=== PATIENT | male | born 1935 | race Caucasian/White ===

== ENCOUNTER → 2016-11-30 | Outpatient (CLI) | payer MEDICARE | LOC: NC 13:30 | PROVIDERS: ATTEND Family Medicine | DX: I48.91 Unspecified atrial fibrillation (principal) ==

== ENCOUNTER → 2016-12-06 | Outpatient (CLI) | payer MEDICARE | LOC: GMAJ 14:54 | PROVIDERS: ATTEND Family Medicine | DX: M06.9 Rheumatoid arthritis, unspecified (principal) ==

== ENCOUNTER 2016-12-07 11:58 | Observation (INO) | payer MEDICARE ==
[2016-12-07] MEDS ORDERED: LACTATED RINGERS 1,000 ML IVS ONE (12:27)
[2016-12-07] MEDS ORDERED: KETOROLAC TROMETHAMINE INJ 30 MG/ML VIAL IV ONE (12:27)
[2016-12-07] MEDS ORDERED: ONDANSETRON ODT 8 MG TAB SL SCH (12:30)
--- NOTE | 2016-12-07 13:46 | RAD ---
EXAM DESCRIPTION: XR ABDOMEN 2 VIEWS SUPINE ERECT CLINICAL HISTORY: back pain n/v COMPARISON: December 29, 2013 FINDINGS: AP supine and upright views of the abdomen show a nonspecific, nonobstructive bowel gas pattern with no evidence for free intraperitoneal air. Surgical clips from cholecystectomy are seen. Surgical clips in the mid epigastric region are also noted. No air-filled dilated loops of small bowel are seen. No significant air-fluid levels are identified. No obvious organomegaly is seen. No abnormal calcifications are seen in the expected location of the renal collecting systems. The radiopaque densities to the left of the lower lumbar spine is seen measuring up to 10 mm vertically. Severe vascular calcifications are identified. Pancreatic calcifications are noted suggesting chronic pancreatitis. Single view of the chest shows enlargement of the cardiac silhouette without pulmonary vascular congestion. Tortuosity of the thoracic aorta with calcifications of the aortic arch are seen. . Lungs are normally aerated and clear. IMPRESSION: Vertically oriented radiopaque oval density to the left of the spine at the L4-5 level could represent fill in the GI tract versus ureteral calculus. Correlate with any hematuria or flank pain. CT imaging could be useful for better evaluation. Otherwise nonspecific abdominal series stable from previous. Electronically signed by: Jon Way MD 12/07/2016 13:44
[2016-12-07] MEDS ORDERED: FLUCONAZOLE 100 MG TAB PO ONE (14:54)
--- NOTE | 2016-12-07 15:38 | CT ---
EXAM DESCRIPTION: CT ABDOMEN PELVIS WITHOUT IV CONTRAST CLINICAL HISTORY: hematuria, left flank pain COMPARISON: Abdominal series same day TECHNIQUE: Noncontrast transaxial CT images of the abdomen and pelvis are obtained with coronal and sagittal reconstructed images. Images are partly degraded by patient breathing motion artifact limiting detailed evaluation. CT scan done according to ALARA (As Low As Reasonably Achievable). FINDINGS: The visualized lung bases show mild peripheral interstitial thickening. Trace right pleural effusion is seen. Given the limitations of a noncontrast exam the liver, spleen, and adrenal glands are unremarkable. There is surgical absence of the gallbladder. There is a calcified 2 cm mass in the region of the head of the pancreas. Multiple irregular calcifications are seen throughout the body to tail of the pancreas. The pancreas is overall atrophic with mild diffuse dilatation of the main pancreatic duct. Surgical clips at the distal esophageal to gastroesophageal junction are seen consistent with prior surgery in this region. Correlate with patient history. Severe atherosclerotic disease is noted. A 7 mm nonobstructing calcification is seen in the an upper pole calyx of the right kidney. There is a 9 x 13 mm calcification in the proximal left ureter contributing to mild left hydronephrosis. The AP diameter of the left renal pelvis is 2 cm. Calcification is identified at the level of L3. Remainder of the ureter is unremarkable. Urinary bladder is unremarkable. Prostate is enlarged with mild central calcifications seen. Appendix is within normal limits. No small bowel obstruction is seen. Moderate amount of formed fecal material seen throughout the colon. There are mild to moderate scattered diverticuli of the colon without associated inflammatory changes or fluid collections. No pathologic lymphadenopathy. Orthopedic screw fixation of the left femoral head and neck is seen. There are moderate osteoarthritic changes of both hips. Some cortical lucency in the left femoral head is seen. Moderate degenerative changes of the spine are seen. There is spinal canal stenosis and foraminal encroachment in the lower lumbar spine region. IMPRESSION: Mild left hydronephrosis is seen secondary to in 9 x 13 mm calcification in the proximal left ureter. This corresponds to the findings seen on plain film x-ray s. Nonobstructing right nephrolithiasis. Significant pancreatic calcifications are seen suggesting history of chronic pancreatitis. Colon diverticulosis without CT evidence of diverticulitis. Other findings as described in body of the report. Electronically signed by: Jon Way MD 12/07/2016 15:36
[2016-12-07] MEDS ORDERED: cefTRIAXone SODIUM 1 GM in SODIUM CHL 0.9% 50ML MIN-BAG+ 50 ML IVPB ONE (15:54)
[2016-12-07] MEDS ORDERED: cefTRIAXone SODIUM 1 GM VIAL ONE (15:57)
[2016-12-07] MEDS ORDERED: SODIUM CHL 0.9% 50ML MIN-BAG+ 50 ML IVPB ONE (15:58)
--- NOTE | 2016-12-07 16:54 | ED.PDOC ---
History of Present Illness - General Chief Complaint: Problem Stated Complaint: difficulty urinating,left flank discomfort Time Seen by Provider: 12/07/16 12:26 Source: patient, family Exam Limitations: no limitations - History of Present Illness Initial Comments: the patient is an 81-year-old male presenting to the emergency room secondary tonausea and vomiting related to left flank pain as well as some dysuria and difficulty with urination. This started proximally 6 hours prior to arrival. No fevers. He has passed kidney stones in the past and these have been similar symptoms. He did see a urologist one and a half years ago when he passed another stone at that time. He apparently did not have to have lithotripsy at that time. He was told he had a larger stone in the kidney that may yet turn loose. The patient is anticoagulated on Coumadin. He is not having any other symptoms. He is not having abdominal pain. No fevers. No syncope or near syncope or chest pain. Timing/Duration: 4-6 hours Severity: moderate Improving Factors: nothing Worsening Factors: nothing Associated Symptoms: loss of appetite, malaise, nausea/vomiting Allergies/Adverse Reactions: Allergies NO KNOWN ALLERGY Allergy (Verified 07/24/16 08:27) Home Medications: Ambulatory Orders Folic Acid 1 mg PO AM 12/25/13 Losartan Potassium 50 mg PO DAILY 12/25/13 Methotrexate Sodium [Methotrexate] 12.5 mg PO .QFRIDAYS 12/25/13 Terazosin [Hytrin] 10 mg PO BEDTIME 12/25/13 Warfarin Sodium 2.5 mg PO DAILY 12/25/13 Albuterol Sulfate Nebs [Proventil Nebs] 2.5 mg NEB QID PRN 02/17/16 Citalopram Hydrobromide [Celexa] 10 mg PO DAILY 02/17/16 Tamsulosin [Flomax] 0.4 mg PO DAILY 02/17/16 Review of Systems - Review of Systems Constitutional: States: malaise EENTM: States: no symptoms reported Respiratory: States: no symptoms reported Cardiology: States: no symptoms reported Gastrointestinal/Abdominal: States: nausea, vomiting Genitourinary: States: dysuria, pain Musculoskeletal: States: back pain Skin: States: no symptoms reported Endocrine: States: no symptoms reported All other Systems: No Change from Baseline Past Medical History (General) - Patient Medical History Hx Seizures: No Hx Stroke: Yes - TIA's Hx Asthma: No Hx of COPD: Yes Hx Cardiac Disorders: Yes - Atrial fib Hx Congestive Heart Failure: No Hx Pacemaker: No Hx Hypertension: Yes Hx Diabetes: No Hx MRSA: No Surgical History: no surgical history - Vaccination History Hx Tetanus, Diphtheria Vaccination: Yes Hx Influenza Vaccination: Yes Hx Pneumococcal Vaccination: Yes - Social History Hx Tobacco Use: Yes - uses E-cigs now Hx Chewing Tobacco Use: No Hx Alcohol Use: No Hx Substance Use: No Hx Substance Use Treatment: No Hx Depression: Yes Hx Physical Abuse: No Hx Emotional Abuse: No Hx Suspected Abuse: No Family Medical History - Family History Father Living Status: Cause of : prostate cancer Brother Family History: No Known Living Status: Hx Family Congestive Heart Failure: Yes Hx Family Hypertension: Yes Hx Cardiac Disease: Yes - CABG Hx Family;Other: Another sibling with DM and cardiac hx Physical Exam - Physical Exam General Appearance: Alert, Obvious distress Eye Exam: bilateral normal Ears, Nose, Throat: normal ENT inspection, normal pharynx Neck: full range of motion, supple, normal inspection Respiratory: chest non-tender, lungs clear, normal breath sounds, no respiratory distress, no accessory muscle use Cardiovascular/Chest: normal peripheral pulses, no edema, other - regular rate Peripheral Pulses: radial,right: 2+, radial,left: 2+, dorsalis pedis,right: 2+, dorsalis pedis,left: 2+ Gastrointestinal/Abdominal: normal bowel sounds, non tender, soft Rectal Exam: deferred Back Exam: CVA tenderness (L) - mild Extremity: normal range of motion, non-tender, normal inspection, no pedal edema , normal capillary refill Neurologic: alert, normal mood/affect, oriented x 3 Skin Exam: normal color Comments: Vital Signs - 24 hr 12/07/16 12/07/16 12/07/16 12:10 14:34 14:38 Temperature 98.5 F Pulse Rate [ 60 56 L 58 L Left Brachial] Respiratory 20 16 18 Rate Blood Pressure 171/108 170/81 172/92 [Left Arm] O2 Sat by Pulse 96 96 96 Oximetry Progress - Progress Progress: 12/07/16 16:55 the patient is an 81-year-old male with left ureterolithiasis from a stone that is likely too large to pass on its own. The patient did have significant pain and nausea and vomiting upon arrival. He has received some pain medications and nausea medications and is doing better. He has also received some IV fluids. The patient will be admitted overnight for pain control and nausea control. He will go see his urologist tomorrow morning at 8: 30 AM at his office. The patient did receive a dose of Diflucan and Rocephin for the bacteria and yeast seen in his urine. He does not appear septic. Renal function appears good. Admit for above reasons and monitoring. He will need to be nothing by mouth tomorrow morning before going to the urologist office. - Results/Orders Results/Orders: 12/07/16 12:30 Ondansetron Odt [Zofran ODT] 4 mg SL ONCE 12/07/16 14:00 URINE CULTURE W/COLONY COUNT Stat Laboratory Results - last 24 hr 12/07/16 12/07/16 12:10 14:00 WBC 7.9 RBC 4.26 L Hgb 13.0 L Hct 40.5 L MCV 95.1 H MCH 30.5 MCHC 32.0 L RDW 17.2 H Plt Count 171 MPV 10.2 Absolute Neuts (auto) 6.50 Absolute Lymphs (auto) 0.90 L Absolute Monos (auto) 0.40 Absolute Eos (auto) 0.10 Absolute Basos (auto) 0.10 Neutrophils % 81.5 H Lymphocytes % 11.5 L Monocytes % 5.2 Eosinophils % 0.9 L Basophils % 0.9 PT 21.2 H* INR 1.920 PTT (SP) 38.9 H Sodium 141 Potassium 3.9 Chloride 107 Carbon Dioxide 27 Anion Gap 10.9 L BUN 27 H Creatinine 0.86 BUN/Creatinine Ratio 31.4 H Random Glucose 137 H Serum Osmolality 288.5 Calcium 8.9 Total Bilirubin 0.4 AST 28 ALT 20 Alkaline Phosphatase 91 Creatine Kinase 137 CK-MB (CK-2) 1.5 CK-MB (CK-2) % Not Reportable Troponin I 0.02 Serum Total Protein 7.0 Albumin 4.1 Globulin 2.9 Albumin/Globulin Ratio 1.4 Amylase 117 H Lipase 23 Urine Color Maureen Urine Appearance Cloudy Urine pH 6.0 Ur Specific [place] 1.025 Urine Protein 100 H Urine Glucose (UA) Negative Urine Ketones 15 H Urine Blood Large H Urine Nitrite Negative Urine Bilirubin Small H Urine Urobilinogen 0.2 Ur Leukocyte Esterase Trace H Urine RBC >50 H Urine WBC 3-5 H Ur Epithelial Cells 0-1 Amorphous Sediment 2+ Urine Bacteria 2+ H Urine Yeast 2+ budding x-ray shows moderate constipation and a possible stone in the left ureter. CT scan confirms a 9 x 13 mm stone in the proximal left ureter with mild hydronephrosis. Departure - Departure Clinical Impression: Calcium ureterolithiasis, Uncontrolled pain Vomiting Qualifiers: Vomiting type: unspecified Vomiting Intractability: non-intractable Nausea presence: with nausea Qualifier Code: (R11.2) Nausea with vomiting, unspecified Disposition: Admit Patient Home Medications: Ambulatory Orders Folic Acid 1 mg PO AM 12/25/13 Losartan Potassium 50 mg PO DAILY 12/25/13 Methotrexate Sodium [Methotrexate] 12.5 mg PO .QFRIDAYS 12/25/13 Terazosin [Hytrin] 10 mg PO BEDTIME 12/25/13 Warfarin Sodium 2.5 mg PO DAILY 12/25/13 Albuterol Sulfate Nebs [Proventil Nebs] 2.5 mg NEB QID PRN 02/17/16 Citalopram Hydrobromide [Celexa] 10 mg PO DAILY 02/17/16 Tamsulosin [Flomax] 0.4 mg PO DAILY 02/17/16 Decision To Admit - Decistion To Admit Decision to Admit Reason: Medical Nature Decision to Admit Date: 12/07/16 Decision to Admit Time: 16:58
--- NOTE | 2016-12-07 17:07 | HP ---
SUPERVISING PHYSICIAN: Magdy Jones MD CHIEF COMPLAINT: Kidney stones. HISTORY OF PRESENT ILLNESS: This is an 81-year-old male patient who presented to the Emergency Room due to nausea and vomiting that radiated to the left flank as well as some dysuria and difficulty with urination. His symptoms started about 6 hours prior to arrival to the Emergency Room. He has had a significant history of kidney stones and per the patient, he was in so much pain that it caused the nausea and vomiting and he has had similar symptoms in the past. Dr. Hammond in [place] is his urologist. A CT scan was done and showed mild left hydronephrosis secondary to a 9 by 13 mm calcification in the proximal left ureter. The abdominal x-ray also showed vertically oriented radiopaque oval density to the left of the spine at the L4-5 level that could represent fill in the GI tract versus ureteral calculus. The Emergency Room physician called Dr. Hammond, the patient's urologist, and he recommended that he be admitted to the hospital overnight for pain control as well as intravenous fluid hydration and that Dr. Hammond would see the patient at 8: 30 in the morning in [place]. The patient was given Rocephin for his urinary tract infection, as well as intravenous fluids, Zofran, and Toradol. His nausea and vomiting resolved after his pain was controlled. I was called for admission. PAST MEDICAL HISTORY: 1. Atrial fibrillation. 2. Benign prostatic hypertrophy. 3. Hyperlipidemia. 4. Hypertension. 5. Peptic ulcer disease. 6. Cardiovascular disease. 7. Diverticulosis. 8. Renal stones. 9. Osteoporosis. 10. Rheumatoid arthritis. 11. Transient ischemic attacks. 12. Fatty liver disease. PAST SURGICAL HISTORY: 1. Cholecystectomy. 2. Fracture repair of the left hip. 3. Vagotomy and pyloroplasty. ALLERGIES: NO KNOWN DRUG ALLERGIES. SOCIAL HISTORY: He is and has three children. He is retired. He has a past history of cigarette smoking and he quit in 2011. He drinks alcohol rarely and he denies any illicit drug use. CODE STATUS: Full code. REVIEW OF SYSTEMS: Ten-point review of systems is negative with the exception of what was mentioned in the history of present illness. PHYSICAL EXAMINATION: VITAL SIGNS: Afebrile. Heart rate 50. Blood pressure 177/75. Respiratory rate 20. O2 saturation 94% on room air. GENERAL: This is an 81-year-old male patient who is lying in his hospital bed. He is in no acute distress. HEENT: Normocephalic, atraumatic. Pupils are equal and reactive. Oropharynx is clear. Oral mucous membranes are moist. NECK: Supple without mass. No jugular venous distention. RESPIRATORY: Clear to auscultation bilaterally. CHEST: There is equal rise and fall of the chest with inspiration and expiration. CARDIAC: Bradycardic rate and normal rhythm. BACK: There is some left CVA tenderness. ABDOMEN: Soft, nondistended, nontender. Bowel sounds are positive. EXTREMITIES: No cyanosis, clubbing or edema. Pedal pulses are palpable, +2 bilaterally. SKIN: There are no lesions or rashes. NEUROLOGIC: Awake, alert and oriented times three. LABORATORY: WBC 7.9, hemoglobin 13, hematocrit 40.5, platelet count 171. Sodium 141, potassium 3.9, chloride 107, carbon dioxide 27, BUN 27, creatinine 0.86. Amylase 117. Urine shows urine protein 100, urine ketones 15, urine blood large, urine bilirubin small, urine leukocyte esterase trace, urine RBCs greater than 50, urine WBCs 3 to 5, urine bacteria 2+. All other labs and films have been reviewed via the EMR. ASSESSMENT: 1. Nausea and vomiting. 2. 9 by 13 mm obstructing kidney stone in the left ureter. 3. Severe left flank pain related to #2. 4. Urinary tract infection. 5. Benign prostatic hypertrophy. 6. Atrial fibrillation. 7. Hypertension. PLAN: We will admit the patient overnight. I will give him intravenous fluids. I have ordered another dose of Toradol if needed although his pain has been quite well controlled with the Toradol. He has had no further complaints of nausea or vomiting, but he does have Zofran. I have held his Coumadin tonight. I have repeated his lab as well as coags in the morning. We will try to discharge him at about 6:45 in the morning so he can make his 8:[address] Hammond. After he sees Dr. Hammond, he will need to followup with . We will send all pertinent films and labs with him in the morning. We will have him on the telemetry to watch his heart rate. We will continue the patient closely and followup as needed. is the collaborating physician and available for consultation. #[id number] [facility]
[2016-12-07] MEDS ORDERED: ONDANSETRON INJ 4 MG/2 ML VIAL IV PRN (18:03)
[2016-12-07] MEDS ORDERED: HYDROcodone 5MG/APAP 325MG 1 EA TAB PO PRN (18:03)
[2016-12-07] MEDS ORDERED: SODIUM CHLORIDE 0.9% (FLUSH) 10 ML SYG IV PRN (18:03)
[2016-12-07] MEDS ORDERED: KCL 20MEQ/D5 1/2NS 1,000 ML IVS PRN (18:09)
[2016-12-07] MEDS ORDERED: KCL 20MEQ/D5 1/2NS 1,000 ML IVS ONE (18:11)
[2016-12-07] MEDS ORDERED: KETOROLAC TROMETHAMINE INJ 30 MG/ML VIAL ONE ×2 (18:21→20:39)
[2016-12-07] MEDS: KETOROLAC TROMETHAMINE INJ 30 MG/ML VIAL IV SCH (18:24)
[2016-12-07] MEDS ORDERED: IV SET AND CAP CHANGE INJ INJ SCH (18:30)
[2016-12-07] MEDS ORDERED: TERAZOSIN 5 MG CAP PO ONE (20:39)
[2016-12-07] MEDS ORDERED: TERAZOSIN 5 MG CAP PO SCH (21:00)
[2016-12-07] MEDS ORDERED: HYDROcodone 5MG/APAP 325MG 1 EA TAB ONE (22:27)
[2016-12-08] MEDS: KETOROLAC TROMETHAMINE INJ 30 MG/ML VIAL IV SCH (00:27)
[2016-12-08] MEDS ORDERED: SODIUM CHL 0.9% 50ML MIN-BAG+ 50 ML IVPB ONE (03:39)
[2016-12-08] MEDS ORDERED: cefTRIAXone SODIUM 1 GM VIAL ONE (03:39)
[2016-12-08] MEDS ORDERED: cefTRIAXone SODIUM 1 GM in SODIUM CHL 0.9% 50ML MIN-BAG+ 50 ML IVPB SCH (04:00)
[2016-12-08 06:36] VITALS: BP 172/77; TEMP 98.4; O2SAT 97
[2016-12-08] MEDS ORDERED: CITALOPRAM HYDROBROMIDE 10 MG PO SCH (09:00)
[2016-12-08] MEDS ORDERED: TAMSULOSIN 0.4 MG CAP PO SCH (09:00)
[2016-12-08] MEDS ORDERED: NON-FORMULARY MEDICATION 1 EA MIS (Losartan Potassium [Losartan Potassium] 50 MG) PO SCH (09:00)
--- NOTE | 2016-12-08 10:22 | DS ---
SUPERVISING PHYSICIAN: Wesley Veras MD DISCHARGE DIAGNOSIS: 1. 9 by 13 mm obstructing kidney stone in the left ureter. 2. Nausea and vomiting, mostly resolved and secondary to #1. 3. Severe left flank pain, related to #1. 4. Urinary tract infection. 5. Hypertension. 6. Benign prostatic hypertrophy. 7. Atrial fibrillation. HISTORY OF PRESENT ILLNESS: This is an 81-year-old male patient who presented to the Emergency Room due to intractable nausea and vomiting that radiated to the left flank as well as some dysuria and difficulty with urination. His symptoms started about 6 hours prior to arrival to the Emergency Room. He has had a significant history of kidney stones and per the patient, he was in so much pain that it caused extremely bad nausea and vomiting and he has had similar symptoms in the past. Dr. Hammond in [place] is his urologist. A CT scan was performed in the Emergency Room and showed mild left hydronephrosis secondary to a 9 by 13 mm calcification in the proximal left ureter. The abdominal x-ray confirmed the same findings. Emergency Room physician, Dr. Ketan Veras called Dr. Hammond and he recommended that he be admitted to the hospital overnight for pain control as well as intravenous fluid hydration and that Dr. Hammond would see the patient at 8:30 today on the day of discharge in his office in [place]. The patient was given Rocephin for his urinary tract infection, as well as intravenous fluids, Zofran , and Toradol. His nausea and vomiting resolved and his pain was well controlled with the Toradol. He was admitted to the hospital for observation, pain control, and intravenous fluids. HOSPITAL COURSE: Overnight, the patient did very well. His Coumadin was held overnight. He did receive two doses of Toradol and it was very effective for his pain. This morning, he had no complaints of nausea, vomiting, and just mild left flank pain. His labs in the Emergency Room showed WBC 7.9, hemoglobin 13, hematocrit 40. This morning, WBCs were 6.8, hemoglobin 11.1, hematocrit 33.7. CMP was basically within normal limits with the exception of his amylase was 117 in the Emergency Room and his BUN was 27 in the Emergency Room and BUN on discharge was 29. Urine showed urine protein 100, urine ketones 15, urine blood large amount, urine nitrite negative, urine bilirubin was small, urine leukocyte esterase trace, urine RBCs greater than 50, urine WBCs 3 to 5, and urine bacteria 2+, urine yeast 2+ budding. INR on admission was 1.92 and on discharge was 2.28. Coumadin was held last night. PT-T on admission was 38.9 and on discharge 40.3. DISCHARGE PLAN: We will discharge the patient in stable condition. He is to resume his previous activity as well as his previous diet. He is to see Dr. Hammond, his urologist, this morning at 8:30 for evaluation of the kidney stone. He was discharged home with his outpatient medications. He has been told to followup with within the next one to two weeks after his appointment with DR. Hammond. If he has any further complications or problems , he is to contact Dr. Hammond's office, ' office, or return to the hospital. Dr. Veras is the collaborating physician and available for consultation. DISCHARGE MEDICATIONS: 1. Warfarin. 2. Hytrin. 3. Methotrexate. 4. Losartan. 5. Folic acid. 6. Citalopram. 7. Albuterol nebulizers. 8. Flomax. #[id number] [facility]
== END 2016-12-08 07:00 | disposition home health service (06) ==
LOC: ER 11:58 → MS 17:06
PROVIDERS: ADMIT Nurse Practitioner Acute Care; ATTEND Nurse Practitioner Acute Care
DX: N13.2 Hydronephrosis with renal and ureteral calculous obstruction (principal); N39.0 Urinary tract infection, site not specified; R11.2 Nausea with vomiting, unspecified; R10.32 Left lower quadrant pain; I10 Essential (primary) hypertension; N40.1 Benign prostatic hyperplasia with lower urinary tract symptoms; I48.91 Unspecified atrial fibrillation; E78.5 Hyperlipidemia, unspecified; M81.0 Age-related osteoporosis without current pathological fracture; M06.9 Rheumatoid arthritis, unspecified; K57.30 Diverticulosis of large intestine without perforation or abscess without bleeding; Z79.01 Long term (current) use of anticoagulants; Z79.899 Other long term (current) drug therapy; Z87.442 Personal history of urinary calculi; Z87.11 Personal history of peptic ulcer disease; Z86.73 Personal history of transient ischemic attack (TIA), and cerebral infarction without residual deficits; Z87.891 Personal history of nicotine dependence; Z90.49 Acquired absence of other specified parts of digestive tract
CPT/HCPCS: 36415 ×3; 74020; 74176; 80053 ×2; 81001; 82150; 82550; 82553; 83690; 84484; 85025 ×2; 85610 ×2; 85730 ×2; 87086; 94762; 96361; 96365; 96366; 96375; 96376 ×2; 99284; G0378; J0696 ×2; J1885 ×3; J7050 ×2; J7120

== ENCOUNTER → 2016-12-19 | Outpatient (CLI) | payer MEDICARE | LOC: NC 12:05 | PROVIDERS: ATTEND Family Medicine | DX: I48.91 Unspecified atrial fibrillation (principal) ==

== ENCOUNTER 2017-01-20 09:29 | Observation (INO) | payer MEDICARE ==
--- NOTE | 2017-01-20 11:14 | CT ---
EXAM DESCRIPTION: Head CLINICAL HISTORY: htn, addi, weakness, anticoag, fall COMPARISON: January 20, 2017 TECHNIQUE: Noncontrast transaxial CT images of the head are obtained from base to vertex. CT scan was done according to ALARA (As Low as Reasonably Achievable). FINDINGS: The midline structures are not displaced. Sulci are age-appropriate. There are areas of decreased attenuation in the periventricular white matter and the white matter of the centrum semiovale. There is no evidence of mass, mass-effect, hydrocephalus, or acute intracranial hemorrhage. No abnormal extra axial fluid collection is seen. Bone windows show no evidence of depressed skull fracture. Moderate vascular calcifications are seen. Mild mucosal thickening of the ethmoid air cells is seen. IMPRESSION: 1. Age-appropriate atrophy with evidence of old small vessel ischemic type changes seen. 2. No acute abnormality is seen on noncontrast CT of the head. Electronically signed by: Jon Way MD 01/20/2017 11:13 AM SERVICES DELIVERY DRIVER
--- NOTE | 2017-01-20 11:16 | RAD ---
EXAM DESCRIPTION: Chest,1 View CLINICAL HISTORY: htn, weakness COMPARISON: None. IMPRESSION: Single AP portable upright view of the chest shows cardiac silhouette and pulmonary vasculature to be within normal limits. Lungs are mildly hyperinflated without acute infiltrate or consolidation. No obvious pleural effusion or pneumothorax is seen. Electronically signed by: Jon Way MD 01/20/2017 11:15 AM [employer] [employer]
[2017-01-20] MEDS ORDERED: SPIRONOLACTONE 25 MG TAB PO ONE (11:25)
[2017-01-20] MEDS ORDERED: ALPRAZolam 0.25 MG TAB PO ONE (11:25)
[2017-01-20] MEDS ORDERED: amLODIPine BESYLATE 5 MG TAB PO ONE (11:25)
--- NOTE | 2017-01-20 12:36 | ED.PDOC ---
History of Present Illness - General Chief Complaint: General Time Seen by Provider: 01/20/17 10:10 Source: patient, family Exam Limitations: clinical condition - History of Present Illness Initial Comments: The patient is an 81-year-old male presenting to the emergency room with his family secondary to some dizziness weakness and fatigue as well as a mild headache since he had a fall 2 days ago at home. He was turning around in his kitchen when he tripped and fell backwards. He has the crown of the scalp on the left side posteriorly on the edge of the stove. There was no definite loss of consciousness. Since that time he has been dizzy and weak. He does take a significant blood thinner. He does have a history of some mild bradycardia. He has significant only hypertensive today here with systolic blood pressures ranging from 185-210. Heart rates on telemetry monitoring have been ranging from 42 up to 60. He takes terazosin and losartan. he sees Dr. Salguero. his balance does seem poor today and he does seem quite weak in general. Timing/Duration: 24 hours Severity: moderate Improving Factors: rest Worsening Factors: movement Associated Symptoms: headaches, malaise, weakness Allergies/Adverse Reactions: Allergies NO KNOWN ALLERGY Allergy (Verified 01/20/17 09:49) Home Medications: Ambulatory Orders Folic Acid 1 mg PO AM 12/25/13 Losartan Potassium 50 mg PO BID 12/25/13 Methotrexate Sodium [Methotrexate] 12.5 mg PO .QFRIDAYS 12/25/13 Terazosin [Hytrin] 10 mg PO BEDTIME 12/25/13 Warfarin Sodium 2.5 mg PO DAILY 12/25/13 Albuterol Sulfate Nebs [Proventil Nebs] 2.5 mg NEB QID PRN 02/17/16 Citalopram Hydrobromide [Celexa] 10 mg PO DAILY 02/17/16 Review of Systems - Review of Systems Constitutional: States: malaise, weakness EENTM: States: no symptoms reported Respiratory: States: no symptoms reported Cardiology: States: no symptoms reported Gastrointestinal/Abdominal: States: no symptoms reported Genitourinary: States: no symptoms reported Musculoskeletal: States: no symptoms reported - chronic changes only Skin: States: no symptoms reported - with the exception of the healing 1 inch laceration to the left posterior scalp. No evidence of infection. Neurological: States: headache, weakness Endocrine: States: no symptoms reported All other Systems: No Change from Baseline Past Medical History (General) - Patient Medical History Hx Seizures: No Hx Stroke: No - TIAs Hx Asthma: No Hx of COPD: Yes Hx Cardiac Disorders: Yes - Atrial fib Hx Congestive Heart Failure: No Hx Pacemaker: No Hx Hypertension: Yes Hx Diabetes: No Hx MRSA: No Surgical History: no surgical history - Vaccination History Hx Tetanus, Diphtheria Vaccination: Yes Hx Influenza Vaccination: Yes Hx Pneumococcal Vaccination: Yes - Social History Hx Tobacco Use: Yes - E-cigs Hx Chewing Tobacco Use: No Hx Alcohol Use: No Hx Substance Use: No Hx Substance Use Treatment: No Hx Depression: Yes Hx Physical Abuse: No Hx Emotional Abuse: No Hx Suspected Abuse: No Family Medical History - Family History Father Living Status: Cause of : prostate cancer Brother Family History: No Known Living Status: Hx Family Congestive Heart Failure: Yes Hx Family Hypertension: Yes Hx Cardiac Disease: Yes - CABG Hx Family;Other: Another sibling with DM and cardiac hx Physical Exam - Physical Exam General Appearance: Comfortable, Frail - the patient has a 1 inch laceration to his posterior left scalp that is hemostatic with minimal gape of the wound, No apparent distress, Other - mildly drowsy Eye Exam: bilateral normal Ears, Nose, Throat: normal ENT inspection, normal pharynx, other - ild chronic hearing loss bilaterally Neck: non-tender, full range of motion, supple, normal inspection Respiratory: chest non-tender, lungs clear, normal breath sounds, no respiratory distress, no accessory muscle use Cardiovascular/Chest: normal peripheral pulses, no edema, other - bradycardic Peripheral Pulses: radial,right: 2+, radial,left: 2+, dorsalis pedis,right: 2+, dorsalis pedis,left: 2+ Gastrointestinal/Abdominal: non tender, soft Rectal Exam: deferred Back Exam: no CVA tenderness Extremity: normal range of motion, non-tender, normal inspection, no pedal edema , normal capillary refill Neurologic: alert Skin Exam: normal color - see above Comments: Vital Signs - 24 hr 01/20/17 01/20/17 09:46 10:44 Temperature 97.8 F Pulse Rate [ 51 L 50 L Left Radial] Respiratory 18 18 Rate Blood Pressure 167/71 187/77 [Left Arm] O2 Sat by Pulse 98 98 Oximetry Progress - Progress Progress: 01/20/17 12:41 the patient is an 81-year-old male that appears to have significant postconcussive syndrome including generalized weakness, headache and dizziness. Additionally the patient has having significant sinus bradycardia down into the low 40s as well as uncontrolled hypertension with systolic blood pressures ranging from 185-210. The patient was given a dose of amlodipine here and will be watched as an inpatient overnight to make sure that the blood pressures do come down appropriately. Certainly the head injury, even though the head CT showed no acute pathology, may be pushing up the blood pressure some. The patient needs to be evaluated to see if he is going to be functional on his own in this current state or if he is going to require some rehabilitation. Contact with his wind energy technician would be beneficial for medication adjustments in regards to the bradycardia and hypertension. - Results/Orders Results/Orders: Laboratory Tests 01/20/17 10:25 WBC 6.0 RBC 4.29 L Hgb 13.1 L Hct 40.6 L MCV 94.8 H MCH 30.5 MCHC 32.2 L RDW 17.7 H Plt Count 148 MPV 9.8 Absolute Neuts (auto) 4.10 Absolute Lymphs (auto) 1.10 Absolute Monos (auto) 0.60 Absolute Eos (auto) 0.20 Absolute Basos (auto) 0.10 Neutrophils % 68.1 Lymphocytes % 18.4 L Monocytes % 9.9 H Eosinophils % 2.6 Basophils % 1.0 PT 18.9 H INR 1.680 PTT (SP) 37.1 H Sodium 141 Potassium 4.1 Chloride 106 Carbon Dioxide 27 Anion Gap 12.1 BUN 24 H Creatinine 0.95 BUN/Creatinine Ratio 25.3 H Random Glucose 98 Serum Osmolality 285.3 Calcium 8.9 Total Bilirubin 0.6 AST 21 ALT 22 Alkaline Phosphatase 100 Creatine Kinase 46 CK-MB (CK-2) 1.1 CK-MB (CK-2) % Not Reportable Troponin I 0.02 B-Natriuretic Peptide 160.0 H Serum Total Protein 6.9 Albumin 3.9 Globulin 3.0 Albumin/Globulin Ratio 1.[address] shows no evidence of acute injury. EKG shows sinus bradycardia at a rate of 47 bpm. There is a significant first- degree AV block. Possible Q-wave in lead 3 only. Slow R-wave transition in V2. Chest x-ray shows no acute pathology. - EKG/XRAY/CT CT Ordered: Yes Departure - Departure Clinical Impression: Uncontrolled hypertension, Sinus bradycardia, Postconcussive syndrome Disposition: Admit Patient Home Medications: Ambulatory Orders Folic Acid 1 mg PO AM 12/25/13 Losartan Potassium 50 mg PO BID 12/25/13 Methotrexate Sodium [Methotrexate] 12.5 mg PO .QFRIDAYS 12/25/13 Terazosin [Hytrin] 10 mg PO BEDTIME 12/25/13 Warfarin Sodium 2.5 mg PO DAILY 12/25/13 Albuterol Sulfate Nebs [Proventil Nebs] 2.5 mg NEB QID PRN 02/17/16 Citalopram Hydrobromide [Celexa] 10 mg PO DAILY 02/17/16 Decision To Admit - Decistion To Admit Decision to Admit Reason: Medical Nature Decision to Admit Date: 01/20/17 Decision to Admit Time: 12:45
--- NOTE | 2017-01-20 12:39 | HP ---
SUPERVISING PHYSICIAN: NADIA JONES MD CHIEF COMPLAINT: Weakness and "I hit my head." HISTORY OF PRESENT ILLNESS: This is an 81 year-old male patient who somehow slipped and hit his head on a stove this past Monday. He hit the left part of the back of his head. He denies any loss of consciousness but he could not get up. He did call 911 and they assisted him up. At that time, he did not come to the hospital but over the past several days since that fall he has had weakness and dizziness and he did state that his blood pressure had been very high but he does not remember how high it was. In the Emergency Room, he was found to have significant bradycardia that went down into the low 40s and his blood pressure was uncontrolled with his systolic blood pressure ranging from 85 to 210. He was given a dose of amlodipine. He also had a head CT that showed no acute pathology. I was called for admission. PAST MEDICAL HISTORY: 1. Atrial fibrillation. 2. Benign prostatic hypertrophy. 3. Hyperlipidemia. 4. Hypertension. 5. Peptic ulcer disease. 6. Cardiovascular disease. 7. Diverticulosis. 8. Renal stones. 9. Osteoporosis. 10. Rheumatoid arthritis. 11. Transient ischemic attacks. 12. Fatty liver disease. PAST SURGICAL HISTORY: 1. Cholecystectomy. 2. Fracture repair of the left hip. 3. Vagotomy and pyloroplasty. CURRENT MEDICATIONS: ALLERGIES: NO KNOWN DRUG ALLER. SOCIAL HISTORY: He is , he has 3 children. He is retired, he has a past history of cigarette smoking but he quit in 2011. He occasionally drinks an alcoholic beverage and he denies any illicit drug use. CODE STATUS: Full code. REVIEW OF SYSTEMS: GENERAL: Denies fever, chills or weight changes. . HEENT: Denies sinus symptoms, ear pain, vision changes or sore throat. RESPIRATORY: Denies coughing, wheezing, or shortness of breath. CARDIAC: Denies chest pain or palpitations. ABDOMEN: Complains of constipation but denies abdominal pain, nausea or vomiting. NEUROLOGICAL: Complains of weakness and dizziness but denies seizures. PHYSICAL EXAMINATION: VITAL SIGNS: He is afebrile. Pulse rate was in the 40s in the Emergency Room but has come up to the mid 50s after admission to the floor. Blood pressure when admitted to the floor was systolic in the 190s and is now 147/65. Respiratory rate 20, 02 saturation is 92% on room air. GENERAL: This is an 81 year-old obese male patient who is lying in his hospital bed. HEENT: Normocephalic. He has a 1 inch laceration on his posterior left scalp that has a slight gap of the wound. There is no bleeding noted. NECK: Supple without mass. CHEST: Clear to auscultation bilaterally. There is equal rise and fall of the chest with inspiration and expiration. CARDIOVASCULAR: Bradycardiac rate, regular rhythm. ABDOMEN: Soft, nondisplaced, non-tender. Bowel sounds are positive. EXTREMITIES: No cyanosis, clubbing, or edema. NEUROLOGICAL: He is awake, alert, and oriented x3. LABORATORY: WBC 6, hemoglobin 13.1, hematocrit 40.6. PT is 18.9, INR is 1.68 , PTT 37.1. Chemistries are basically within normal limits with the exception of BUN is 24, BNP is 160. Chest x-ray shows no obvious pleural effusion or pneumothorax and a stable chest x-ray without acute infiltrate or consolidation. His head CT is as per the operative procedure. All other labs and films have been reviewed via the EMR. ASSESSMENT: 1. Post concussion syndrome. 2. Generalized weakness. 3. Chronic bradycardia noted in the EMR since December of 2013. 4. Uncontrolled hypertension. PLAN: We will admit the patient for observation. We will watch his blood pressure. I have given him one dose of Clonidine and his Losartan may need to be adjusted. We are not quite sure if he really took his blood pressure medication after his fall and that may need to be taken into consideration. Hopefully, we can get his blood pressure under control, watch his neurological status and he can be discharged tomorrow. is the collaborating physician and available for consultation. #[id number] [facility]
[2017-01-20] MEDS ORDERED: ALBUTEROL SULFATE 2.5 MG/3 ML VIAL NEB PRN (15:49)
[2017-01-20] MEDS ORDERED: cloNIDine HCL 0.1 MG TAB PO ONE (15:52)
[2017-01-20] MEDS ORDERED: IV SET AND CAP CHANGE INJ INJ SCH (16:00)
[2017-01-20] MEDS ORDERED: WARFARIN SODIUM 3 MG TAB PO SCH (16:00)
[2017-01-20] MEDS ORDERED: WARFARIN SODIUM 2.5 MG TAB ONE (16:17)
[2017-01-20] MEDS: WARFARIN SODIUM 2.5 MG TAB PO SCH (16:30)
[2017-01-20] MEDS: PANTOPRAZOLE SODIUM IV 40 MG VIAL IV SCH (16:31)
[2017-01-20] MEDS: IPRATROPIUM/ALBUTEROL 3 ML VIAL INH SCH ×2 (17:35→20:59)
[2017-01-20] MEDS: TERAZOSIN 5 MG CAP PO SCH (20:42)
[2017-01-20] MEDS: LOSARTAN POTASSIUM 25 MG TAB PO SCH (20:42)
[2017-01-20] MEDS ORDERED: MAGNESIUM HYDROXIDE 30 ML UD PO ONE (22:58)
--- NOTE | 2017-01-20 22:59 | PCM.CORE ---
Physician DVT/VTE - Prophylaxis Currently: Patient already on anticoagulation therapy - 5 or more Very High Risk Treatments: Early Ambulation *, Sequential Compression Device
[2017-01-21] MEDS: ACETAMINOPHEN 325 MG TAB PO PRN ×2 (02:18→22:09)
[2017-01-21] MEDS ORDERED: CITALOPRAM HBR 20 MG TAB ONE (06:12)
[2017-01-21] MEDS: SODIUM CHLORIDE 0.9% (FLUSH) 10 ML SYG IV PRN (06:16)
[2017-01-21] MEDS: SODIUM CHLORIDE 0.9% 10 ML VIAL IV PRN (06:16)
[2017-01-21] MEDS: PANTOPRAZOLE SODIUM IV 40 MG VIAL IV SCH (06:16)
[2017-01-21] MEDS: CITALOPRAM HBR 20 MG TAB PO SCH (08:44)
[2017-01-21] MEDS: LOSARTAN POTASSIUM 25 MG TAB PO SCH ×2 (08:45→20:49)
[2017-01-21] MEDS: IPRATROPIUM/ALBUTEROL 3 ML VIAL INH SCH ×4 (12:15→19:51)
[2017-01-21] MEDS: WARFARIN SODIUM 2.5 MG TAB PO SCH (12:25)
[2017-01-21] MEDS ORDERED: MAGNESIUM HYDROXIDE 30 ML UD PO ONE (12:44)
[2017-01-21] MEDS ORDERED: WARFARIN SODIUM 1 MG TAB PO ONE (14:32)
--- NOTE | 2017-01-21 16:28 | PN ---
DATE: 01/21/17 SUPERVISING PHYSICIAN: Magdy Jones M.D. SUBJECTIVE: The patient is lying in bed. He still feels quite weak. He also has complained of constipation. He got Milk of Magnesia last night and he has had no results. He received another dose of Milk of Magnesia earlier today. His is about to give him some prune juice. He denies any shortness of breath, nausea, vomiting or chest pains. Denies any dizziness or headaches. OBJECTIVE: He is afebrile, heart rate has run between 50s and 60s, blood pressure 125/66, respiratory rate 20, O2 sat is 94% on 2 liters nasal cannula. RESPIRATORY: Essentially clear to auscultation bilaterally. CARDIAC: Regular rate and rhythm. It occasionally has a bradycardic rate. ABDOMEN: Soft, nondistended. It is very mildly tender diffusely. Bowel sounds are positive. NEUROLOGIC: Pupils are equal and reactive. He is alert and oriented times three. LABORATORY: Chemistries are basically within normal limits. Hemoglobin 11.8, hematocrit 36.9. INR is 1.7. All other labs and films have been reviewed via the EMR. ASSESSMENT: 1. Post concussion syndrome. 2. Generalized weakness. 3. Chronic bradycardia although he did have a reported heart rate in the 40s in the Emergency Room, his heart rate has now been in the 50s and 60s over the last 18 hours or so. 4. Uncontrolled hypertension that has since resolved since admission to the hospital. PLAN: We will continue present supportive care. The patient is an observation patient and his neurologic checks have remained fairly stable, although he is very weak. He has not ambulated much. We will get an ambulation study on him tomorrow as well as encourage good pulmonary toilet. He does see Dr. Salguero and Dr. Salguero was not available on Monday. At discharge, hopefully, we could get him an appointment to see Dr. Salguero maybe Monday. I have given him 1 additional mg of Coumadin tonight as I would very slowly like to bring his INR up because of the concussion. We will monitor his constipation symptoms, hopefully he will have a bowel movement today. I am not sure if his fall was due to the bradycardia because he has had chronic bradycardia for several years now. His just reports that it has never gotten into the 40s. He will most likely need a cardiac workup and he may need a Holter monitor for a few weeks. Will continue to monitor the patient's symptoms closely and treat as needed. I have repeated some lab, including an INR tomorrow. is the collaborating physician available for consultation. #[id number] [facility]
[2017-01-21] MEDS ORDERED: BISACODYL SUPPOSITORY 10 MG PR ONE (18:37)
[2017-01-21] MEDS: SODIUM CHLORIDE 0.9% (FLUSH) 10 ML SYG IV SCH (20:49)
[2017-01-21] MEDS: TERAZOSIN 5 MG CAP PO SCH (20:49)
[2017-01-22] MEDS: SODIUM CHLORIDE 0.9% (FLUSH) 10 ML SYG IV PRN (06:13)
[2017-01-22] MEDS: SODIUM CHLORIDE 0.9% 10 ML VIAL IV PRN (06:13)
[2017-01-22] MEDS: PANTOPRAZOLE SODIUM IV 40 MG VIAL IV SCH (06:13)
[2017-01-22] MEDS: IPRATROPIUM/ALBUTEROL 3 ML VIAL INH SCH (08:30)
[2017-01-22] MEDS: CITALOPRAM HBR 20 MG TAB PO SCH (09:13)
[2017-01-22] MEDS: LOSARTAN POTASSIUM 25 MG TAB PO SCH (09:13)
[2017-01-22] MEDS: SODIUM CHLORIDE 0.9% (FLUSH) 10 ML SYG IV SCH (09:15)
[2017-01-22 10:46] VITALS: BP 121/69; TEMP 98.5; O2SAT 96
--- NOTE | 2017-01-22 11:34 | DS ---
DISCHARGE DIAGNOSIS: 1. Post concussion syndrome after blunt head injury and a fall. 2. History of recurring falls with most recently striking his head on a cooking stove with no loss of consciousness. 3. Extreme weakness contributing to the falling tendency. 4. Documented sinus bradycardia with rates in the low 40s possibly contributing to the falling propensity and requiring further cardiac evaluation and stabilization. 5. Chronic constipation. HISTORY OF PRESENT ILLNESS: This 81 year-old white male was admitted to the hospital via the Emergency Room after he was turning in his kitchen, slipped and fell hitting his head on the stove a couple of days before. He was seen by his Home Health nurse who referred that he be assessed in the Emergency Room. In the Emergency Room, he was found to have a significant bradycardia in the low 40s with a high blood pressure difficult to control. He had a CT scan that showed no acute findings. His blood pressure was very elevated and required further stabilization. He was placed on Observation in the hospital because of the significant bradycardia and his significant symptoms and head injury for continued observation. LABORATORY: Hemoglobin 13.1 down to 11.7, white count normal, platelets normal. 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 Chemistry showed potassium 4.1, BUN 26 on discharge, creatinine of 0.82, glucose 94. Beta natriuretic peptide 160, troponin is 0.02. No urinalysis. X-RAY: CT scan of the head showed no acute findings. Chest x-ray was performed in the emergency room and showed no acute findings. HOSPITAL COURSE: The patient was feeling much improved on the morning of discharge. His pulse appeared to become faster and he was able to ambulate, and in fact was successful in performing an ambulation study with the use of a walker. Because of his very slow pulse, his telemetry was continued in the hospital and will also be observed after he goes home with a Holter monitor. PLAN: Continue with followup with this next week. Walk only with a walker or a quad cane. Special emphasis upon not falling. Keep his appointment this next with the dermatology clinic for cancer removal of the nose and possible skin grafting. Stop Coumadin starting today and begin again only when directed by the flight service specialist or . Wear the Holter EKG until a recording has been completed and return if not improving. Close followup with Dr. Salguero also encouraged. [facility][id number] [facility]
== END 2017-01-22 11:23 | disposition home or self-care (01) ==
LOC: ER 09:29 → MS 12:37
PROVIDERS: ADMIT Nurse Practitioner Acute Care; ATTEND Nurse Practitioner Acute Care
DX: F07.81 Postconcussional syndrome (principal); G44.309 Post-traumatic headache, unspecified, not intractable; R00.1 Bradycardia, unspecified; R53.1 Weakness; K59.09 Other constipation; I10 Essential (primary) hypertension; I48.91 Unspecified atrial fibrillation; N40.0 Benign prostatic hyperplasia without lower urinary tract symptoms; E78.5 Hyperlipidemia, unspecified; M81.0 Age-related osteoporosis without current pathological fracture; M06.9 Rheumatoid arthritis, unspecified; K76.0 Fatty (change of) liver, not elsewhere classified; I44.0 Atrioventricular block, first degree; W01.198A Fall on same level from slipping, tripping and stumbling with subsequent striking against other object, initial encounter; Z91.81 History of falling; Y92.000 Kitchen of unspecified non-institutional (private) residence as the place of occurrence of the external cause; Z79.01 Long term (current) use of anticoagulants; Z79.899 Other long term (current) drug therapy; Z86.73 Personal history of transient ischemic attack (TIA), and cerebral infarction without residual deficits; Z87.11 Personal history of peptic ulcer disease; Z87.442 Personal history of urinary calculi; Z87.891 Personal history of nicotine dependence; Z90.49 Acquired absence of other specified parts of digestive tract; Z80.42 Family history of malignant neoplasm of prostate; Z82.49 Family history of ischemic heart disease and other diseases of the circulatory system; Z83.3 Family history of diabetes mellitus
CPT/HCPCS: 36415 ×4; 70450; 71010; 80048 ×2; 80053; 82550; 82553; 83880; 84484; 85025 ×3; 85610 ×3; 85730; 93005; 93225; 94640 ×7; 94762 ×2; 96374; 96376 ×2; 99284; J7620 ×7

== ENCOUNTER → 2017-02-08 | Outpatient (CLI) | payer MEDICARE | END | disposition home or self-care (01) | LOC: NC 10:06 | PROVIDERS: ATTEND Family Medicine | DX: I48.91 Unspecified atrial fibrillation (principal) ==

== ENCOUNTER 2017-02-10 06:11 | Emergency (ER) | payer MEDICARE ==
[2017-02-10 06:31] VITALS: TEMP 98.9
--- NOTE | 2017-02-10 06:46 | ED.PDOC ---
History of Present Illness - General Source: patient Exam Limitations: no limitations - History of Present Illness Initial Comments: the patient is a 81-year-old male presenting to the emergency room secondary to falling at home this morning. He does have a history of multiple recurrent falls with the last giving him a significant concussion. He also has a history of significant bradycardia and hypertension. He reports this morning he was trying to get out of bed to his walker or he could get to the bathroom when his legs gave out on him. His legs have given out on him before. He does have significant ambulatory difficulties and generalized weakness. He is not reporting any particular new pain this morning. He is moving all his extremities well and gets gravity. He is alert and oriented and pleasant. On my initial exam at least he is not bradycardic. He did require help from the EMS to get up. He reports that this is not new either. He did not pass out. He did not become dizzy. There were no palpitations. No chest pain. No shortness of breath. He is simply too weak to get off the floor on his own. He was not on the floor for an extended period of time, probably less than 30 minutes according to him. Timing/Duration: 1/2 hour Severity: moderate Improving Factors: nothing Worsening Factors: nothing Associated Symptoms: malaise, weakness <Ketan Veras - Last Filed: 02/10/17 06:42> <Maria L Vargas - Last Filed: 02/10/17 08:06> - General Chief Complaint: General Stated Complaint: weakness Time Seen by Provider: 02/10/17 06:30 - History of Present Illness Allergies/Adverse Reactions: Allergies NO KNOWN ALLERGY Allergy (Verified 01/20/17 09:49) Home Medications: Ambulatory Orders Folic Acid 1 mg PO AM 12/25/13 Losartan Potassium 50 mg PO BID 12/25/13 Methotrexate Sodium [Methotrexate] 12.5 mg PO .QFRIDAYS 12/25/13 Terazosin [Hytrin] 10 mg PO BEDTIME 12/25/13 Warfarin Sodium 2.5 mg PO DAILY 12/25/13 Albuterol Sulfate Nebs [Proventil Nebs] 2.5 mg NEB QID PRN 02/17/16 Citalopram Hydrobromide [Celexa] 10 mg PO DAILY 02/17/16 Review of Systems - Review of Systems Constitutional: States: weakness EENTM: States: no symptoms reported Respiratory: States: no symptoms reported Cardiology: States: no symptoms reported Gastrointestinal/Abdominal: States: other - he had an episode of incontinence this morning due to his inability to get to the bathroom Genitourinary: States: no symptoms reported Musculoskeletal: States: other - he is having a little bit of pain between his shoulder blades but he thinks it was from sitting up all day yesterday at the doctor's office Skin: States: other - operative site to the nose appears to be healing appropriately but he was placed on a antibiotic yesterday for prophylactic measures Neurological: States: weakness - generalized Endocrine: States: intolerance to cold All other Systems: No Change from Baseline <Ketan Veras - Last Filed: 02/10/17 06:42> Past Medical History (General) - Patient Medical History Hx Seizures: No Hx Stroke: Yes - TIA Hx Asthma: No Hx of COPD: Yes Hx Cardiac Disorders: Yes - Atrial fib Hx Congestive Heart Failure: No Hx Pacemaker: No Hx Hypertension: Yes Hx Diabetes: No Hx MRSA: No - Vaccination History Hx Tetanus, Diphtheria Vaccination: Yes Hx Influenza Vaccination: Yes Hx Pneumococcal Vaccination: Yes - Social History Hx Tobacco Use: No Hx Chewing Tobacco Use: No Hx Alcohol Use: Yes - 3 yrs ago, social drinker Hx Substance Use: No Hx Substance Use Treatment: No Hx Depression: Yes Hx Physical Abuse: No Hx Emotional Abuse: No Hx Suspected Abuse: No <Ketan Veras - Last Filed: 02/10/17 06:42> Family Medical History - Family History Father Living Status: Cause of : prostate cancer Brother Family History: No Known Living Status: Hx Family Congestive Heart Failure: Yes Hx Family Hypertension: Yes Hx Cardiac Disease: Yes - CABG Hx Family;Other: Another sibling with DM and cardiac hx <Ketan Veras - Last Filed: 02/10/17 06:42> Physical Exam - Physical Exam General Appearance: Alert, Comfortable, No apparent distress Eye Exam: bilateral normal Ears, Nose, Throat: normal ENT inspection, normal pharynx Neck: full range of motion, supple Respiratory: chest non-tender, lungs clear, normal breath sounds, no respiratory distress, no accessory muscle use Cardiovascular/Chest: normal peripheral pulses, no edema, other - regular rate with my exam Peripheral Pulses: radial,right: 2+, radial,left: 2+, dorsalis pedis,right: 2+, dorsalis pedis,left: 2+ Gastrointestinal/Abdominal: non tender, soft Rectal Exam: deferred Extremity: normal range of motion, non-tender, normal inspection, no pedal edema , no calf tenderness, normal capillary refill Neurologic: alert, normal mood/affect, oriented x 3 DTR: 1+: Patellar, left, Patellar, right Skin Exam: normal color, other - operative site to the nose does not show significant evidence of infection at this time Comments: Vital Signs - 24 hr 02/10/17 06:27 Temperature 98.9 F Pulse Rate [ 94 H Left Radial] Respiratory 18 Rate Blood Pressure 106/63 [Left Arm] O2 Sat by Pulse 95 Oximetry <Ketan Veras - Last Filed: 02/10/17 06:42> Progress - Progress Progress: 02/10/17 07:26 Discussed lab results with patient and family. He has elevated cardiac enzymes and WBC count. Will get EKG and CXR. 02/10/17 07:48 Discussed patient with Hospitalist and Dr. Salguero (Career Consultant) who would like patient transferred to [facility] in [place]. Gave SLNTG for shoulder pain. Pain was 8/10 02/10/17 07:52 No change in his pain with 1 SLNTG - BP dropped to 72/50 so will hold further nitroglycerin. Will give 1gm of Tylenol. 02/10/17 08:04 Will give 1L NS bolus - Results/Orders Results/Orders: Laboratory Tests 02/10/17 02/10/17 06:20 06:45 WBC 18.2 H RBC 4.36 L Hgb 13.0 L Hct 40.8 L MCV 93.8 MCH 29.8 MCHC 31.9 L RDW 16.7 H Plt Count 162 MPV 10.4 Absolute Neuts (auto) 17.70 H Absolute Lymphs (auto) 0.10 L Absolute Monos (auto) 0.30 Absolute Eos (auto) 0.00 Absolute Basos (auto) 0.00 Neutrophils % 97.7 H Lymphocytes % 0.4 L Monocytes % 1.6 L Eosinophils % 0.2 L Basophils % 0.1 PT 27.6 H* INR 2.460 PTT (SP) 34.7 Sodium 140 Potassium 3.5 L Chloride 109 Carbon Dioxide 19 L Anion Gap 15.5 BUN 23 H Creatinine 1.20 BUN/Creatinine Ratio 19.2 Random Glucose 186 H Serum Osmolality 287.9 Calcium 8.7 Magnesium 1.6 L Total Bilirubin 0.4 Direct Bilirubin 0.1 Indirect Bilirubin 0.3 AST 38 ALT 19 Alkaline Phosphatase 92 Creatine Kinase 102 CK-MB (CK-2) 4.8 H* CK-MB (CK-2) % 4.71 H Troponin I 0.47 H* B-Natriuretic Peptide 221.0 H* Serum Total Protein 6.1 L Albumin 3.5 - EKG/XRAY/CT EKG: Atrial, Fibrillation, no ST T wave changes Comments: Rate 97 bpm XRAY: chest - Mild hyperinflation, o/w normal. No edema or infiltrate. <Maria L Vargas - Last Filed: 02/10/17 08:06> Departure <Ketan Veras - Last Filed: 02/10/17 06:42> - Departure Time of Disposition: 08:03 <Maria L Vargas - Last Filed: 02/10/17 08:06> - Departure Clinical Impression: Troponin level elevated, Near syncope Atrial fibrillation Qualifiers: Atrial fibrillation type: unspecified Qualifier Code: (I48.91) Unspecified atrial fibrillation Disposition: Transfer to Hospital Condition: Poor Departure Forms: ED Discharge - Pt. Copy, Patient Portal Self Enrollment Referrals: Magdy Jones MD [Primary Care Provider] - 1-2 Weeks Home Medications: Ambulatory Orders Folic Acid 1 mg PO AM 12/25/13 Losartan Potassium 50 mg PO BID 12/25/13 Methotrexate Sodium [Methotrexate] 12.5 mg PO .QFRIDAYS 12/25/13 Terazosin [Hytrin] 10 mg PO BEDTIME 12/25/13 Warfarin Sodium 2.5 mg PO DAILY 12/25/13 Albuterol Sulfate Nebs [Proventil Nebs] 2.5 mg NEB QID PRN 02/17/16 Citalopram Hydrobromide [Celexa] 10 mg PO DAILY 02/17/16 Transfer to Outside Facility - Transfer Information Accepting Provider:: Dr. Green Accepting Facility: [facility] - Spoke with Dr. Salguero(Career Consultant)- would like patient transfered to [place] <Maria L aVrgas - Last Filed: 02/10/17 08:06>
[2017-02-10 07:30] VITALS: O2SAT 96
[2017-02-10] MEDS ORDERED: NITROGLYCERIN 0.4 MG 25 EA TAB SL ONE ×2 (07:40)
--- NOTE | 2017-02-10 07:40 | RAD ---
EXAM DESCRIPTION: Chest,1 View CLINICAL HISTORY: malaise/elevated WBC's FINDINGS/ IMPRESSION: Comparison 01/20/2017 No edema, infiltrates or effusions. Mild hyperinflation Electronically signed by: Ashok Wilkerson MD 02/10/2017 7:39 AM CDT
[2017-02-10] MEDS ORDERED: ACETAMINOPHEN 500 MG TAB PO ONE ×2 (07:51)
[2017-02-10] MEDS ORDERED: SODIUM CHLORIDE 0.9% 1000ML 1,000 ML IVS ONE (07:56)
[2017-02-10 08:51] VITALS: BP 95/52
== END 2017-02-10 08:40 | disposition short-term general hospital (02) ==
LOC: ER 06:11
DX: I48.91 Unspecified atrial fibrillation (principal); R55 Syncope and collapse; R79.89 Other specified abnormal findings of blood chemistry; J44.9 Chronic obstructive pulmonary disease, unspecified; I10 Essential (primary) hypertension; Z86.73 Personal history of transient ischemic attack (TIA), and cerebral infarction without residual deficits; Z79.899 Other long term (current) drug therapy; Z80.42 Family history of malignant neoplasm of prostate; Z82.49 Family history of ischemic heart disease and other diseases of the circulatory system; Z79.01 Long term (current) use of anticoagulants; W19.XXXA Unspecified fall, initial encounter; Z91.81 History of falling; Y92.003 Bedroom of unspecified non-institutional (private) residence as the place of occurrence of the external cause
CPT/HCPCS: 36415; 71010; 80048; 80076; 82550; 82553; 83880; 84484; 85025; 85610; 85730; 93005; J7030

== ENCOUNTER → 2017-03-02 | Outpatient (CLI) | payer MEDICARE | LOC: NC 15:02 | PROVIDERS: ATTEND Family Medicine | DX: I48.91 Unspecified atrial fibrillation (principal); I10 Essential (primary) hypertension; J44.9 Chronic obstructive pulmonary disease, unspecified ==

== ENCOUNTER → 2017-03-06 | Outpatient (CLI) | payer MEDICARE | END | disposition home or self-care (01) | LOC: GMAJ 14:13 | PROVIDERS: ATTEND Family Medicine | DX: I48.91 Unspecified atrial fibrillation (principal) ==

== ENCOUNTER → 2017-03-10 | Outpatient (CLI) | payer MEDICARE | END | disposition home or self-care (01) | LOC: NC 10:32 | PROVIDERS: ATTEND Family Medicine | DX: I48.91 Unspecified atrial fibrillation (principal) ==

== ENCOUNTER 2017-03-17 14:25 | Emergency (ER) | payer MEDICARE ==
[2017-03-17] MEDS ORDERED: SODIUM CHLORIDE 0.9% 1000ML 1,000 ML IVS ONE (14:36)
--- NOTE | 2017-03-17 15:15 | RAD ---
EXAM DESCRIPTION: Chest,1 View CLINICAL HISTORY: orthostasis, recent mi/chf COMPARISON: February 10, 2017 IMPRESSION: Single AP portable upright view of the chest shows cardiac silhouette and pulmonary vasculature to be within normal limits. Calcifications of the thoracic aorta are seen. Lungs are mildly hyperinflated with chronic appearing increased interstitial markings. No acute infiltrate or consolidation is seen. Surgical clips in the epigastric and right upper quadrant abdomen region are seen. No obvious pleural effusion or pneumothorax is seen. Electronically signed by: Jon Way MD 03/17/2017 3:15 PM CDT
[2017-03-17] MEDS ORDERED: FLUCONAZOLE 100 MG TAB PO ONE (17:40)
[2017-03-17] MEDS ORDERED: cefTRIAXone SODIUM 1 GM in SODIUM CHL 0.9% 50ML MIN-BAG+ 50 ML IVPB ONE (18:17)
--- NOTE | 2017-03-17 18:20 | ED.PDOC ---
History of Present Illness - General Chief Complaint: General Time Seen by Provider: 03/17/17 14:29 Source: patient Exam Limitations: no limitations - History of Present Illness Initial Comments: the patient is an 81-year-old male presenting to the emergency room secondary to symptoms of orthostasis. He has been feeling weak and tired. He is recently out of rehabilitation from an episode of sepsis and congestive heart failure. He has been placed on a daily diuretic. He has been feeling like his mouth is dry and been getting dizzy when going to stand up. No palpitations. No syncope. No chest pain. No difficulty with urination. No abdominal pain. No cough or productive cough. Timing/Duration: 1 week Severity: moderate Improving Factors: nothing Worsening Factors: nothing Associated Symptoms: denies symptoms Allergies/Adverse Reactions: Allergies NO KNOWN ALLERGY Allergy (Verified 01/20/17 09:49) Home Medications: Ambulatory Orders Folic Acid 1 mg PO AM 12/25/13 Losartan Potassium 50 mg PO BID 12/25/13 Methotrexate Sodium [Methotrexate] 12.5 mg PO .QFRIDAYS 12/25/13 Terazosin [Hytrin] 10 mg PO BEDTIME 12/25/13 Warfarin Sodium 2.5 mg PO DAILY 12/25/13 Albuterol Sulfate Nebs [Proventil Nebs] 2.5 mg NEB QID PRN 02/17/16 Citalopram Hydrobromide [Celexa] 10 mg PO DAILY 02/17/16 Amoxicillin & Pot Clavulanate [Augmentin Tab] 875 mg PO BID #10 tab 03/17/17 Review of Systems - Review of Systems Constitutional: States: malaise, weakness EENTM: States: no symptoms reported Respiratory: States: no symptoms reported Cardiology: States: no symptoms reported Gastrointestinal/Abdominal: States: no symptoms reported Genitourinary: States: no symptoms reported Musculoskeletal: States: no symptoms reported Skin: States: no symptoms reported Neurological: States: other - dizziness Endocrine: States: no symptoms reported All other Systems: No Change from Baseline Past Medical History (General) - Patient Medical History Hx Seizures: No Hx Stroke: Yes - TIA Hx Asthma: No Hx of COPD: Yes Hx Cardiac Disorders: Yes - Atrial fib Hx Congestive Heart Failure: No Hx Pacemaker: No Hx Hypertension: Yes Hx Diabetes: No Hx MRSA: No - Vaccination History Hx Tetanus, Diphtheria Vaccination: Yes Hx Influenza Vaccination: Yes Hx Pneumococcal Vaccination: Yes - Social History Hx Tobacco Use: No Hx Chewing Tobacco Use: No Hx Alcohol Use: Yes - 3 yrs ago, social drinker Hx Substance Use: No Hx Substance Use Treatment: No Hx Depression: Yes Hx Physical Abuse: No Hx Emotional Abuse: No Hx Suspected Abuse: No Family Medical History - Family History Father Living Status: Cause of : prostate cancer Brother Family History: No Known Living Status: Hx Family Congestive Heart Failure: Yes Hx Family Hypertension: Yes Hx Cardiac Disease: Yes - CABG Hx Family;Other: Another sibling with DM and cardiac hx Physical Exam - Physical Exam General Appearance: Alert, Comfortable, No apparent distress Eye Exam: bilateral normal Ears, Nose, Throat: normal ENT inspection, normal pharynx - mucous membranes are mildly dry, other - chronic hearing decreased bilaterally. 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 Initially upon arrival his systolic blood pressure when lying flat is around 105. When standing it drops to 70. He does get dizzy with this. After his liter of IV fluids his systolic blood pressure lying flat is in the 140s and standing is around 100. He is significantly less dizzy. Progress - Progress Progress: 03/17/17 18:22 the patient is an 81-year-old male presenting to the emergency room secondary to symptoms of orthostasis. This is most likely due to the daily use of a diuretic. The patient has received a liter of IV fluids and symptoms have improved significantly. I recommended that he hold his diuretic over the weekend. He needs to see his primary care doctor early next week. He does have some yeast in his urine and has received 1 dose of oral Diflucan. Additionally he does have some mild leukocytosis that may be residual from his previous sepsis but is still above his baseline. Given his recent infection I' m going to place him on broad-spectrum antibiotic for the next 5 days. The patient is receiving a dose of IV Rocephin here. He will be placed on Augmentin twice daily for 5 days as an outpatient. He does need to follow-up with his primary care doctor early next week. He needs to return here for any acute worsening. He needs to ambulate carefully as dizziness can certainly still occur and he needs to prevent a fall. At this time I do not have a source for a significant infection. He does not appear to be septic. He is feeling significantly better after the fluids. - Results/Orders Results/Orders: 03/17/17 14:45 EKG STAT the patient has atrial fibrillation or possibly flutter with good rate control.no acute ST segment changes concerning for ischemia. 03/17/17 18:17 cefTRIAXone SODIUM [Rocephin] 1 gm Sodium Chl 0.9% 50Ml Min-Bag+ [NS 50ml MINI -BAG+] 50 ml IVPB ONCE Laboratory Results - last 24 hr 03/17/17 03/17/17 03/17/17 14:51 14:51 14:51 WBC 13.2 H RBC 4.36 L Hgb 13.0 L Hct 40.3 L MCV 92.3 MCH 29.8 MCHC 32.4 L RDW 17.6 H Plt Count 171 MPV 9.3 Absolute Neuts (auto) 10.20 H Absolute Lymphs (auto) 1.70 Absolute Monos (auto) 1.10 H Absolute Eos (auto) 0.20 Absolute Basos (auto) 0.10 Neutrophils % 77.6 Lymphocytes % 12.6 L Monocytes % 8.0 Eosinophils % 1.3 Basophils % 0.5 PT 11.7 INR 1.040 PTT (SP) 26.3 Sodium 137 Potassium 3.8 Chloride 106 Carbon Dioxide 25 Anion Gap 9.8 L BUN 41 H Creatinine 1.17 BUN/Creatinine Ratio 35.0 H Random Glucose 165 H Serum Osmolality 287.6 Calcium 8.8 Magnesium 2.1 Total Bilirubin 0.8 AST 25 ALT 27 Alkaline Phosphatase 103 Creatine Kinase 62 CK-MB (CK-2) 2.3 CK-MB (CK-2) % Not Reportable Troponin I 0.09 H* B-Natriuretic Peptide 206.0 H* Serum Total Protein 6.8 Albumin 3.7 Globulin 3.1 Albumin/Globulin Ratio 1.2 Urine Color Urine Appearance Urine pH Ur Specific [place] Urine Protein Urine Glucose (UA) Urine Ketones Urine Blood Urine Nitrite Urine Bilirubin Urine Urobilinogen Ur Leukocyte Esterase Urine RBC Urine WBC Ur Epithelial Cells Urine Bacteria Urine Yeast 03/17/17 17:06 WBC RBC Hgb Hct MCV MCH MCHC RDW Plt Count MPV Absolute Neuts (auto) Absolute Lymphs (auto) Absolute Monos (auto) Absolute Eos (auto) Absolute Basos (auto) Neutrophils % Lymphocytes % Monocytes % Eosinophils % Basophils % PT INR PTT (SP) Sodium Potassium Chloride Carbon Dioxide Anion Gap BUN Creatinine BUN/Creatinine Ratio Random Glucose Serum Osmolality Calcium Magnesium Total Bilirubin AST ALT Alkaline Phosphatase Creatine Kinase CK-MB (CK-2) CK-MB (CK-2) % Troponin I B-Natriuretic Peptide Serum Total Protein Albumin Globulin Albumin/Globulin Ratio Urine Color Yellow Urine Appearance Clear Urine pH 5.5 Ur Specific [place] 1.020 Urine Protein Negative Urine Glucose (UA) Negative Urine Ketones Negative Urine Blood Negative Urine Nitrite Negative Urine Bilirubin Negative Urine Urobilinogen 0.2 Ur Leukocyte Esterase Negative Urine RBC 0 Urine WBC 0-1 Ur Epithelial Cells 0 Urine Bacteria Rare Urine Yeast 2+ budding chest x-ray appears benign. Departure - Departure Clinical Impression: Orthostasis, Dehydration, moderate Disposition: Discharge to Home or Self Care Condition: Fair Departure Forms: ED Discharge - Pt. Copy, Patient Portal Self Enrollment Instructions: DI for Dehydration -- Adult Diet: regular diet Activity: increase activity as tolerated Referrals: Magdy Jones MD [Primary Care Provider] - 1-2 Weeks Prescriptions: Amoxicillin & Pot Clavulanate [Augmentin Tab] 875 mg PO BID #10 tab Home Medications: Ambulatory Orders Folic Acid 1 mg PO AM 12/25/13 Losartan Potassium 50 mg PO BID 12/25/13 Methotrexate Sodium [Methotrexate] 12.5 mg PO .QFRIDAYS 12/25/13 Terazosin [Hytrin] 10 mg PO BEDTIME 12/25/13 Warfarin Sodium 2.5 mg PO DAILY 12/25/13 Albuterol Sulfate Nebs [Proventil Nebs] 2.5 mg NEB QID PRN 02/17/16 Citalopram Hydrobromide [Celexa] 10 mg PO DAILY 02/17/16 Amoxicillin & Pot Clavulanate [Augmentin Tab] 875 mg PO BID #10 tab 03/17/17 Additional Instructions: the patient is an 81-year-old male presenting to the emergency room secondary to symptoms of orthostasis. This is most likely due to the daily use of a diuretic. The patient has received a liter of IV fluids and symptoms have improved significantly. I recommended that he hold his diuretic over the weekend. He needs to see his primary care doctor early next week. He does have some yeast in his urine and has received 1 dose of oral Diflucan. Additionally he does have some mild leukocytosis that may be residual from his previous sepsis but is still above his baseline. Given his recent infection I' m going to place him on broad-spectrum antibiotic for the next 5 days. The patient is receiving a dose of IV Rocephin here. He will be placed on Augmentin twice daily for 5 days as an outpatient. He does need to follow-up with his primary care doctor early next week. He needs to return here for any acute worsening. He needs to ambulate carefully as dizziness can certainly still occur and he needs to prevent a fall. At this time I do not have a source for a significant infection. He does not appear to be septic. He is feeling significantly better after the fluids. if orthostatic symptoms still persist after the patient is back well hydrated, then consideration of decreasing blood pressure medication should be taken. Daily weights should also be recorded by the patient.
[2017-03-17] MEDS ORDERED: cefTRIAXone SODIUM 1 GM VIAL ONE (18:31)
[2017-03-17] MEDS ORDERED: SODIUM CHL 0.9% 50ML MIN-BAG+ 50 ML IVPB ONE (18:32)
[2017-03-17 19:10] VITALS: TEMP 96.7
[2017-03-17 19:11] VITALS: BP 142/81; O2SAT 95
== END 2017-03-17 18:25 | disposition home or self-care (01) ==
LOC: ER 14:25
DX: E86.0 Dehydration (principal); R42 Dizziness and giddiness; I48.91 Unspecified atrial fibrillation; J44.9 Chronic obstructive pulmonary disease, unspecified; Z86.73 Personal history of transient ischemic attack (TIA), and cerebral infarction without residual deficits; I11.0 Hypertensive heart disease with heart failure; I50.9 Heart failure, unspecified; Z79.899 Other long term (current) drug therapy; Z79.01 Long term (current) use of anticoagulants; Z82.49 Family history of ischemic heart disease and other diseases of the circulatory system; Z80.42 Family history of malignant neoplasm of prostate
CPT/HCPCS: 36415; 71010; 80053; 81001; 82550; 82553; 83735; 83880; 84484; 85025; 85610; 85730; 93005; J0696; J7030; J7050

== ENCOUNTER → 2017-03-27 | Outpatient (CLI) | payer MEDICARE | END | disposition home or self-care (01) | LOC: NC 13:50 | PROVIDERS: ATTEND Family Medicine | DX: I48.91 Unspecified atrial fibrillation (principal) ==

== ENCOUNTER → 2017-04-03 | Outpatient (CLI) | payer MEDICARE | END | disposition home or self-care (01) | LOC: NC 12:22 | PROVIDERS: ATTEND Family Medicine | DX: I48.2 Chronic atrial fibrillation (principal) ==

== ENCOUNTER → 2017-04-10 | Outpatient (CLI) | payer MEDICARE | END | disposition home or self-care (01) | LOC: NC 13:47 | PROVIDERS: ATTEND Family Medicine | DX: I48.91 Unspecified atrial fibrillation (principal) ==

== ENCOUNTER → 2017-04-24 | Outpatient (CLI) | payer MEDICARE | END | disposition home or self-care (01) | LOC: NC 11:42 | PROVIDERS: ATTEND Family Medicine | DX: I48.91 Unspecified atrial fibrillation (principal) ==

== ENCOUNTER → 2017-05-29 | Outpatient (CLI) | payer MEDICARE | END | disposition home or self-care (01) | LOC: NC 12:21 | PROVIDERS: ATTEND Family Medicine | DX: I48.91 Unspecified atrial fibrillation (principal) ==

== ENCOUNTER → 2017-06-27 | Outpatient (CLI) | payer MEDICARE | END | disposition home or self-care (01) | LOC: NC 11:24 | PROVIDERS: ATTEND Family Medicine | DX: I48.2 Chronic atrial fibrillation (principal) ==

== ENCOUNTER → 2017-07-06 | Outpatient (CLI) | payer MEDICARE | END | disposition home or self-care (01) | LOC: GMAJ 10:42 | PROVIDERS: ATTEND Family Medicine | DX: I48.2 Chronic atrial fibrillation (principal); Z87.440 Personal history of urinary (tract) infections; R30.0 Dysuria ==

== ENCOUNTER → 2017-08-09 | Outpatient (CLI) | payer MEDICARE | END | disposition home or self-care (01) | LOC: NC 09:42 | PROVIDERS: ATTEND Family Medicine | DX: I48.2 Chronic atrial fibrillation (principal); I10 Essential (primary) hypertension ==

== ENCOUNTER → 2017-09-07 | Outpatient (CLI) | payer MEDICARE | END | disposition home or self-care (01) | LOC: ICH 15:00 | PROVIDERS: ATTEND Family Medicine | DX: I48.2 Chronic atrial fibrillation (principal) ==

== ENCOUNTER → 2017-09-08 | Outpatient (CLI) | payer MEDICARE | END | disposition home or self-care (01) | LOC: NC 09:57 | PROVIDERS: ATTEND Family Medicine | DX: I48.91 Unspecified atrial fibrillation (principal) ==

== ENCOUNTER → 2017-09-11 | Outpatient (CLI) | payer MEDICARE | END | disposition home or self-care (01) | LOC: NC 11:10 | PROVIDERS: ATTEND Family Medicine | DX: I48.91 Unspecified atrial fibrillation (principal) ==

== ENCOUNTER → 2017-09-18 | Outpatient (CLI) | payer MEDICARE | END | disposition home or self-care (01) | LOC: NC 11:34 | PROVIDERS: ATTEND Family Medicine | DX: I48.91 Unspecified atrial fibrillation (principal) ==

== ENCOUNTER → 2017-10-09 | Outpatient (CLI) | payer MEDICARE | END | disposition home or self-care (01) | LOC: NC 11:05 | PROVIDERS: ATTEND Family Medicine | DX: I48.91 Unspecified atrial fibrillation (principal) ==

== ENCOUNTER → 2017-11-06 | Outpatient (CLI) | payer MEDICARE | END | disposition home or self-care (01) | LOC: NC 13:00 | PROVIDERS: ATTEND Family Medicine | DX: I48.2 Chronic atrial fibrillation (principal) ==

== ENCOUNTER → 2017-11-16 | Outpatient (CLI) | payer MEDICARE | END | disposition home or self-care (01) | LOC: NC 12:38 | PROVIDERS: ATTEND Family Medicine | DX: I48.91 Unspecified atrial fibrillation (principal) ==

== ENCOUNTER → 2017-11-29 | Outpatient (CLI) | payer MEDICARE | END | disposition home or self-care (01) | LOC: NC 08:57 | PROVIDERS: ATTEND Family Medicine | DX: I48.2 Chronic atrial fibrillation (principal); I10 Essential (primary) hypertension; Z12.5 Encounter for screening for malignant neoplasm of prostate | CPT/HCPCS: 80053; 80061; 82550; 85025; G0103 ==

== ENCOUNTER → 2017-11-30 | Outpatient (CLI) | payer MEDICARE | END | disposition home or self-care (01) | LOC: GMAJ 14:43 | PROVIDERS: ATTEND Family Medicine | DX: N40.1 Benign prostatic hyperplasia with lower urinary tract symptoms (principal) ==

== ENCOUNTER → 2017-12-06 | Outpatient (CLI) | payer MEDICARE | END | disposition home or self-care (01) | LOC: NC 12:55 | PROVIDERS: ATTEND Family Medicine | DX: I48.91 Unspecified atrial fibrillation (principal) ==

== ENCOUNTER → 2017-12-18 | Outpatient (CLI) | payer MEDICARE | LOC: LAB.O 11:29 | PROVIDERS: ATTEND Family Medicine | DX: I48.91 Unspecified atrial fibrillation (principal) ==

== ENCOUNTER → 2018-01-16 | Outpatient (CLI) | payer MEDICARE | LOC: NC 11:39 | PROVIDERS: ATTEND Family Medicine | DX: I48.2 Chronic atrial fibrillation (principal) ==

== ENCOUNTER → 2018-02-13 | Outpatient (CLI) | payer MEDICARE | LOC: NC 14:30 | PROVIDERS: ATTEND Family Medicine | DX: I48.91 Unspecified atrial fibrillation (principal) ==

== ENCOUNTER → 2018-02-26 | Outpatient (CLI) | payer MEDICARE ==
--- NOTE | 2018-02-26 15:23 | MRI ---
Study: MRI of the brain. Indication: FOOT DROP,LEFT FOOT Technique: Multiplanar, multi sequence MRI of the brain obtained without intravenous contrast. Comparison: CT head January 20, 2017. Findings: No MRI evidence of acute ischemia, acute hemorrhage, mass, mass effect, midline shift, or extra-axial fluid collection. Ventricles are normal in configuration without hydrocephalus. Patchy elevated T2/FLAIR signal abnormality is seen within the periventricular and subcortical white matter. Although nonspecific, this finding is most consistent with chronic microvascular ischemic change. Global parenchymal volume loss noted as well. Scattered foci of millimetric susceptibility artifact noted throughout the supratentorial and infratentorial brain parenchyma on the gradient sequence indicating sites of remote microhemorrhage. Midline structures are intact. Paranasal sinuses are adequately aerated. Mastoid air cells are adequately aerated. Osseous structures and soft tissues demonstrate normal signal characteristics. Impression: No MRI evidence of acute intracranial abnormality. Senescent changes. Electronically signed by: Bari Wilhelm MD 02/26/2018 3:22 PM CDT
== END | disposition home or self-care (01) ==
LOC: MRI 13:54
PROVIDERS: ATTEND Family Medicine
DX: M21.372 Foot drop, left foot (principal)

== ENCOUNTER → 2018-03-12 | Outpatient (CLI) | payer MEDICARE | LOC: NC 11:59 | PROVIDERS: ATTEND Family Medicine | DX: I48.91 Unspecified atrial fibrillation (principal) ==

== ENCOUNTER → 2018-04-09 | Outpatient (CLI) | payer MEDICARE | LOC: NC 11:24 | PROVIDERS: ATTEND Family Medicine | DX: I48.91 Unspecified atrial fibrillation (principal) ==

== ENCOUNTER → 2018-05-01 | Outpatient (CLI) | payer MEDICARE | LOC: NC 12:38 | PROVIDERS: ATTEND Family Medicine | DX: I48.91 Unspecified atrial fibrillation (principal) ==

== ENCOUNTER 2018-05-09 12:11 | Inpatient (IN) | payer MEDICARE ==
--- NOTE | 2018-05-09 12:24 | ED.PDOC ---
History of Present Illness - General Chief Complaint: Problem Stated Complaint: right flank pain Time Seen by Provider: 05/09/18 12:24 Source: patient, family - History of Present Illness Initial Comments: Rajesh Cruz 82 y/o male admitted with right ureterolithiasis 05 May 2018 at [facility] by Dr. Cuenca and was sent home the following day but on arrival at home he had been throwing up could not keep anything down up to this time went to see primary Md advised to come here.No fever ,no chills Timing/Duration: constant Severity: moderate Worsening Factors: eating Associated Symptoms: nausea/vomiting Allergies/Adverse Reactions: Allergies NO KNOWN ALLERGY Allergy (Verified 03/17/17 19:04) Home Medications: Ambulatory Orders Folic Acid 1 mg PO AM 12/25/13 Losartan Potassium 50 mg PO BID 12/25/13 Methotrexate Sodium [Methotrexate] 12.5 mg PO .QFRIDAYS 12/25/13 Terazosin [Hytrin] 10 mg PO BEDTIME 12/25/13 Warfarin Sodium 2.5 mg PO DAILY 12/25/13 Albuterol Sulfate Nebs [Proventil Nebs] 2.5 mg NEB QID PRN 02/17/16 Citalopram Hydrobromide [Celexa] 10 mg PO DAILY 02/17/16 Amoxicillin & Pot Clavulanate [Augmentin Tab] 875 mg PO BID #10 tab 03/17/17 Review of Systems - Review of Systems Constitutional: States: no symptoms reported EENTM: States: no symptoms reported Respiratory: States: no symptoms reported Gastrointestinal/Abdominal: States: see HPI Genitourinary: States: see HPI Musculoskeletal: States: no symptoms reported Skin: States: no symptoms reported Neurological: States: no symptoms reported Past Medical History (General) - Patient Medical History Hx Seizures: No Hx Stroke: Yes - TIA Hx Asthma: No Hx of COPD: Yes Hx Cardiac Disorders: Yes - Atrial fib Hx Congestive Heart Failure: No Hx Pacemaker: No Hx Hypertension: Yes Hx Diabetes: No Hx MRSA: No Surgical History: cholecystectomy, gastric bypass, other - vasectomy - Vaccination History Hx Tetanus, Diphtheria Vaccination: Yes Hx Influenza Vaccination: Yes Hx Pneumococcal Vaccination: Yes - Social History Hx Tobacco Use: No Hx Chewing Tobacco Use: No Hx Alcohol Use: Yes - 3 yrs ago, social drinker Hx Substance Use: No Hx Substance Use Treatment: No Hx Depression: Yes Hx Physical Abuse: No Hx Emotional Abuse: No Hx Suspected Abuse: No - Activities of Daily Living Grooming Ability: Independent Eating (Feeding) Ability: Independent Toileting Ability: Independent Family Medical History - Family History Father Living Status: Cause of : prostate cancer Hx Family;Other: kidney stone multiple family members Brother Family History: No Known Living Status: Hx Family Congestive Heart Failure: Yes Hx Family Hypertension: Yes Hx Cardiac Disease: Yes - CABG Hx Family;Other: Another sibling with DM and cardiac hx Physical Exam - Physical Exam General Appearance: Alert, Comfortable, No apparent distress Eye Exam: bilateral normal Ears, Nose, Throat: hearing grossly normal, normal ENT inspection Neck: full range of motion, supple Respiratory: lungs clear, normal breath sounds Cardiovascular/Chest: normal peripheral pulses, no gallop, no murmur, irregularly irregular Peripheral Pulses: radial,right: 2+, radial,left: 2+ Gastrointestinal/Abdominal: non tender, soft, no organomegaly Back Exam: no CVA tenderness, no vertebral tenderness Extremity: no pedal edema, no calf tenderness Neurologic: alert, oriented x 3 Skin Exam: normal color, warm/dry Lymphatic: no adenopathy Progress - Progress Progress: 05/09/18 12:59 Vital Signs - 8 hr 05/09/18 12:26 Temperature 97.4 F L Pulse Rate [ 75 right brachial] Respiratory 16 Rate Blood Pressure 191/99 [right brachial ] O2 Sat by Pulse 96 Oximetry 05/09/18 14:21 D/W Dr. Cuenca-Urologist stated may be admitted here for ivf hydration,pain control,anti emetics has foolow up Monday - Results/Orders Results/Orders: 05/09/18 12:24 IV Care:Saline Lock per Protoc QSHIFT 05/09/18 12:26 Sodium Chloride 0.9% 1000ML [Ns 1000 ml] 1,000 ml IVS .QD 05/09/18 12:30 EKG STAT Laboratory Results - last 24 hr 05/09/18 05/09/18 05/09/18 12:30 12:30 13:40 WBC 14.7 H RBC 4.76 Hgb 13.5 L Hct 41.8 L MCV 88.0 MCH 28.3 MCHC 32.3 L RDW 20.4 H Plt Count 194 MPV 9.6 Absolute Neuts (auto) 12.70 H Absolute Lymphs (auto) 0.80 L Absolute Monos (auto) 1.10 H Absolute Eos (auto) 0.00 Absolute Basos (auto) 0.00 Neutrophils % 86.6 H Lymphocytes % 5.6 L Monocytes % 7.5 Eosinophils % 0.0 L Basophils % 0.3 PT 11.8 H INR 1.19 H PTT (SP) 26.6 Sodium 138 Potassium 4.0 Chloride 103 Carbon Dioxide 27 Anion Gap 12.0 BUN 21 H Creatinine 1.17 BUN/Creatinine Ratio 17.9 Random Glucose 127 H Serum Osmolality 280.2 Lactic Acid 1.8 Calcium 9.0 Magnesium 1.9 Total Bilirubin 0.9 Direct Bilirubin 0.2 Indirect Bilirubin 0.7 AST 29 ALT 16 Alkaline Phosphatase 120 Creatine Kinase 256 H* CK-MB (CK-2) 1.5 CK-MB (CK-2) % Not Reportable Troponin I 0.03 Serum Total Protein 8.0 Albumin 4.4 Lipase 15 L Urine Color Yellow Urine Appearance Sl cloudy Urine pH 5.5 Ur Specific [place] 1.020 Urine Protein Trace Urine Glucose (UA) Negative Urine Ketones 15 H Urine Blood Moderate H Urine Nitrite Negative Urine Bilirubin Negative Urine Urobilinogen 0.2 Ur Leukocyte Esterase Negative Urine RBC >50 H Urine WBC 3-5 H Ur Epithelial Cells 0-1 Amorphous Sediment 1+ Urine Bacteria Rare Urine Yeast 4+ budding - EKG/XRAY/CT EKG: Atrial, Fibrillation Comments: HR -67 CT Ordered: Yes - abd/p-5 mm proximal ureteral stone right Departure - Departure Clinical Impression: Ureteral calculus, right, History of atrial fibrillation, Long-term (current) use of anticoagulants Nausea & vomiting Qualifiers: Vomiting type: unspecified Vomiting Intractability: non-intractable Qualified Code(s): R11.2 - Nausea with vomiting, unspecified Time of Disposition: 14:20 Disposition: Admit Patient Condition: Fair Departure Forms: Patient Portal Self Enrollment Referrals: Magdy Jones MD [Primary Care Provider] - 1-2 Weeks Home Medications: Ambulatory Orders Folic Acid 1 mg PO AM 12/25/13 Losartan Potassium 50 mg PO BID 12/25/13 Methotrexate Sodium [Methotrexate] 12.5 mg PO .QFRIDAYS 12/25/13 Terazosin [Hytrin] 10 mg PO BEDTIME 12/25/13 Warfarin Sodium 2.5 mg PO DAILY 12/25/13 Albuterol Sulfate Nebs [Proventil Nebs] 2.5 mg NEB QID PRN 02/17/16 Citalopram Hydrobromide [Celexa] 10 mg PO DAILY 02/17/16 Amoxicillin & Pot Clavulanate [Augmentin Tab] 875 mg PO BID #10 tab 03/17/17 Decision To Admit - Decistion To Admit Decision to Admit Reason: Admit from ER Decision to Admit Date: 05/09/18 - D/W susan Muller-ANP/Hospitalist Decision to Admit Time: 14:19
[2018-05-09] MEDS ORDERED: SODIUM CHLORIDE 0.9% 1000ML 1,000 ML IVS PRN (12:26)
--- NOTE | 2018-05-09 12:58 | RAD ---
EXAM DESCRIPTION: Chest,1 View CLINICAL HISTORY: nausea/vomiting COMPARISON: March 17, 2017 IMPRESSION: Single AP portable upright view of the chest shows mild enlargement of the cardiomediastinal silhouette probably secondary to tortuosity of the thoracic aorta. Lungs are normally aerated and clear. No obvious pleural effusion or pneumothorax is seen. Electronically signed by: Jon Way MD 05/09/2018 12:57 PM CDT
--- NOTE | 2018-05-09 13:00 | CT ---
EXAM DESCRIPTION: Abdoment/Pelvis w/o Contrast CLINICAL HISTORY: right flank pain COMPARISON: December 07, 2016 TECHNIQUE: CT of the abdomen and Pelvis was performed without IV contrast. This exam was performed according to our departmental dose-optimization program, which includes automated exposure control, adjustment of the mA and/or kV according to patient size and/or use of iterative reconstruction technique. FINDINGS: There is a 5 mm calculus in the proximal third of the right ureter resulting in mild right-sided hydroureteronephrosis. There are additional tiny nonobstructing right renal calculi. Renal vascular calcifications are noted bilaterally. No left ureteral calculus or left-sided hydronephrosis. No bladder calcification or bladder wall thickening. Perinephric inflammation is noted bilaterally, probably chronic on the left side. This appears worse from the prior exam in the right side. The gallbladder is surgically absent. Pancreatic calcifications are noted suggestive of chronic or remote pancreatitis. Mural calcifications are present in the abdominal aorta and its major branches. No dilated small bowel loops. The liver, spleen and adrenals are unremarkable for noncontrast technique. Moderate amount of stool and gas content of the colon without colonic wall thickening or pericolonic inflammation. Tiny amount of free low-density fluid in the pelvis. No adenopathy or additional ascites. Postoperative changes in the left hip. No acute bone lesion. Degenerative changes in the lumbar spine. IMPRESSION: 5 mm calculus proximal third right ureter resulting in mild right-sided hydroureteronephrosis. Urologic consultation is recommended. Correlation with urinalysis is recommended to exclude the possibility of urinary tract infection. Atherosclerotic vascular disease and other nonacute findings as detailed above. Electronically signed by: Nabil Miller MD 05/09/2018 12:59 PM CDT
[2018-05-09] MEDS ORDERED: hydrALAZINE HCl 20 MG/ML VIAL IV ONE (13:21)
[2018-05-09] MEDS: TAMSULOSIN 0.4 MG CAP PO ONE ×2 (13:40→13:48)
--- NOTE | 2018-05-09 15:30 | HP ---
SUPERVISING PHYSICIAN: Magdy Jones M.D. CHIEF COMPLAINT: Right flank pain. HISTORY OF PRESENT ILLNESS: This is an 82 year-old male patient with a known right kidney stone which was diagnosed back on the 05 of May at [facility]. At that point the stone was quite proximal and he was treated with Flomax and IV fluids, but then sent home the next day. However, upon arrival at home he started to throw up and has really not been able to keep a whole lot of food down. He went to see his primary care physician who then referred him to the Emergency Room. Dr. Lee in the Emergency Room evaluated the patient and repeated his CAT scan. The CT showed a 5 mm proximal ureteral stone on the right with a mild hydronephrosis. There was no sign of overt infectious process. Dr. Lee in the Emergency Room called Dr. Shipley who recommended IV hydration and started Flomax. He was given Flomax in the Emergency Room as well as given some IV fluids. He was referred for admission for those reasons. At time of examination, the patient was without distress. He does not complain of any pain currently. His family states that he has not eaten much and the patient is very frail. PAST MEDICAL HISTORY: 1. Atrial fibrillation. 2. Benign prostatic hypertrophy. 3. Hyperlipidemia. 4. Hypertension. 5. Peptic ulcer disease. 6. Cardiovascular disease. 7. Diverticulosis. 8. Kidney stones in the past. 9. Osteoporosis. 10. Rheumatoid arthritis. 11. Transient ischemic attack. 12. Vertigo. 13. Chronic obstructive pulmonary disease. 14. Depression. 15. Osteoarthritis. PAST SURGICAL HISTORY: 1. Cholecystectomy. 2. Left hip fracture repair. 3. Vagotomy and pyloroplasty. 4. Colonoscopy. CURRENT MEDICATIONS: 1. He has recently been placed on Flomax 0.4 mg daily. 2. Albuterol 2.5 nebulized q.i.d. p.r.n. 3. Atorvastatin 40 mg p.o. at bedtime. 4. Citalopram 10 mg p.o. daily. 5. Folic acid 1 mg p.o. every AM. 6. Losartan 50 mg p.o. b.i.d. 7. Methotrexate 12.5 mg every Monday. 8. Terazosin 10 mg p.o. at bedtime. 9. Warfarin 2.5 mg daily. ALLERGIES: NO KNOWN DRUG ALLERGIES. FAMILY HISTORY: Father of prostate cancer. Mother of congestive heart failure. SOCIAL HISTORY: The patient has a distant history of smoking but quit 6 years ago. He socially drinks alcohol. No illicit drugs. He is and has 3 children. REVIEW OF SYSTEMS: CONSTITUTIONAL: No fever or chills. No recent weight loss or weight gain. HEENT: No headaches, vision changes, ear pain, nasal congestion or throat pain. RESPIRATORY: No cough, hemoptysis or pleuritic chest pain. CARDIOVASCULAR: No chest pain, palpitations or peripheral edema. GASTROINTESTINAL: Positive for nausea and vomiting. No diarrhea. No constipation. GENITOURINARY: Positive for the kidney stone. No dysuria. Positive for flank pain. HEMATOLOGIC: Positive for easy bruising. No transfusion reaction. ENDOCRINE: No polydipsia, polyuria or polyphagia. No heat or cold intolerance. MUSCULOSKELETAL: Positive for joint pain. No joint swelling or muscle cramps. NEUROLOGIC: No paresthesias, syncope or seizures. PHYSICAL EXAMINATION: VITAL SIGNS: Blood pressure 155/77, heart rate 76, respiratory rate 18, temperature 97.7, oxygen saturation 96%. GENERAL: Mr. Cruz is an 82 year-old male patient quite frail in appearance, but in no active distress at this time. HEENT: Normocephalic and atraumatic. EYES: Pupils are equal and reactive. NOSE: No drainage. THROAT: With slightly dry mucosa. NECK: Supple. Midline trachea. No jugular venous distention. CHEST: Symmetrical with equal rise and fall of the chest with inspiration and expiration. Lung sound are clear to auscultation bilaterally. CARDIOVASCULAR: Regular rate and rhythm. Normal S1 and S2. ABDOMEN: Soft. Positive bowel sounds. Does have some right flank pain to palpation. GENITOURINARY: Exam is deferred. EXTREMITIES: Lower extremities have no edema. Pulses are 2+. Capillary refill is less than 2 seconds. NEUROLOGIC: The patient is alert and oriented. Moves all extremities. Extraocular movements are intact. LABORATORY: White count 14.7, hemoglobin 13.5, hematocrit 41.8, platelet count 194. INR is 1.19. Chemistries are pretty much unremarkable but does show a normal white count at 1.8. UA with 15 ketones but he has not been eating either. RBCs greater than 50, urine WBCs 3 to 5. ASSESSMENT: 1. Right proximal ureteral stone with leukocytosis. Cannot completely rule out pyelonephritis. 2. Dehydration. 3. Hypertension. 4. Rheumatoid arthritis on immunosuppressant therapy. 5. Paroxysmal atrial fibrillation on Warfarin with subtherapeutic INR. 6. History of peptic ulcer disease. PLAN: 1. At this point, I will provide hydration and restart the Flomax. Will strain the urine and hopefully will mobilize the stone and completely pass it. Will provide pain control and nausea medications while he is here. Will start him off on a clear liquid diet and advance as tolerated. 2. I have started him on IV fluids due to the dehydration. Will continue to monitor it as well. 3. I am going to go ahead and restart his home medications. His blood pressure is a little bit on the high side, but not so high that he needs any additional medications at this time. Consider that he is on Methotrexate. He is immunocompromised and so I started him on some antibiotics with Rocephin b.i.d. I have chosen this as opposed to Cipro due to the fact he is on Warfarin and there could be quite a bit of interaction. I have restarted his Warfarin as well. He has a subtherapeutic INR and I am hoping that this will improve throughout his stay here. I will go ahead and start him on GI ulcer prophylaxis as well given the fact he is acutely ill and does have a history of peptic ulcer disease. #[id number] [facility]
[2018-05-09] MEDS ORDERED: ONDANSETRON INJ 4 MG/2 ML VIAL IV PRN (17:13)
[2018-05-09] MEDS ORDERED: SODIUM CHLORIDE 0.9% (FLUSH) 10 ML SYG IV PRN (17:13)
[2018-05-09] MEDS ORDERED: SODIUM CHL 0.9% 50ML MIN-BAG+ 50 ML IVPB ONE ×2 (17:26→19:45)
[2018-05-09] MEDS ORDERED: cefTRIAXone SODIUM 1 GM VIAL ONE ×2 (17:27→19:46)
[2018-05-09] MEDS ORDERED: ENOXAPARIN SODIUM 40 MG/0.4 ML SYG SUBCU SCH (17:30)
[2018-05-09] MEDS: SODIUM CHLORIDE 0.9% 1000ML 1,000 ML IVS PRN (17:31)
[2018-05-09] MEDS: cefTRIAXone SODIUM 1 GM in SODIUM CHL 0.9% 50ML MIN-BAG+ 50 ML IVPB SCH (17:33)
[2018-05-09] MEDS: IV SET AND CAP CHANGE INJ INJ SCH (17:36)
[2018-05-09] MEDS ORDERED: ALBUTEROL SULFATE 2.5 MG/3 ML VIAL NEB PRN (18:26)
[2018-05-09] MEDS ORDERED: ATORVASTATIN 20 MG TAB PO ONE (19:45)
[2018-05-09] MEDS ORDERED: LOSARTAN POTASSIUM 25 MG TAB ONE (20:15)
[2018-05-09] MEDS: TERAZOSIN 5 MG CAP PO SCH (20:32)
[2018-05-09] MEDS ORDERED: NON-FORMULARY MEDICATION 1 EA MIS (Losartan Potassium [Losartan Potassium] 50 MG) PO SCH (21:00)
[2018-05-09] MEDS ORDERED: NON-FORMULARY MEDICATION 1 EA MIS (Atorvastatin Calcium [Lipitor] 40 MG) PO SCH (21:00)
[2018-05-09] MEDS: MORPHINE SULFATE INJ 10 MG/ML VIAL IV PRN (21:04)
[2018-05-10] MEDS: SODIUM CHLORIDE 0.9% 1000ML 1,000 ML IVS PRN ×2 (04:01→13:44)
[2018-05-10] MEDS: cefTRIAXone SODIUM 1 GM in SODIUM CHL 0.9% 50ML MIN-BAG+ 50 ML IVPB SCH ×2 (05:09→17:21)
[2018-05-10] MEDS: OMEPRAZOLE CAP 20 MG CAP PO SCH (06:01)
[2018-05-10] MEDS ORDERED: WARFARIN SODIUM 2.5 MG TAB ONE (07:29)
[2018-05-10] MEDS ORDERED: LOSARTAN POTASSIUM 25 MG TAB ONE (07:29)
[2018-05-10] MEDS: LOSARTAN POTASSIUM 25 MG TAB PO SCH ×2 (08:46→21:02)
[2018-05-10] MEDS: FOLIC ACID 1 MG TAB PO SCH (08:47)
[2018-05-10] MEDS: TAMSULOSIN 0.4 MG CAP PO SCH (08:47)
[2018-05-10] MEDS: CITALOPRAM HBR 20 MG TAB PO SCH (08:56)
[2018-05-10] MEDS ORDERED: WARFARIN SODIUM 3 MG TAB PO SCH (09:00)
--- NOTE | 2018-05-10 11:27 | PN ---
SUPERVISING PHYSICIAN: Magdy Jones MD DATE: 05/10/18 SUBJECTIVE: The patient states he feels better than he did yesterday. He has been urinating quite a bit, but does not note he has passed any stones and the nurse states they have been straining his urine and have not noticed any stones. He did have some pain last night and required some morphine, but has not had any pain since. OBJECTIVE: VITAL SIGNS: Blood pressure 154/65. Heart rate 58. Respiratory rate 16. Temperature 98.1. Oxygen saturation 94%. GENERAL: Mr. Cruz is an 82-year-old male patient in no distress. NEUROLOGIC: Alert and oriented. LUNGS: Clear to auscultation bilaterally. CARDIOVASCULAR: Regular rate and rhythm. ABDOMEN: Soft. Positive bowel sounds. GENITOURINARY: Deferred. EXTREMITIES: Lower extremities with no edema. Pulses 2+. Capillary refill is less than 2 seconds. LABORATORY: He did show improvement in white count to 7.5, hemoglobin 11.0, hematocrit 34.0, platelet count 164. There is no longer any left shift. INR 1.25. Chemistry shows resolution of elevated BUN. It is now 18 from 21. Otherwise, unremarkable chemistry. ASSESSMENT: 1. Right proximal ureteral stone with leukocytosis and likely pyelonephritis. 2. Dehydration. 3. Hypertension. 4. Rheumatoid arthritis on immunosuppressant therapy. 5. Paroxysmal atrial fibrillation on warfarin therapy with subtherapeutic INR. 6. History of peptic ulcer disease. PLAN: We will continue the hydration with the Flomax. We will continue to strain the urine and hopefully we will have some success with passing the stone. He states he does have improvement in his appetite, so I will start him back on a regular diet at this point. Continue to monitor cultures and adjust antibiotics accordingly. With the improvement in the white count, we will continue the current antibiotic therapy with Rocephin. #[id number] [facility]
[2018-05-10] MEDS ORDERED: WARFARIN SODIUM 2.5 MG TAB PO SCH (12:00)
[2018-05-10] MEDS: traMADol HCL 50 MG TAB PO PRN ×2 (13:22→20:35)
[2018-05-10] MEDS ORDERED: cefTRIAXone SODIUM 1 GM VIAL ONE (17:01)
[2018-05-10] MEDS ORDERED: SODIUM CHL 0.9% 50ML MIN-BAG+ 50 ML IVPB ONE (17:01)
[2018-05-10] MEDS: TERAZOSIN 5 MG CAP PO SCH (21:00)
[2018-05-10] MEDS: ATORVASTATIN 20 MG TAB PO SCH (21:02)
[2018-05-10] MEDS: ENOXAPARIN SODIUM 40 MG/0.4 ML SYG SUBCU SCH (21:03)
[2018-05-11] MEDS: SODIUM CHLORIDE 0.9% 1000ML 1,000 ML IVS PRN ×3 (00:26→20:58)
[2018-05-11] MEDS ORDERED: cefTRIAXone SODIUM 1 GM VIAL ONE ×3 (04:43→20:08)
[2018-05-11] MEDS ORDERED: SODIUM CHL 0.9% 50ML MIN-BAG+ 50 ML IVPB ONE ×3 (04:43→20:07)
[2018-05-11] MEDS: cefTRIAXone SODIUM 1 GM in SODIUM CHL 0.9% 50ML MIN-BAG+ 50 ML IVPB SCH ×2 (05:12→17:23)
[2018-05-11] MEDS: OMEPRAZOLE CAP 20 MG CAP PO SCH (06:06)
[2018-05-11] MEDS: traMADol HCL 50 MG TAB PO PRN ×2 (06:17→09:53)
[2018-05-11] MEDS: FOLIC ACID 1 MG TAB PO SCH (08:48)
[2018-05-11] MEDS: TAMSULOSIN 0.4 MG CAP PO SCH (08:48)
[2018-05-11] MEDS: LOSARTAN POTASSIUM 25 MG TAB PO SCH ×2 (08:49→20:59)
[2018-05-11] MEDS: CITALOPRAM HBR 20 MG TAB PO SCH (08:49)
[2018-05-11] MEDS ORDERED: METHOTREXATE SODIUM 12.5 MG PO SCH (09:00)
[2018-05-11] MEDS: MAGNESIUM HYDROXIDE 30 ML UD PO SCH (10:45)
[2018-05-11] MEDS: MORPHINE SULFATE INJ 10 MG/ML VIAL IV PRN (10:58)
--- NOTE | 2018-05-11 11:15 | PN ---
SUPERVISING PHYSICIAN: Magdy Jones MD DATE: 05/11/18 SUBJECTIVE: The patient did have a little bit of pain last night after he ate. It is still right flank pain which wraps around into the groin area which has not really changed much since he has been here. He has really not required a whole lot of pain medicine, so he has not had any since last night. Appetite is still a little bit decreased. There is concern for him not taking p.o. when he gets home. OBJECTIVE: VITAL SIGNS: Blood pressure 170/82. Heart rate 68. Respiratory rate 18. Temperature 98.2. Oxygen saturation 92%. GENERAL: Mr. Cruz is an 82-year-old male patient in no distress currently. NEUROLOGIC: Alert and oriented. LUNGS: A little diminished at the bases, but otherwise clear to auscultation bilaterally. CARDIOVASCULAR: Regular rate and rhythm. Normal S1, S2. ABDOMEN: Soft. Positive bowel sounds. He does have a little bit of right flank discomfort with percussion. GENITOURINARY: Deferred. EXTREMITIES: Extremities with no edema. Pulses 2+. Capillary refill is less than 2 seconds. LABORATORY: Repeat labs were done which show a normal white count of 8.4, hemoglobin 11.4, hematocrit 35.5, platelet count 182. INR 1.28. This is still subtherapeutic. Chemistry is pretty much unremarkable at this time. ASSESSMENT: 1. Right proximal ureteral stone with improved leukocytosis with concern for pyelonephritis. 2. Dehydration, improving. 3. Hypertension. 4. Rheumatoid arthritis on immunosuppressant therapy. 5. Paroxysmal atrial fibrillation with subtherapeutic INR. 6. History of peptic ulcer disease. PLAN: We will continue the hydration with the Flomax. He has not passed a stone with any of the urine which is being strained. He is tolerating his p.o. diet fairly well, but really still not eating a whole lot. Continue to monitor cultures. I am going to increase his warfarin as his INR is still subtherapeutic. I discussed with his via telephone as well. My main concern is that if he goes home now, he will not take p.o. fluids as he should to continue to try to flush this stone out. He seems to decompensate fairly quickly once his fluids have been stopped and he does not take p.o. very well. Therefore, I am going to keep him here on the IV antibiotics, fluids and pain control as well as antiemetics p.r.n. so that we can further try to facilitate passing of the stone. He does have an appointment with Dr. Hammond Monday so I feel like he can probably go home tomorrow or Monday so that he can make that appointment. #[id number] [facility]
[2018-05-11] MEDS ORDERED: WARFARIN SODIUM 2 MG TAB PO SCH (12:00)
[2018-05-11] MEDS ORDERED: MORPHINE SULFATE INJ 10 MG/ML VIAL IV ONE (13:48)
[2018-05-11] MEDS: ENOXAPARIN SODIUM 40 MG/0.4 ML SYG SUBCU SCH (20:59)
[2018-05-11] MEDS: MELATONIN 3 MG TAB PO SCH (20:59)
[2018-05-11] MEDS: ATORVASTATIN 20 MG TAB PO SCH (20:59)
[2018-05-12] MEDS: cefTRIAXone SODIUM 1 GM in SODIUM CHL 0.9% 50ML MIN-BAG+ 50 ML IVPB SCH ×2 (05:38→17:36)
[2018-05-12] MEDS: SODIUM CHLORIDE 0.9% 1000ML 1,000 ML IVS PRN ×2 (05:42→17:41)
[2018-05-12] MEDS: OMEPRAZOLE CAP 20 MG CAP PO SCH (06:10)
[2018-05-12] MEDS: CITALOPRAM HBR 20 MG TAB PO SCH (08:20)
[2018-05-12] MEDS: FOLIC ACID 1 MG TAB PO SCH (08:20)
[2018-05-12] MEDS: TAMSULOSIN 0.4 MG CAP PO SCH (08:20)
[2018-05-12] MEDS: MAGNESIUM HYDROXIDE 30 ML UD PO SCH (08:20)
[2018-05-12] MEDS: LOSARTAN POTASSIUM 25 MG TAB PO SCH ×2 (08:21→20:40)
[2018-05-12] MEDS ORDERED: WARFARIN SODIUM 5 MG TAB PO SCH (12:00)
[2018-05-12] MEDS ORDERED: FLUCONAZOLE 100 MG TAB PO ONE (13:06)
[2018-05-12] MEDS ORDERED: FLUCONAZOLE 150 MG TAB ONE (15:56)
[2018-05-12] MEDS ORDERED: FLUCONAZOLE 100 MG TAB ONE (15:58)
--- NOTE | 2018-05-12 16:42 | PN ---
DATE: 05/12/18 SUPERVISING PHYSICIAN: Chalo Healy M.D. SUBJECTIVE: The patient said he has not had any pain since last night. He did go take a shower today and has ambulated. He remains afebrile. OBJECTIVE: VITAL SIGNS: Temperature 98.9, pulse 57, blood pressure 176/89, respirations 18, satting 92% on room air. CHEST: Lungs were clear to auscultation. HEART: Slightly irregular rate and rhythm. ABDOMEN: Soft, non- tender. Positive bowel sounds. EXTREMITIES: No clubbing, cyanosis or edema. NEUROLOGIC: He is alert and oriented times three. LABORATORY: White count today is slightly elevated compared to previous days at 11,100, hemoglobin and hematocrit show to be stable at 12.2 and 37.7 with platelet count 198,000. Differential today does show a left shift. Coagulation : PT still remains subtherapeutic at 1.44 with PTT of 16.6. Chemistries: All electrolytes are within normal limits. Calcium 7.8. MICROBIOLOGY: Urine culture showed a yeast species greater than 100,000 colony- forming units per mL. RADIOLOGY: No additional radiographic studies were submitted today. ASSESSMENT: 1. Right proximal ureteral stone with improving symptoms with final culture results showing a yeast species of greater than 100,000 colony-forming units per mL with the patient having started on Diflucan. 2. Dehydration, improving with fluids. 3. Hypertension. 4. Rheumatoid arthritis on immunosuppressant therapy putting the patient at risk for super infections with again concerns for a possible pyelonephritis given the colony count of yeast on final culture results. 5. Paroxysmal atrial fibrillation with a continued subtherapeutic INR with continuation of Lovenox awaiting therapeutic levels with Coumadin dosing being managed daily. 6. History of peptic ulcer disease. PLAN: Will continue with IV fluids and Flomax as well as Diflucan given the final culture results. He notes that he has not had any pain in his right quadrant but has not yet noted that he had passed a stone and will continue to strain his urine. Will continue current oral intake and nutritional status. I will go ahead and increase his Warfarin again today and check his PT in the morning. His was present today and will discuss, as he continues to show good improvement, going home tomorrow to have follow appointment on Monday with Dr. Mushtaghi. He continues on IV antibiotics to include Rocephin. Will continue to monitor and treat until clinically stable and able to discharge home. #[id number] [facility]
[2018-05-12] MEDS ORDERED: SODIUM CHL 0.9% 50ML MIN-BAG+ 50 ML IVPB ONE ×2 (17:05→19:17)
[2018-05-12] MEDS ORDERED: cefTRIAXone SODIUM 1 GM VIAL ONE ×2 (17:06→19:18)
[2018-05-12] MEDS: IV SET AND CAP CHANGE INJ INJ SCH (17:49)
[2018-05-12] MEDS: MELATONIN 3 MG TAB PO SCH (20:40)
[2018-05-12] MEDS: ATORVASTATIN 20 MG TAB PO SCH (20:40)
[2018-05-12] MEDS: ENOXAPARIN SODIUM 40 MG/0.4 ML SYG SUBCU SCH (20:40)
[2018-05-13] MEDS: SODIUM CHLORIDE 0.9% 1000ML 1,000 ML IVS PRN (04:05)
[2018-05-13] MEDS: cefTRIAXone SODIUM 1 GM in SODIUM CHL 0.9% 50ML MIN-BAG+ 50 ML IVPB SCH (05:28)
[2018-05-13] MEDS: OMEPRAZOLE CAP 20 MG CAP PO SCH (06:09)
--- NOTE | 2018-05-13 08:22 | RAD ---
PROCEDURE: KUB Clinical History: proximal ureteral stone right side Indication: Same as above Comparison: CT of the abdomen and pelvis done on 05/09/2018 Technique: Single supine view of the abdomen and pelvis. Findings: There is no gross evidence of free air in the abdomen or the pelvis on this single supine view of the abdomen and pelvis. The 5 mm calculus seen in the right upper pelvis on the prior CT examination done on 05/09/2018 is still noted, unchanged in location. Vascular calcifications are again noted in the pelvis. A nonspecific and nonobstructed bowel gas pattern is noted. Impression: The 5 mm calculus seen in the right upper pelvis on the prior CT examination done on 05/09/2018 is still noted, unchanged in location. Location of Interpretation: [id number] Electronically signed by: Foster Flanagan MD 05/13/2018 8:20 AM CDT Workstation: [employer]
[2018-05-13] MEDS ORDERED: SODIUM CHLORIDE 0.9% (FLUSH) 10 ML SYG IV SCH (09:00)
[2018-05-13] MEDS: MAGNESIUM HYDROXIDE 30 ML UD PO SCH (09:00)
[2018-05-13] MEDS: CITALOPRAM HBR 20 MG TAB PO SCH (09:00)
[2018-05-13] MEDS: FOLIC ACID 1 MG TAB PO SCH (09:01)
[2018-05-13] MEDS: TAMSULOSIN 0.4 MG CAP PO SCH (09:01)
[2018-05-13] MEDS: traMADol HCL 50 MG TAB PO PRN (09:01)
[2018-05-13] MEDS: LOSARTAN POTASSIUM 25 MG TAB PO SCH (09:02)
[2018-05-13] MEDS ORDERED: FLUCONAZOLE 100 MG TAB PO SCH (09:30)
[2018-05-13] MEDS: MORPHINE SULFATE INJ 10 MG/ML VIAL IV PRN ×2 (09:51→13:35)
[2018-05-13] MEDS ORDERED: MAGNESIUM HYDROXIDE 30 ML UD PO PRN (10:13)
[2018-05-13] MEDS ORDERED: BISACODYL SUPPOSITORY 10 MG PR ONE (11:40)
[2018-05-13] MEDS ORDERED: traMADol 37.5MG/APAP 325MG 1 EA TAB PO PRN (12:10)
[2018-05-13] MEDS ORDERED: WARFARIN SODIUM 2.5 MG TAB PO SCH (12:30)
[2018-05-13] MEDS ORDERED: IBUPROFEN 400 MG TAB PO ONE (13:06)
[2018-05-13] MEDS ORDERED: PHENAZOPYRIDINE HCL 200 MG TAB PO SCH (15:00)
[2018-05-13 17:58] VITALS: BP 176/86; TEMP 99; O2SAT 96
--- NOTE | 2018-05-14 08:39 | DS ---
SUPERVISING PHYSICIAN: Chalo Healy MD ADMISSION DIAGNOSIS: 1. Right proximal ureteral stone with leukocytosis with concerns for pyelonephritis. 2. Dehydration. 3. Hypertension. 4. Rheumatoid arthritis on immunosuppressant therapy. 5. Paroxysmal atrial fibrillation on warfarin with subtherapeutic INR. 6. History of peptic ulcer disease. DISCHARGE DIAGNOSIS: 1. Right proximal ureteral stone with final culture results showing a yeast species with no evidence of pyelonephritis. 2. Dehydration, resolved with fluids. 3. Hypertension, stable. 4. Rheumatoid arthritis on immunosuppressant therapy. 5. Paroxysmal atrial fibrillation with a controlled ventricular rate and now a therapeutic INR. 6. History of peptic ulcer disease with no complications. REASON FOR HOSPITALIZATION: Mr. Cruz is an 82 year-old male patient with a known right kidney stone which was diagnosed on 05/05/18 at [facility]. At that point the stone was quite proximal and he was treated with Flomax and IV fluids, but then sent home the next day. However, upon arrival at home he started to throw up and was really not been able to keep oral intake down. He went to see his primary care physician who then referred him to the Emergency Room. Dr. Lee in the Emergency Room evaluated the patient and repeated his CAT scan. The CT showed a 5 mm proximal ureteral stone on the right with a mild hydronephrosis. There was no sign of overt infectious process. Dr. Lee in the Emergency Room consulted with Dr. Hammond who recommended IV hydration and started Flomax. He was given Flomax in the Emergency Room as well as given some IV fluids. He was referred for admission and admitted in stable condition. LABORATORY STUDIES: CBC on admission showed leukocytosis of 14,700. By discharge, this had normalized to 9,500. Hemoglobin and hematocrit were stable and at discharge were 10.8 and 33.2 respectively with platelet count 200,000. Differential did show a persistent left shift, but improving. Coagulation studies showed a subtherapeutic INR of 1.19 and at discharge after management of his Coumadin levels, INR was up to 2.59 with PT 29.1. PTT on admission was 26.6. Chemistries on admission showed just a slightly elevated BUN with normal electrolytes. Creatinine 1.17, BUN 21. Electrolytes at discharge were normal with potassium 4.0, BUN 1.16. He had a slightly elevated CK on admission, but troponin was 0.03. Lipase was 15, albumin 4.4. Liver functions all within normal limits. Urinalysis on admission, clean cath specimen, showed 15 ketones , moderate amount of blood with negative leukocyte esterase, but greater than 50 RBCs, 3 to 5 WBCs, 0 to 1 epithelials, 1+ amorphus material with rare bacteria and 4+ budding yeast. Repeat urinalysis on date of discharge with a straight cath showed 15 ketones, a large amount of blood, a small amount of leukocyte esterase with 3 to 5 RBCs, 5 to 10 WBCs, no epithelials, 1+ bacteria and 1+ budding yeast. Please note that the patient is uncircumcised. MICROBIOLOGY: Initial urine culture showed yeast species. Repeat culture prior to discharge is pending. RADIOLOGY: CT of the abdomen and pelvis in the Emergency Room prior to admission per radiologic interpretation showed a 5 mm calculus proximal to the right ureter resulting in mild right sided hydronephrosis. Correlation with urinalysis recommended as well as urologic consultation, which were both completed to help exclude possibility of urinary tract infection. He then had a KUB on the morning of discharge and per radiologic interpretation showed 5 mm calculus in the right upper pelvis as noted on the prior CT examination from and unchanged in location. He did have a chest x-ray in the Emergency Department prior to admission and per radiologic interpretation showed portable chest with lungs normal aerating, clear, no obvious pleural effusion or pneumothorax seen. HOSPITAL COURSE: Mr. Cruz was admitted on 05/09/18 as noted above for control of pain and volume replacement secondary to ureteral stone as noted on CT scan. Given findings on his urinalysis initially suspicious for possible cystitis and urinary tract infection, he was started on Rocephin. He had a mild leukocytosis on admission and after treatment, this resolved. He was noted to have a significant amount of yeast on his urinalysis and culture final results, but the patient is uncircumcised and it is felt to be contamination. He was, however, started prophylactically on a single dose of fluconazole. Consultation with Dr. Hartley on date of discharge with repeat urinalysis that was a straight cath was agreed and it was felt that the specimen was more likely a contamination. The patient's pain was controlled. He was having no pain on date of discharge and had an appointment to see Dr. Hammond in the morning at 8:30. It was felt he had progressed significantly clinically and was afebrile and had good pain control with Flomax and fluids. Therefore, he was to be discharged to continue with followup in the outpatient setting. He was subtherapeutic on admission in regards to his INR and over the course of admission was given higher doses of warfarin which did result in him becoming therapeutic prior to discharge at which time he was discharged on his normal Coumadin levels at 2.5 mg. Again, Dr. Hartley was consulted in regards to plans for discharge and followup in regard to outpatient treatment plan prior to discharge. PLAN: Mr. Cruz was discharged on 05/13/[address] Hammond in the morning at 8:30. He was to resume his home medications as previous to hospitalization and take new medications as directed. Diet at discharge is regular diet as tolerated. Activity is to increase as tolerated. MEDICATIONS AT DISCHARGE: 1. Flomax 0.4 mg. 2. Ciprofloxacin 500 mg b.i.d. for 5 days. 3. AZO Standard t.i.d. 4. Tramadol 50 mg q.4h. as needed for pain. Condition at discharge was stable and improved. #[id number] [facility]
== END 2018-05-13 18:41 | disposition home or self-care (01) | DRG 694 ==
LOC: ER 12:11 → MS 15:28
PROVIDERS: ADMIT Nurse Practitioner; ATTEND Nurse Practitioner Family
DX: N13.2 Hydronephrosis with renal and ureteral calculous obstruction (principal); E86.0 Dehydration; I10 Essential (primary) hypertension; M06.9 Rheumatoid arthritis, unspecified; I48.0 Paroxysmal atrial fibrillation; R79.1 Abnormal coagulation profile; N40.0 Benign prostatic hyperplasia without lower urinary tract symptoms; E78.5 Hyperlipidemia, unspecified; M81.0 Age-related osteoporosis without current pathological fracture; J44.9 Chronic obstructive pulmonary disease, unspecified; F32.9 Major depressive disorder, single episode, unspecified; M19.90 Unspecified osteoarthritis, unspecified site; Z86.73 Personal history of transient ischemic attack (TIA), and cerebral infarction without residual deficits; Z79.01 Long term (current) use of anticoagulants; Z87.11 Personal history of peptic ulcer disease; Z87.891 Personal history of nicotine dependence; Z90.49 Acquired absence of other specified parts of digestive tract; Z98.84 Bariatric surgery status; Z79.899 Other long term (current) drug therapy

== ENCOUNTER → 2018-05-16 | Outpatient (CLI) | payer MEDICARE | LOC: NC 14:31 | PROVIDERS: ATTEND Family Medicine | DX: I48.91 Unspecified atrial fibrillation (principal) ==

== ENCOUNTER 2018-05-21 20:34 | Emergency (ER) | payer MEDICARE ==
--- NOTE | 2018-05-21 21:05 | ED.PDOC ---
History of Present Illness - General Chief Complaint: Abdominal Pain Stated Complaint: stomach/back pain after stent removal today Time Seen by Provider: 05/21/18 20:56 Information Source: patient - History of Present Illness Initial Comments: MR. VANEGAS PRESENTS TO THE ED WITH COMPLAINT OF RIGHT FLANK PAIN S/P HAVING A URETERAL STENT REMOVED EARLIER TODAY. HE STATES THAT THE PAIN IS UNRELIEVED WITH TRAMADOL. THE PATIENT STATES HE CAME INTO THE ED FOR EVALUATION DUE TO CONCERN THAT HE COULD HAVE ANOTHER "KIDNEY STONE" Abdominal Pain Onset Location: other - right flank Pain Radiation: back Quality: moderate, aching Timing/Duration: 4-6 hours Improving Factors: nothing Worsening Factors: movement Associated Symptoms: back pain Review of Systems - Review of Systems Constitutional: States: no symptoms reported EENTM: States: no symptoms reported Respiratory: States: no symptoms reported Cardiology: States: no symptoms reported Gastrointestinal/Abdominal: States: abdominal pain, nausea Genitourinary: States: no symptoms reported Musculoskeletal: States: no symptoms reported Skin: States: no symptoms reported Neurological: States: no symptoms reported Past Medical History (General) - Patient Medical History Hx Seizures: No Hx Stroke: Yes - TIA Hx Asthma: No Hx of COPD: Yes Hx Cardiac Disorders: Yes - Atrial fib Hx Congestive Heart Failure: No Hx Pacemaker: No Hx Hypertension: Yes Hx Diabetes: No Hx MRSA: No - Vaccination History Hx Tetanus, Diphtheria Vaccination: Yes Hx Influenza Vaccination: Yes Hx Pneumococcal Vaccination: Yes - Social History Hx Tobacco Use: No Hx Chewing Tobacco Use: No Hx Alcohol Use: Yes - 3 yrs ago, social drinker Hx Substance Use: No Hx Substance Use Treatment: No Hx Depression: Yes Hx Physical Abuse: No Hx Emotional Abuse: No Hx Suspected Abuse: No Family Medical History - Family History Father Living Status: Cause of : prostate cancer Hx Family;Other: kidney stone multiple family members Brother Family History: No Known Living Status: Hx Family Congestive Heart Failure: Yes Hx Family Hypertension: Yes Hx Cardiac Disease: Yes - CABG Hx Family;Other: Another sibling with DM and cardiac hx Physical Exam - Physical Exam General Appearance: Alert, Well Developed, Well Groomed Eyes, Ears, Nose, Throat Exam: PERRL/EOMI Neck: non-tender Respiratory: chest non-tender, lungs clear Cardiovascular/Chest: normal peripheral pulses, regular rate, rhythm Gastrointestinal/Abdominal: normal bowel sounds, other - THERE IS RIGHT CVA TENDERNESS NOTED. Back Exam: CVA tenderness (R) Extremity: normal range of motion, non-tender Lymphatic: no adenopathy Progress - Progress Progress: 05/21/18 21:07 PATIENT PRESENTATION CONCERNING FOR RIGHT F LANK PAIN AT THIS TIME BASED ON P.E. FINDINGS. WILL ORDER BASIC LABS(CBC,BMP) TO EVALUATE FOR INFECTION WELL ELECTROLYTE DYSFXN. PATIENT WILL ALSO RECEIVE UA TO EVALUATE FOR HEMATURIA IN LIGHT OF KIDNEY STONE ON DDX. PT WILL RECEIVE CT ABD/PEL TO EVALUATE FOR INTRAABDOMINAL PATHOLOGY. PT DISPO WILL BE DEPENDENT UPON FINDING DURING WORK UP. 05/21/18 22:10 THE PATIENT IS CLINICALLY SOBER, FREE FROM DISTRACTING INJURY, APPEARS TO HAVE INTACT INSIGHT AND JUDGMENT AND REASON AND IN MY OPINION HAS THE CAPACITY TO MAKE DECISIONS. I HAVE EXPLAINED TO PATIENT THAT I AM CONCERNED THAT THIS MAY REPRESENT A POTENTIAL LIFE THREATENING CONDITION, THEY HAVE VERBALIZED AN UNDERSTANDING OF MY CONCERNS. I HAVE TOLD THE PATIENT THAT HE COULD HAVE SERIOUS INTRAABDOMINAL PATHOLOGY WHICH NEEDS EVALUATION WITH LABS WELL IMAGING. I HAVE DISCUSSED THE NEED FOR FURTHER EVALUATION TO GET MORE INFORMATION ABOUT POTENTIAL CAUSES OF THE PATIENTS SYMPTOMS. INFORMED OF REASONABLY FORESEEABLE COMPLICATIONS INCLUDING AND DISABILITY, LOSS OF VISION, FERTILITY. I HAVE OFFERED TO GIVE THE PATIENT MORE MEDICATION, AND STAY FOR FURTHER EVALUATION. I HAVE DISCUSSED THESE CONCERNS WITH PT'S RN IN THE ROOM. THE PATIENT IS NOT WILLING TO STAY FOR FURTHER EVALUATION, HE IS UNWILLING TO STAY OVERNIGHT FOR MONITORING. HE IS REFUSING ANY FURTHER CARE AND IS LEAVING AGAINST MY MEDICAL RECOMMENDATIONS. I HAVE ASKED HIM TO RETURN SOON POSSIBLE TO COMPLETE HIS EVALUATION. I HAVE ANSWERED ALL OF HIS QUESTIONS. Departure - Departure Clinical Impression: Abdominal pain, Flank pain Disposition: Left Against Medical Advice Departure Forms: ED Discharge - Pt. Copy, Patient Portal Self Enrollment Instructions: DI for Abdominal Pain-Adult Referrals: Magdy Jones MD [Primary Care Provider] - 1-2 Days (PLEASE RETURN TO THE ED TO COMPLETE YOUR WORK UP AT YOUR EARLIEST CONVIENCE. IF YOU HAVE ANY ACUTE WORSENING GO TO THE NEAREST ED.) Home Medications: Ambulatory Orders Folic Acid 1 mg PO AM 12/25/13 Losartan Potassium 50 mg PO BID 12/25/13 Methotrexate Sodium [Methotrexate] 12.5 mg PO .QFRIDAYS 12/25/13 Warfarin Sodium 2.5 mg PO DAILY 12/25/13 Albuterol Sulfate Nebs [Proventil Nebs] 2.5 mg NEB QID PRN 02/17/16 Citalopram Hydrobromide [Celexa] 10 mg PO DAILY 02/17/16 Atorvastatin Calcium [Lipitor] 40 mg PO BEDTIME 05/09/18 Tamsulosin [Flomax] 0.4 mg PO BEDTIME 05/11/18 Ciprofloxacin [Cipro] 500 mg PO BID #10 tab 05/13/18 Phenazopyridine HCl [Azo Standard Maximum Stre] 97.5 mg PO TID #15 tab 05/13/18 Tamsulosin [Flomax] 0.4 mg PO DAILY #10 cap 05/13/18 Tramadol HCl 50 mg PO Q4HR #30 tab 05/13/18
[2018-05-21 21:06] VITALS: BP 192/79; TEMP 97.7; O2SAT 97
[2018-05-21] MEDS: MORPHINE SULFATE INJ 10 MG/ML VIAL IV ONE (21:15)
== END 2018-05-21 22:20 | disposition left against medical advice (07) ==
LOC: ER 20:34
DX: R10.9 Unspecified abdominal pain (principal); J44.9 Chronic obstructive pulmonary disease, unspecified; I48.91 Unspecified atrial fibrillation; I10 Essential (primary) hypertension; Z86.73 Personal history of transient ischemic attack (TIA), and cerebral infarction without residual deficits; Z79.01 Long term (current) use of anticoagulants; Z87.442 Personal history of urinary calculi

== ENCOUNTER → 2018-05-21 | Outpatient (CLI) | payer MEDICARE | LOC: NC 11:50 | PROVIDERS: ATTEND Family Medicine | DX: I48.91 Unspecified atrial fibrillation (principal) ==

== ENCOUNTER → 2018-06-04 | Outpatient (CLI) | payer MEDICARE | LOC: NC 17:05 | PROVIDERS: ATTEND Family Medicine | DX: I48.91 Unspecified atrial fibrillation (principal) ==

== ENCOUNTER → 2018-08-02 | Outpatient (CLI) | payer MEDICARE | LOC: NC 13:34 | PROVIDERS: ATTEND Family Medicine | DX: I48.91 Unspecified atrial fibrillation (principal) ==

== ENCOUNTER → 2018-08-13 | Outpatient (CLI) | payer MEDICARE | LOC: NC 10:11 | PROVIDERS: ATTEND Family Medicine | DX: I48.2 Chronic atrial fibrillation (principal); I10 Essential (primary) hypertension; J44.9 Chronic obstructive pulmonary disease, unspecified; M06.9 Rheumatoid arthritis, unspecified; Z86.73 Personal history of transient ischemic attack (TIA), and cerebral infarction without residual deficits ==

== ENCOUNTER → 2018-08-29 | Outpatient (CLI) | payer MEDICARE | LOC: GMAJ 11:30 | PROVIDERS: ATTEND Family Medicine | DX: I48.2 Chronic atrial fibrillation (principal); J44.9 Chronic obstructive pulmonary disease, unspecified; Z79.01 Long term (current) use of anticoagulants ==

== ENCOUNTER → 2018-09-24 | Outpatient (CLI) | payer MEDICARE | LOC: NC 11:15 | PROVIDERS: ATTEND Family Medicine | DX: I48.2 Chronic atrial fibrillation (principal); Z86.73 Personal history of transient ischemic attack (TIA), and cerebral infarction without residual deficits; Z79.01 Long term (current) use of anticoagulants ==

== ENCOUNTER 2018-11-23 11:39 | Inpatient (IN) | payer MEDICARE ==
[2018-11-23] MEDS ORDERED: ONDANSETRON INJ 4 MG/2 ML VIAL IV ONE (12:03)
[2018-11-23] MEDS ORDERED: SODIUM CHLORIDE 0.9% 1000ML 1,000 ML IVS PRN (12:03)
[2018-11-23] MEDS: SODIUM CHLORIDE 0.9% (FLUSH) 10 ML SYG IV PRN (12:38)
--- NOTE | 2018-11-23 13:24 | ED.PDOC ---
History of Present Illness - General Chief Complaint: Problem Stated Complaint: burning with urination, blood in urine Time Seen by Provider: 11/23/18 12:03 Source: patient, family Exam Limitations: no limitations - History of Present Illness Initial Comments: PT INSTRUCTED TO COME IN TO THE ED BY PCP SECONDARY TO CONTINUED HEMATURIA, GENERALIZED WEAKNESS, AND VOMITING AFTER BEING PRESCRIBED CIPRO FOR UTI 2 DAYS AGO. PT DENIES FEVER, CHILLS, DYSURIA, AT THIS TIME. Severity: moderate Improving Factors: nothing Worsening Factors: nothing Associated Symptoms: malaise, nausea/vomiting, weakness Allergies/Adverse Reactions: Allergies NO KNOWN ALLERGY Allergy (Verified 11/23/18 12:06) Home Medications: Ambulatory Orders Folic Acid 1 mg PO AM 12/25/13 Losartan Potassium 50 mg PO BID 12/25/13 Methotrexate Sodium [Methotrexate] 12.5 mg PO .QFRIDAYS 12/25/13 Albuterol Sulfate Nebs [Proventil Nebs] 2.5 mg NEB QID PRN 02/17/16 Citalopram Hydrobromide [Celexa] 10 mg PO DAILY 02/17/16 Atorvastatin Calcium [Lipitor] 40 mg PO BEDTIME 05/09/18 Tamsulosin [Flomax] 0.4 mg PO DAILY #10 cap 05/13/18 Finasteride [Proscar] 5 mg PO DAILY 11/23/18 Nitroglycerin 0.4 mg SL ONCE PRN 11/23/18 Potassium Chloride [Micro-K] 10 meq PO BID 11/23/18 Review of Systems - Review of Systems Constitutional: States: malaise, weakness. Denies: chills, fever EENTM: Denies: nose congestion, throat pain Respiratory: Denies: cough, short of breath Cardiology: Denies: chest pain, palpitations Gastrointestinal/Abdominal: States: nausea, vomiting Genitourinary: States: hematuria. Denies: dysuria Musculoskeletal: States: back pain. Denies: joint swelling Skin: Denies: dryness, lesions Neurological: Denies: headache, numbness Past Medical History (General) - Patient Medical History Hx Seizures: No Hx Stroke: Yes - TIA Hx Dementia: No Hx Asthma: No Hx of COPD: Yes Hx Cardiac Disorders: Yes - Atrial fib Hx Congestive Heart Failure: No Hx Pacemaker: No Hx Hypertension: Yes Hx Thyroid Disease: No Hx Diabetes: No Hx Gastroesophageal Reflux: Yes Hx Renal Disease: Yes - kidney stones requiring stents Hx of HIV: No Hx MRSA: No Surgical History: cholecystectomy - Vaccination History Hx Tetanus, Diphtheria Vaccination: Yes Hx Influenza Vaccination: Yes Hx Pneumococcal Vaccination: Yes - Social History Hx Tobacco Use: No Hx Chewing Tobacco Use: No Hx Alcohol Use: Yes - 3 yrs ago, social drinker Hx Substance Use: No Hx Substance Use Treatment: No Hx Depression: Yes Hx Physical Abuse: No Hx Emotional Abuse: No Hx Suspected Abuse: No Family Medical History - Family History Father Living Status: Cause of : prostate cancer Hx Family;Other: kidney stone multiple family members Brother Family History: No Known Living Status: Hx Family Congestive Heart Failure: Yes Hx Family Hypertension: Yes Hx Cardiac Disease: Yes - CABG Hx Family;Other: Another sibling with DM and cardiac hx Physical Exam - Physical Exam General Appearance: Alert, Comfortable, No apparent distress, Well Developed, Well Groomed, Well Hydrated Ears, Nose, Throat: hearing grossly normal Neck: full range of motion, supple Respiratory: lungs clear, normal breath sounds, no respiratory distress Cardiovascular/Chest: regular rate, rhythm, no edema, no murmur Gastrointestinal/Abdominal: non tender, soft Back Exam: CVA tenderness (L) Extremity: non-tender, normal inspection Neurologic: alert, normal mood/affect, oriented x 3 Skin Exam: warm/dry, pallor Progress - Results/Orders Results/Orders: Laboratory Tests 11/23/18 11/23/18 12:20 12:20 WBC 10.0 RBC 4.26 L Hgb 12.2 L Hct 38.2 L MCV 89.8 MCH 28.6 MCHC 31.9 L RDW 21.0 H Plt Count 173 MPV 9.2 Absolute Neuts (auto) 8.70 H Absolute Lymphs (auto) 0.30 L Absolute Monos (auto) 0.90 H Absolute Eos (auto) 0.00 Absolute Basos (auto) 0.00 Neutrophils % 87.3 H Lymphocytes % 3.0 L Monocytes % 8.9 Eosinophils % 0.3 L Basophils % 0.5 RBC Morphology 1+schistocytes Sodium 137 Potassium 4.1 Chloride 104 Carbon Dioxide 25 Anion Gap 12.1 BUN 18 Creatinine 1.23 BUN/Creatinine Ratio 14.6 Random Glucose 162 H Serum Osmolality 279.2 Calcium 8.7 Departure - Departure Clinical Impression: Urinary tract infection, Nausea & vomiting, Generalized muscle weakness, Failure of outpatient treatment Time of Disposition: 14:02 Disposition: Admit Patient Condition: Fair Departure Forms: ED Discharge - Pt. Copy, Patient Portal Self Enrollment Referrals: Magdy Jones MD [Primary Care Provider] - 1-2 Weeks Home Medications: Ambulatory Orders Folic Acid 1 mg PO AM 12/25/13 Losartan Potassium 50 mg PO BID 12/25/13 Methotrexate Sodium [Methotrexate] 12.5 mg PO .QFRIDAYS 12/25/13 Albuterol Sulfate Nebs [Proventil Nebs] 2.5 mg NEB QID PRN 02/17/16 Citalopram Hydrobromide [Celexa] 10 mg PO DAILY 02/17/16 Atorvastatin Calcium [Lipitor] 40 mg PO BEDTIME 05/09/18 Tamsulosin [Flomax] 0.4 mg PO DAILY #10 cap 05/13/18 Finasteride [Proscar] 5 mg PO DAILY 11/23/18 Nitroglycerin 0.4 mg SL ONCE PRN 11/23/18 Potassium Chloride [Micro-K] 10 meq PO BID 11/23/18 Decision To Admit - Decistion To Admit Decision to Admit Reason: Admit from ER Decision to Admit Date: 11/23/18 Decision to Admit Time: 14:03 - CASE DISCUSSED WITH GINO MOORE WHO AGREES TO ADMIT
[2018-11-23] MEDS ORDERED: cefTRIAXone SODIUM 1 GM in SODIUM CHL 0.9% 50ML MIN-BAG+ 50 ML IVPB ONE (14:00)
[2018-11-23] MEDS ORDERED: cefTRIAXone SODIUM 1 GM VIAL ONE (14:08)
[2018-11-23] MEDS ORDERED: SODIUM CHL 0.9% 50ML MIN-BAG+ 50 ML IVPB ONE (14:08)
--- NOTE | 2018-11-23 14:56 | HP ---
SUPERVISING PHYSICIAN: Chalo Healy M.D. CHIEF COMPLAINT: Burning with urination and hematuria. HISTORY OF PRESENT ILLNESS: Mr. Cruz is an 83 year-old male patient that presented to the Emergency Department today after he was instructed to do so by . He was in the office with his who was in for a checkup when he noted that he had been having some significant symptoms, including continued hematuria, weakness and vomiting. He had had a prostate resection on 10/31/[address] Hammond in [place] or what he described as prostate shaving. On he was seen in the clinic for urinary tract infection-like symptoms and started on Cipro 3 days after he started having some nausea and vomiting and could not hold any of his antibiotics in as well as he started developing some left sided CVA tenderness yesterday as well as reports he had a fever up to 101. With concerns for a possible pyelonephritis, he presented to the E. R. for evaluation. He noted that he was having some increased frequency which was resulting in some urination about every 10 minutes but only several cc's at a time. His laboratory studies in the E. R. showed he had a normal white count but he did have a left shift, the white count being at 10,000. Chemistries showed normal electrolytes with BUN at 18, creatinine 1.23. Urinalysis initially showed 100 protein, large amount of blood, trace leukocyte esterase and microscopic showing 20 to 30 RBCs, 40 to 50 WBCs with 3 to 5 epithelials, 1+ budding yeast and rare bacteria. Urine culture was submitted. He was started on antibiotic initially in the E. R. to include Rocephin. Vital signs showed that initially on admission he was afebrile with temperature 97.8. Dr. Green, E. R. physician, is requesting that the patient be admitted now for concerns for a possible left sided pyelonephritis given the patient's history and failure to respond to outpatient treatment measures for a urinary tract infection. PAST MEDICAL HISTORY: 1. Atrial fibrillation previously on chronic Eliquis therapy. 2. Benign prostatic hypertrophy. 3. Hyperlipidemia. 4. Hypertension. 5. Peptic ulcer disease. 6. Cardiovascular disease. 7. Diverticulosis. 8. Multiple kidney stones. 9. Osteoporosis. 10. Rheumatoid arthritis. 11. Transient ischemic attack. 12. Vertigo. 13. Chronic obstructive pulmonary disease. 14. Depression. 15. Osteoarthritis. PAST SURGICAL HISTORY: 1. Transurethral incision of the prostate on 10/31/18. 2. Cholecystectomy. 3. Left hip fracture repair. 4. Vagotomy and pyloroplasty. 5. Colonoscopy. CURRENT MEDICATIONS: 1. Flomax 0.4 mg daily. 2. Folic acid 1 mg daily. 3. Potassium chloride 10 mEq b.i.d. 4. Losartan potassium 50 mg b.i.d. 5. Lipitor 40 mg at bedtime. 6. Nitroglycerin sublingual 0.4 as needed. 7. Proscar 5 mg daily. 8. Methotrexate 12.5 mg every Monday. 9. Celexa 10 mg daily. ALLERGIES: NO KNOWN DRUG ALLERGIES. FAMILY HISTORY: Father secondary to prostate cancer. Mother secondary to congestive heart failure. SOCIAL HISTORY: The patient does have a history of smoking but quit 6 previous. He drinks just on rare social occasion. Does not use illicit drugs. He is and has 3 children and lives in [place], [place]. REVIEW OF SYSTEMS: CONSTITUTIONAL: Positive for subjective fever, chills, general malaise and weakness. HEENT: Negative for any nasal congestion, sore throat, ear aches, vision changes. RESPIRATORY: Negative for any shortness of breath, cough, wheezing. CARDIOVASCULAR: Negative for any chest pains, palpitations, syncopal episodes or peripheral edema. GASTROINTESTINAL: Positive for nausea and vomiting in the last 3 days. Negative for any abdominal pain, constipation. GENITOURINARY: Positive for hematuria, dysuria, polyuria and a recent TUIP procedure on 10/31/18. MUSCULOSKELETAL: Positive for CVA tenderness on the left. Denies any joint pain. SKIN: Negative for lesions, rashes. NEUROLOGIC: Negative for any headaches, seizure activity, ataxia. PHYSICAL EXAMINATION: VITAL SIGNS: Temperature 97.8, pulse 83, blood pressure 166/85, respirations 20, satting 95% on room air. Admission weight is 61.6 kg. GENERAL: The patient is an elderly male frail in appearance. Does look a little dehydrated but is in no acute distress. HEENT: Tympanic membranes are clear bilaterally. Oropharynx was pink with dry mucosal membranes. No lesions or rashes. NECK: Supple, full range of motion. No jugular venous distention. CHEST: Lungs were clear to auscultation without any rhonchi, wheezing or rales. CARDIOVASCULAR: Regular rate and rhythm without appreciable murmurs, gallops, or rubs. ABDOMEN: Soft, non-tender. Positive bowel sounds. BACK: Positive for left CVA tenderness. EXTREMITIES: No clubbing, cyanosis or edema. NEUROLOGIC: He is alert and oriented times three. LABORATORY: CBC showed a white count of 10,000, hemoglobin 12.2, hematocrit 38.2, platelet count 173,000. Differential shows a left shift. Chemistries show normal electrolytes with potassium 4.1, CPK was 48, BUN 18, creatinine 1.23. Initial urinalysis showed 100 glucose, large amount of blood, leukocyte esterase is trace and microscopic showed 20 to 30 RBCs, 40 to 50 WBCs, 3 to 5 epithelials, rare bacteria, 1+ budding yeast. MICROBIOLOGY: Urine culture is pending. RADIOLOGY: Abdominal/pelvis CT with contrast is pending. ASSESSMENT: 1. Urinary tract infection with probable Rosetta species with significant pyuria status post transurethral incision of the prostate on 10/31/18 and recent initiation of antibiotics in the last 3 days failing to respond to treatment measures with concerns for possible developing pyelonephritis secondary to findings consistent with left sided CVA tenderness and questionable urinary retention. 2. Hematuria with acute urinary retention requiring placement of Chin catheter. 3. Generalized deconditioning secondary to chronic illness and recent hospitalizations. 4. Dehydration, moderate. 5. History of hypertension showing to be stable. 6. Rheumatoid arthritis on immunosuppressant therapy with Methotrexate. 7. History of paroxysmal atrial fibrillation on previous Eliquis therapy showing controlled ventricular rate. 8. History of chronic peptic ulcer disease. 9. History of chronic nephrolithiasis. PLAN: The patient is going to be admitted to the Medical/Surgical floor with concerns for developing left sided pyelonephritis and possible complications from a urinary tract infection that has failed to respond to outpatient treatment measures. He had been on ciprofloxacin given his underlying immunocompromised state and concern for pyelonephritis and having been on Cipro. Will go ahead and start him on more aggressive coverage empirically with Meropenem 1 gram every 12 hours and vancomycin 1,000 mg every 12 hours with Pharmacy protocol starting tomorrow. Will go ahead and start him on some maintenance fluids as he looks a little dehydrated and is reportedly not having good oral intake. He has been having some nausea. Will plan to followup on his CT in the morning and address any of those findings. Will go ahead and start him on Fluconazole given the degree of yeast in his initial urine sample. Will anticipate length of stay to be at least 2 to 3 days. Will probably need to touch base with urology in [place] once we get a reading back off the CT of the abdomen and pelvis with contrast. Until the patient can transition to outpatient management once again will continue to monitor and treat as needed. #[id number] [facility]
[2018-11-23] MEDS ORDERED: FLUCONAZOLE 100 MG TAB PO SCH (15:30)
[2018-11-23] MEDS ORDERED: FLUCONAZOLE 100 MG TAB PO ONE (15:59)
[2018-11-23] MEDS ORDERED: SODIUM CHLORIDE 0.9% (FLUSH) 10 ML SYG IV PRN (16:01)
[2018-11-23] MEDS ORDERED: ACETAMINOPHEN 325 MG TAB PO PRN (16:01)
[2018-11-23] MEDS ORDERED: ONDANSETRON INJ 4 MG/2 ML VIAL IV PRN (16:01)
[2018-11-23] MEDS ORDERED: IV SET AND CAP CHANGE INJ INJ SCH (16:30)
[2018-11-23] MEDS: KCL 20MEQ/0.45% NS 1,000 ML IVS PRN (18:13)
--- NOTE | 2018-11-23 20:08 | CT ---
EXAM DESCRIPTION: Abdomen/Pelvis w/Contrast CLINICAL HISTORY: 83 years Male Acute retention,L CVA pain, s/p TUIP 10/31/18 COMPARISON: CT abdomen pelvis dated 05/09/2020 8T and entire shaft TECHNIQUE: Contiguous axial images were obtained through the abdomen and pelvis following the administration of intravenous contrast and/or oral contrast. Coronal and sagittal reconstructions are also obtained and reviewed. This exam was performed according to our departmental dose-optimization program, which includes automated exposure control, adjustment of the mA and/or kV according to patient size and/or use of iterative reconstruction technique. FINDINGS: LUNG BASES: HEART: There is right and left circumflex coronary atherosclerosis. Heart size is within normal limits LUNGS: The lungs are clear with the exception of minimal bibasilar discoid and/or dependent atelectasis/scarring. PLEURAL SPACES: There is no evidence of pleural fluid or pneumothorax . ABDOMEN: LIVER: Normal in size and configuration. There are no significant focal defects. There is mild periportal edema. GALLBLADDER AND BILE DUCTS: The gallbladder is absent status post cholecystectomy with surgical clips in the gallbladder fossa. There is extrahepatic biliary ductal dilatation with the common hepatic duct measuring 1.1 cm. PANCREAS: Noted again are severe coarse calcifications in the proximal neck of the pancreas with severe obstruction of the pancreatic duct which appears similar and measures up to 0.9 cm. There are no peripancreatic inflammatory changes. SPLEEN: Unremarkable. No splenomegaly or focal defects. ADRENALS: Unremarkable. No mass or calcification. KIDNEYS AND URETERS: There is mild left pelvocaliectasis and ureterectasis associated with left perinephric, peripelvic and periureteric reticulation with pararenal fascial thickening and mild enhancement of the wall of the left renal pelvis and ureter secondary to a large obstructive calculus in the distal ureter measuring 7 mm x 6 mm There is no evidence of solid renal mass. There are no nonobstructive intrarenal calculi. Intrarenal atherosclerotic vascular calcifications are present. Mild enhancement of the wall of the left renal pelvis and ureter may indicate infection. There is some focal scarring in the right kidney. DISTAL ESOPHAGUS, STOMACH AND BOWEL: The distal esophagus is unremarkable. Postoperative changes of partial gastric resection noted with gastrojejunostomy. The small bowel is unremarkable. The colon is unremarkable. The rectum is unremarkable. No evidence of intestinal obstruction. PELVIS: APPENDIX: Present and appears normal with no findings to suggest acute appendicitis. BLADDER: The urinary bladder is decompressed by a Chin catheter with intraluminal air probably related to the instrumentation. While this thickened up to 8 mm concerning for cystitis.. There is no evidence of cystolithiasis or bladder mass. REPRODUCTIVE: The prostate and seminal vesicles are unremarkable. ABDOMEN and PELVIS: INTRAPERITONEAL SPACE: There is a small amount of free fluid in the pelvis which is abnormal in a postmenopausal female and likely secondary to left pyelonephritis. There is no evidence of free air BONES AND JOINTS: There are no discernible acute fractures or areas of osseous destruction or blastic change. There are diffuse enthesopathic changes including a rolling pattern of ossification in the thoracic spine consistent with diffuse idiopathic skeletal hyperostosis (DISH). There is grade 1 anterolisthesis of L5 relative to S1 appears to be on the basis of facet arthropathy in the absence of discernible spondylolyses. SOFT TISSUES: Unremarkable. VASCULATURE: There is severe diffuse atherosclerosis of the aorta and visceral branches with severe narrowing at the origins of the SMA and renal arteries and NAIN. LYMPH NODES: Unremarkable. There is no evidence of mesenteric, retroperitoneal, pelvic or inguinal adenopathy. IMPRESSION: Large obstructing calculus in the distal left ureter measuring 7 mm x 6 mm. The appearance of some enhancement of the wall of the left renal pelvis and ureter may indicate infection. Extrahepatic biliary ductal dilatation may reflect expected sequela of cholecystectomy with a biliary reservoir effect. Given its stability, this is most likely A distal common bile duct obstruction, as may occur with choledocholithiasis or benign or malignant stricture, is a less likely consideration but warrants correlation with liver function tests and mrcp or ercp if indicated. Severe diffuse atherosclerosis of the aorta and visceral branches with severe narrowing at the origins of the SMA and renal arteries and NAIN. Nonspecific periportal edema results from increased lymph production or lymphatic obstruction, although most commonly a result of rapid and aggressive rehydration. Other differential considerations include candidal and viral hepatitis, congestive heart failure, sclerosing cholangitis, acalculus cholecystitis, abdominal trauma, hypoproteinemia and pyelonephritis (most likely in this case). Obstructive adenopathy in the tari hepatis is also in the differential in the appropriate clinical setting. Cystitis. Remainder of findings as described above. Electronically signed by: Licha Dacosta MD 11/23/2018 8:07 PM HEALTHCARE INTERPRETER
[2018-11-23] MEDS: POTASSIUM CHLORIDE 10 MEQ TAB PO SCH (20:40)
[2018-11-23] MEDS: ATORVASTATIN 20 MG TAB PO SCH (20:40)
[2018-11-23] MEDS: LOSARTAN POTASSIUM 100 MG TAB PO SCH (20:40)
[2018-11-23] MEDS ORDERED: VANCOMYCIN PER PHARMACY IVPB SCH (21:00)
[2018-11-23] MEDS ORDERED: SODIUM CHLORIDE 0.9% 250ML 250 ML ONE (21:03)
[2018-11-23] MEDS ORDERED: VANCOMYCIN HCL INJ 1,000 MG VIAL IVPB ONE (21:03)
[2018-11-23] MEDS: ENOXAPARIN SODIUM 30 MG/0.3 ML SYG SUBCU SCH (21:09)
[2018-11-23] MEDS: VANCOMYCIN HCL INJ 1,000 MG in SODIUM CHLORIDE 0.9% 250ML 250 ML IVPB SCH (21:09)
[2018-11-24] MEDS: KCL 20MEQ/0.45% NS 1,000 ML IVS PRN (08:04)
[2018-11-24] MEDS ORDERED: SODIUM CHLORIDE 0.9% 250ML 250 ML ONE ×2 (08:28→19:38)
[2018-11-24] MEDS ORDERED: VANCOMYCIN HCL INJ 1,000 MG VIAL IVPB ONE ×2 (08:29→19:39)
[2018-11-24] MEDS: FLUCONAZOLE 100 MG TAB PO SCH (09:12)
[2018-11-24] MEDS: POTASSIUM CHLORIDE 10 MEQ TAB PO SCH ×2 (09:12→20:51)
[2018-11-24] MEDS: FINASTERIDE 5 MG TAB PO SCH (09:12)
[2018-11-24] MEDS: CITALOPRAM HBR 20 MG TAB PO SCH (09:12)
[2018-11-24] MEDS: FOLIC ACID 1 MG TAB PO SCH (09:13)
[2018-11-24] MEDS: TAMSULOSIN 0.4 MG CAP PO SCH (09:13)
[2018-11-24] MEDS: VANCOMYCIN HCL INJ 1,000 MG in SODIUM CHLORIDE 0.9% 250ML 250 ML IVPB SCH (09:13)
[2018-11-24] MEDS: LOSARTAN POTASSIUM 100 MG TAB PO SCH ×2 (09:13→20:51)
[2018-11-24] MEDS ORDERED: VANCOMYCIN HCL INJ 750 MG in SODIUM CHLORIDE 0.9% 250ML 250 ML IVPB SCH (11:00)
[2018-11-24] MEDS: ATORVASTATIN 20 MG TAB PO SCH (20:51)
[2018-11-24] MEDS: VANCOMYCIN HCL INJ 750 MG in SODIUM CHLORIDE 0.9% 250ML 250 ML IVPB SCH (20:52)
[2018-11-24] MEDS: ENOXAPARIN SODIUM 30 MG/0.3 ML SYG SUBCU SCH (20:52)
--- NOTE | 2018-11-24 21:46 | PN ---
DATE: 11/24/18 SUPERVISING PHYSICIAN: Chalo Healy M.D. SUBJECTIVE: The patient notes that he feels a little bit better today. He has had no recurrence of the pain or nausea or vomiting. Since the Chin has been placed he has had good output. OBJECTIVE: VITAL SIGNS: Temperature 98.2, pulse 85, blood pressure 155/82, respirations 93% on room air. I's and O's show a positive balance of 80 with 1430 in, 1350 out. Weight is 60.7 kg. CHEST: Lungs are clear to auscultation. HEART: Regular rate and rhythm. ABDOMEN: Soft, non-tender. Positive bowel sounds. EXTREMITIES: Without any clubbing, cyanosis or edema. NEUROLOGIC: He is alert and oriented times three. LABORATORY: white count 7,500, hemoglobin 11.6, hematocrit 6.6, platelet count 160,000. Differential today shows resolving left shift. Chemistries continue to show normal electrolytes with BUN 16, creatinine 1.07, anion gap 10. Urinalysis after Chin was placed yesterday for acute urinary retention showed a large amount of blood with moderate amount of leukocyte esterase. WBCs show 40 to 50, 10 to 20 RBCs, 0 epithelials, rare bacteria. No blood or mucous noted. MICROBIOLOGY: Urine culture is pending. RADIOLOGY: He had an abdominal/pelvic CT done yesterday after admission and per radiology interpretation showed a large obstructing calculous in the distal left ureter measuring 7 x 6 mm, appearance of some enhancement in the wall of the left renal pelvis and ureter may indicate some infection. There was note that the prostate appeared to be unremarkable. There was note of acute cystitis. Please see that additional report for full details. ASSESSMENT: 1. Urinary tract infection secondary to acute urinary retention probably due to previous transurethral incision of the prostate with concerns for possible pyelonephritis as noted in the CTA of the abdomen with noted left possible obstructing calculous, but the patient continuing to show improvement without any obvious pain or discomfort currently on antibiotic coverage with Meropenem and vancomycin with budding yeast with concerns for Candidal yeast infection more likely contamination prior to Chin placement in a patient that is not circumcised. 2. Hematuria secondary to urinary retention showing improvement after Chin placement. 3. Generalized deconditioning secondary to chronic illness and recent hospitalizations. 4. Dehydration, moderate, improved with IV fluids. 5. History of hypertension showing to be stable. 6. Rheumatoid arthritis on immunosuppressant therapy with Methotrexate. 7. History of paroxysmal atrial fibrillation on previous Eliquis therapy showing controlled ventricular rate at time of admission. 8. History of chronic peptic ulcer disease. 9. History of chronic nephrolithiasis as noted. See the CT report for further details. PLAN: The patient clinically shows to improve despite the findings that were noted on CT. I would like to have the CT over read and should it show again that there is no obstructing stone, and in that sense will plan to get a repeat ultrasound on Monday as well. Given that the patient continues to show clinical improvement, at this point I think the patient does well with his current antibiotic therapy with Meropenem and vancomycin awaiting culture results and after Chin placement. Once we have the results on Monday certainly will touch base with his urologist, Dr. Hammond, and should he show any clinical decline certainly will need to touch base with urology services prior to repeat of the exam on Monday. Will continue with Fluconazole given that he did have a great deal of yeast, I think this is more contamination externally from a patient who is not circumcised. Will continue with IV fluids and pain management as needed. Again anticipate hopefully being able to discharge by Monday. Until then continue to monitor and treat as needed. #[id number] [facility]
[2018-11-25] MEDS: KCL 20MEQ/0.45% NS 1,000 ML IVS PRN (00:28)
[2018-11-25] MEDS ORDERED: VANCOMYCIN HCL INJ 1,000 MG VIAL IVPB ONE ×2 (07:30→19:16)
[2018-11-25] MEDS ORDERED: SODIUM CHLORIDE 0.9% 250ML 250 ML ONE ×2 (07:30→19:15)
[2018-11-25] MEDS: VANCOMYCIN HCL INJ 750 MG in SODIUM CHLORIDE 0.9% 250ML 250 ML IVPB SCH ×2 (08:56→21:11)
[2018-11-25] MEDS: CITALOPRAM HBR 20 MG TAB PO SCH (09:02)
[2018-11-25] MEDS: TAMSULOSIN 0.4 MG CAP PO SCH (09:02)
[2018-11-25] MEDS: FINASTERIDE 5 MG TAB PO SCH (09:02)
[2018-11-25] MEDS: LOSARTAN POTASSIUM 100 MG TAB PO SCH ×2 (09:02→21:10)
[2018-11-25] MEDS: FOLIC ACID 1 MG TAB PO SCH (09:02)
[2018-11-25] MEDS: POTASSIUM CHLORIDE 10 MEQ TAB PO SCH ×2 (09:02→21:09)
[2018-11-25] MEDS: FLUCONAZOLE 100 MG TAB PO SCH (09:03)
[2018-11-25] MEDS: SODIUM CHLORIDE 0.9% (FLUSH) 10 ML SYG IV SCH ×2 (11:30→21:10)
[2018-11-25] MEDS ORDERED: FUROSEMIDE 40 MG TAB PO ONE (12:00)
[2018-11-25] MEDS: SODIUM CHLORIDE 0.9% (FLUSH) 10 ML SYG IV PRN (12:06)
--- NOTE | 2018-11-25 18:07 | PN ---
DATE: 11/25/18 SUPERVISING PHYSICIAN: Chalo Healy M.D. SUBJECTIVE: The patient continues to do well. He has had no return of his pain or nausea or vomiting. He, however, does still remain very weak. He has been afebrile and Chin catheter remains in place. OBJECTIVE: VITAL SIGNS: Showing some hypertension with blood pressure 168/99, heart rate 60, temperature 98.8, respirations 18, showing 94% on room air. I's and O's do show a positive balance on his fluids at 1340 with 2540 in, 1200 out. Weight is 60.7 kg. GENERAL: The patient appears to be comfortable in no acute distress. CHEST: Lungs were clear to auscultation. HEART: Regular rate and rhythm. ABDOMEN: Soft, non-tender. Positive bowel sounds. EXTREMITIES: Do not show any cyanosis, clubbing, or edema. NEUROLOGIC: He is alert and oriented times three. LABORATORY: Chemistries and CBC have been fairly stable. MICROBIOLOGY: Urine culture showed less than 10,000 urogenital james present. No common pathogens. RADIOLOGY: No additional radiographic studies today. The CT of the abdomen and pelvis was done on 11/23/18. We need to see if Dr. Kwon will take a look at it and over read the current reading prior to discharge. ASSESSMENT: 1. Urinary tract infection with the patient having acute urinary retention and a recent transurethral incision of the prostate on 10/31/18 with questionable left obstructing calculous noted on CT of the abdomen at time of admission with the patient requiring Chin placement and continued on fairly aggressive management with antibiotics including Metoprolol and vancomycin showing to be stable. 2. Yeast infection as noted on initial urinary tract infection probably due to skin contamination as the patient is uncircumcised and currently on Fluconazole given the patient's past history, co-morbidities and immunocompromised condition. 3. Hematuria secondary to acute urinary retention and requiring Chin placement. 4. Generalized deconditioning secondary to chronic illness and recent hospitalizations. 5. Dehydration, improved with IV fluids showing to be improved with fluids. 6. History of hypertension showing some persistent hypertension probably related to aggressive fluid management. 7. Rheumatoid arthritis on immunosuppressants including Methotrexate. 8. History of paroxysmal atrial fibrillation on previous Eliquis therapy showing controlled ventricular rate at time of admission and on Lovenox awaiting further medication verification. 9. History of chronic nephrolithiasis. Please see the CT report on admission and have Dr. Kwon, radiologist, over read that reading prior to discharge. PLAN: Will continue with aggressive management at this point awaiting anticipation of discharge tomorrow. Will need to have Dr. Kown read the CT that was done on Monday to further assess for what was initially reported out as obstructing calculi on the left. The patient has been asymptomatic in regards to pain, nausea, vomiting and fevers which does not really clinically correlate to those findings, but will go ahead and also do an ultrasound of the kidneys to further assess for any urinary retention given his past medical history. I have him saline locked and I will probably give him a little bit of Lasix today to see if that will help his blood pressure and take him back to a more euvolemic state. Hopefully be able to discharge him tomorrow once all of the results are in from the ultrasound and the re-read of the CT of the abdomen and pelvis with Dr. Kwon. Certainly will need to touch base with his urologist, Dr. Hammond and discuss followup plan and further treatment in regards to the findings of both the CT and the ultrasound, and past 3 day treatment for concern for acute urinary retention, although his urine culture showed normal urogenital james. Will continue cover with Fluconazole as well until we hear from Dr. Hammond. It would not be a bad idea probably to recheck a urinalysis in the morning to see if he is actually clearing up in regards to those previous urine specimens. Until he can transition to outpatient management, will continue to monitor and treat as needed. #[id number] [facility]
[2018-11-25] MEDS: ATORVASTATIN 20 MG TAB PO SCH (21:09)
[2018-11-25] MEDS: ENOXAPARIN SODIUM 30 MG/0.3 ML SYG SUBCU SCH (21:10)
[2018-11-26] MEDS ORDERED: SODIUM CHLORIDE 0.9% 250ML 250 ML ONE (07:03)
[2018-11-26] MEDS ORDERED: VANCOMYCIN HCL INJ 1,000 MG VIAL IVPB ONE (07:04)
[2018-11-26] MEDS: SODIUM CHLORIDE 0.9% (FLUSH) 10 ML SYG IV SCH (08:55)
[2018-11-26] MEDS: TAMSULOSIN 0.4 MG CAP PO SCH (08:55)
[2018-11-26] MEDS: LOSARTAN POTASSIUM 100 MG TAB PO SCH (08:56)
[2018-11-26] MEDS: POTASSIUM CHLORIDE 10 MEQ TAB PO SCH (08:57)
[2018-11-26] MEDS: FOLIC ACID 1 MG TAB PO SCH (08:57)
[2018-11-26] MEDS: CITALOPRAM HBR 20 MG TAB PO SCH (08:57)
[2018-11-26] MEDS: FLUCONAZOLE 100 MG TAB PO SCH (08:57)
[2018-11-26] MEDS: FINASTERIDE 5 MG TAB PO SCH (08:58)
[2018-11-26] MEDS ORDERED: APIXABAN 2.5 MG TAB PO SCH (09:00)
[2018-11-26] MEDS: VANCOMYCIN HCL INJ 750 MG in SODIUM CHLORIDE 0.9% 250ML 250 ML IVPB SCH (09:01)
[2018-11-26 10:10] VITALS: TEMP 98.5; O2SAT 96
--- NOTE | 2018-11-26 11:26 | US ---
EXAM DESCRIPTION: Renal CLINICAL HISTORY: 83 years Male, left cva tenderness COMPARISON: CT November 23, 2018 FINDINGS: The right kidney measures 11.6 cm in length. There are several tiny nonobstructing calculi in the right renal hilum. No right-sided hydronephrosis, right renal cortical thinning or perinephric fluid. The left kidney measures 11.0 cm in length. There is mild to moderate left-sided hydronephrosis with a few tiny calculi in the left renal hilum better seen on recent CT. No left renal cortical thinning or perinephric fluid. A Chin catheter is present in the bladder which is collapsed and not well evaluated. IMPRESSION: Mild to moderate left-sided hydronephrosis, stable or slightly worse from November,. No left-sided perinephric fluid or additional abnormality to explain patient's symptoms. Bilateral renovascular calcifications better seen on recent CT Electronically signed by: Nabil Miller MD 11/26/2018 11:24 AM DINING MANAGER
[2018-11-26 13:58] VITALS: BP 143/82
--- NOTE | 2018-11-26 15:48 | DS ---
SUPERVISING PHYSICIAN: Magdy Jones MD ADMISSION DIAGNOSIS: 1. Urinary tract infection with probable Rosetta species with significant pyuria status post transurethral resection of the prostate on 10/31/18. 2. Hematuria with acute urinary retention requiring placement of Chin catheter. 3. Generalized deconditioning secondary to chronic illness and recent hospitalizations. 4. Dehydration. 5. History of hypertension. 6. Rheumatoid arthritis on immunosuppressant medications. . 7. History of atrial fibrillation on Eliquis therapy.. 8. History of peptic ulcer disease. 9. History of nephrolithiasis. DISCHARGE DIAGNOSIS: 1. 7 mm left ureteral stone with hydronephrosis. 2. Urinary tract infection with Rosetta species with no mounting white count and no fever. 2. 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 3. Dehydration, improved. 4. Hypertension, stable. 5. Rheumatoid arthritis on immunosuppressant medications. . 6. History of atrial fibrillation on Eliquis therapy.. HOSPITAL COURSE: This is an 83 year-old malleable patient who came to the hospital with basically urinary retention. He has had transurethral resection of the prostate on the . On he was started on some antibiotics for urinary tract infection, however, later developed some left CVA tenderness and a fever up to 101. He had a catheter placed here at the hospital and started on antibiotics. He step-meyer improved and his renal function was normal. He was not having any further fever once he was admitted, however, he did have a CT scan which showed a 7 mm obstructing stone in the distal ureter. Due to these findings, I discussed with Dr. Hammond today regarding the obstructing stone as well as the urinary retention. He asked me if the patient has noted fever for which I told him over the last 48 hours he has not had any fever and is hemodynamically stable. White count is normal and his urinalysis does not show any significant bacteria, however, did show the yeast on the initial urinalysis. His instructions were to discharge the patient to home and to be at his office at 9 o'clock in the morning for a planned stone extraction and he would simultaneously also address the urinary retention with his catheter. I have relayed these instructions to the patient and his has been notified as well. Therefore, the patient was discharged in stable condition today with those instructions. I have instructed him to resume the Cipro that he was taking prior to admission. He does have home health with physical therapy and this will be resumed after his procedures as well. #[id number] [facility]
== END 2018-11-26 15:17 | disposition home health service (06) | DRG 728 ==
LOC: ER 11:39 → MS 14:55
PROVIDERS: ADMIT Family Medicine; ATTEND Nurse Practitioner Family
DX: B37.49 Other urogenital candidiasis (principal); N13.2 Hydronephrosis with renal and ureteral calculous obstruction; I48.91 Unspecified atrial fibrillation; N40.1 Benign prostatic hyperplasia with lower urinary tract symptoms; I10 Essential (primary) hypertension; E78.5 Hyperlipidemia, unspecified; M81.0 Age-related osteoporosis without current pathological fracture; M06.9 Rheumatoid arthritis, unspecified; J44.9 Chronic obstructive pulmonary disease, unspecified; F32.9 Major depressive disorder, single episode, unspecified; E86.0 Dehydration; R33.8 Other retention of urine; M62.81 Muscle weakness (generalized); M19.90 Unspecified osteoarthritis, unspecified site; Z86.73 Personal history of transient ischemic attack (TIA), and cerebral infarction without residual deficits; Z87.891 Personal history of nicotine dependence

== ENCOUNTER 2018-12-11 19:08 | Emergency (ER) | payer MEDICARE ==
[2018-12-11] MEDS ORDERED: MORPHINE SULFATE INJ 10 MG/ML VIAL IV ONE (19:13)
--- NOTE | 2018-12-11 20:11 | CT ---
PROCEDURE: Head CLINICAL HISTORY: 83 years Male severe acute head and back pain COMPARISON: None. TECHNIQUE: Contiguous axial CT images obtained through the brain without IV contrast. This exam was performed according to our department optimization program which includes automated exposure control, adjustment of the mA and/or kv according to patient size and/or use of iterative reconstruction technique. FINDINGS: The ventricles and sulci are prominent consistent with atrophic changes. Extensive microvascular ischemic changes. 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 Low-attenuation in the central romero also suggesting previous area of infarct. No midline shift or mass effect. No mass lesions. No acute hemorrhage. Atherosclerotic calcifications. Mucosal thickening in scattered paranasal sinuses. No depressed calvarial fractures. IMPRESSION: No acute intracranial abnormality is identified. Generalized atrophy with microvascular ischemic changes. Electronically signed by: Libby Martinez MD 12/11/2018 8:[address] [facility]
--- NOTE | 2018-12-11 20:25 | CT ---
PROCEDURE: CTA Chest (accession [id number]), Abdomen/Pelvis w/Contrast (accession [id number]) CLINICAL HISTORY: 83 years Male severe acute head and back pain COMPARISON: None. TECHNIQUE: Contiguous axial images were obtained through the chest during the infusion of IV contrast. Reformatted images obtained. MIP reformatted images obtained. Postcontrast axial imaging was acquired through the abdomen and pelvis with sagittal and coronal multiplanar reconstructions. This exam was performed according to our department optimization program which includes automated exposure control, adjustment of the mA and/or kv according to patient size and/or use of iterative reconstruction technique. FINDINGS: Chest: There is calcification in the aorta and its branches. No evidence aortic dissection. Coronary calcification is noted. Trace pericardial fluid. No evidence of acute consolidation. No pneumothorax. No significant thoracic adenopathy. Abdomen pelvis: The liver and spleen are unremarkable. There are extensive calcifications in the pancreas consistent with chronic calcific pancreatitis. Large focus of calcification is present along the pancreatic head and may be within the pancreatic duct. Common bile duct also appears dilated as do the intrahepatic bile ducts similar to the previous examination. As previously noted, MRCP or ERCP could be acquired if indicated. There is calcification in the renal filipe bilaterally likely vascular. Small stone suspected on the left. No hydronephrosis. TUR defect in the bladder. Asymmetry in the seminal vesicles. Extensive calcification in the common and external iliac arteries. Previous percutaneous pinning in the left hip. IMPRESSION:No evidence of pulmonary embolus Extensive vascular calcification Chronic calcific pancreatitis with large calcific density in the pancreatic head which may result in some ductal dilatation distally. This is unchanged from the prior exam Intrahepatic and extrahepatic biliary ductal dilatation which may be as a result of cholecystectomy changes. If there is clinical concern ERCP or MRCP could be acquired Nonobstructing left renal stone Previous TUR defect Electronically signed by: Libby Martinez MD 12/11/2018 8:23 PM SUPER[employer]OR [employer]
[2018-12-11] MEDS ORDERED: diazePAM 2 MG TAB PO ONE (20:48)
[2018-12-11] MEDS ORDERED: SODIUM CHLORIDE 0.9% 1000ML 1,000 ML IVS ONE (21:14)
[2018-12-11] MEDS ORDERED: HYDROcodone 5MG/APAP 325MG 1 EA TAB PO ONE (23:22)
--- NOTE | 2018-12-12 00:48 | ED.PDOC ---
History of Present Illness - General Chief Complaint: Cardiovascular Problem Stated Complaint: neck pain, head, Time Seen by Provider: 12/11/18 19:11 Source: patient Exam Limitations: no limitations - History of Present Illness Initial Comments: The patient is an 83-year-old male presenting to emergency room secondary to severe pain. Pain is rated a 10 out of 10. He reports that the pain started as a pain at the base of the skull primarily on the right. Within a few minutes he developed severe pain between his shoulder blades. He subsequently developed some chest pain and then left lower abdominal pain all within a period of about 10 minutes. The pain is about the worst pain he has ever had. When EMS arrived they registered systolic blood pressures in the 210s. Heart rates were in the 130s. The patient was diaphoretic and in obvious distress. He received several doses of nitroglycerin and some Lopressor. By the time he arrived here his systolic blood pressures were down into the 180s and within 10 minutes his blood pressures were down to the 130s and 140s and his pain had resolved. He still has some residual left lower abdominal pain. No fu rther pain between the shoulder blades but he did still have a mild residual headache. No altered mental status. No shortness of breath. No hypoxia. EKGs showed atrial fibrillation with rapid ventricular rate hich is an old finding. No evidence of any new ST segment changes or T-wave changes when compared with previous EKGs. There is significant static due to tremor. No significant axis change or new bundle-branch blocks. Due to the severity of presentation the patient was taken urgently to CT scan as the probability of having a dissection was felt to be significant. He did receive 2 mg of morphine here upon arrival as well. The patient is on Eliquis. additional information is that the patient was admitted here 2 weeks ago for pyelonephritis and a obstructing left distal ureteral stone. He actually went and saw his urologist this morning and they have plans on doing a lithotripsy on Monday morning. Significantly since about 4 PM the patient has been unable to urinate. the patient does have a history of rheumatoid arthritis, diverticulitis, COPD, hip fracture with repair, TURP, cholecystectomy, chronic pancreatitis, cholecystectomy and kidney stones in the past. Timing/Duration: unsure Severity: severe Improving Factors: medication Worsening Factors: nothing Associated Symptoms: chest pain, loss of appetite, malaise Allergies/Adverse Reactions: Allergies NO KNOWN ALLERGY Allergy (Verified 11/23/18 15:18) Home Medications: Ambulatory Orders Folic Acid 1 mg PO AM 12/25/13 Losartan Potassium 50 mg PO DAILY 12/25/13 Methotrexate Sodium [Methotrexate] 12.5 mg PO .QFRIDAYS 12/25/13 Citalopram Hydrobromide [Celexa] 10 mg PO DAILY 02/17/16 Atorvastatin Calcium [Lipitor] 40 mg PO BEDTIME 05/09/18 Nitroglycerin 0.4 mg SL ONCE PRN 11/23/18 Potassium Chloride [Micro-K] 10 meq PO BID 11/23/18 Apixaban [Eliquis] 2.5 mg PO BID 11/25/18 Omeprazole 20 mg PO DAILY 11/25/18 Terazosin HCl 10 mg PO BEDTIME 11/25/18 Sulfa/Trimeth 800/160 (Ds) Tab [Bactrim DS] 1 tablet PO BID 12/11/18 Review of Systems - Review of Systems Constitutional: States: diaphoresis, malaise, weakness EENTM: States: no symptoms reported Respiratory: States: no symptoms reported Cardiology: States: chest pain Gastrointestinal/Abdominal: States: abdominal pain, nausea Genitourinary: States: see HPI Musculoskeletal: States: back pain Skin: States: no symptoms reported Neurological: States: headache Endocrine: States: no symptoms reported All other Systems: No Change from Baseline Past Medical History (General) - Patient Medical History Hx Seizures: No Hx Stroke: Yes - TIA Hx Dementia: No Hx Asthma: No Hx of COPD: Yes Hx Cardiac Disorders: Yes - Hx A-Fib Hx Congestive Heart Failure: No Hx Pacemaker: No Hx Hypertension: Yes Hx Thyroid Disease: No Hx Diabetes: No Hx Gastroesophageal Reflux: Yes Hx Renal Disease: Yes - kidney stones requiring stents Hx of HIV: No Hx MRSA: No Surgical History: cholecystectomy, gastric bypass - Vaccination History Hx Tetanus, Diphtheria Vaccination: No Hx Influenza Vaccination: Yes Hx Pneumococcal Vaccination: Yes - Social History Hx Tobacco Use: No Hx Chewing Tobacco Use: No Hx Alcohol Use: No Hx Substance Use: No Hx Substance Use Treatment: No Hx Depression: Yes Hx Physical Abuse: No Hx Emotional Abuse: No Hx Suspected Abuse: No - Triage Comment ED Triage Comment: Family called EMS to residence. Pt c/o of moderate to severe pain to back of head, neck and shoulders. Pt reports some discomfort breathing. Pt BP was elevated. 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 Pt c/o CANO upon arrival. Family Medical History - Family History Father Living Status: Cause of : prostate cancer Hx Family;Other: kidney stone multiple family members Brother Family History: No Known Living Status: Hx Family Congestive Heart Failure: Yes Hx Family Hypertension: Yes Hx Cardiac Disease: Yes - CABG Hx Family;Other: Another sibling with DM and cardiac hx Physical Exam - Physical Exam General Appearance: Alert, Obvious distress Eye Exam: bilateral normal Ears, Nose, Throat: hearing grossly normal - chronically decreased bilaterally, normal ENT inspection, normal pharynx Neck: full range of motion, supple, other - mild tenderness to palpation over the paraspinal muscles attaching to the scalp bilaterally Respiratory: lungs clear, normal breath sounds, no respiratory distress, no accessory muscle use Cardiovascular/Chest: normal peripheral pulses, no edema, irregularly irregular - initially tachycardic butback to a regular rateafter about 20 minutes. Atrial fibrillation. 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, alert, normal mood/affect, oriented x 3 Skin Exam: pallor Comments: Vital Signs - 24 hr 12/11/18 12/11/18 12/11/18 19:21 19:30 19:53 Temperature 99.6 F Pulse Rate [ 126 H 126 H 104 H left] Respiratory 22 20 22 Rate Blood Pressure 169/71 117/56 [right] O2 Sat by Pulse 98 94 L Oximetry 12/11/18 12/11/18 12/11/18 21:18 22:18 23:01 Temperature 99.2 F Pulse Rate [ 81 80 80 left] Respiratory 20 18 22 Rate Blood Pressure 84/34 114/85 79/50 [right] O2 Sat by Pulse Oximetry 12/11/18 12/12/18 23:20 00:15 Temperature Pulse Rate [ 89 78 left] Respiratory 22 22 Rate Blood Pressure 139/70 102/46 [right] O2 Sat by Pulse 90 L 96 Oximetry berenice note that the blood pressures registering less than 100 on the systolic and were taken with the patient's blood pressure cuff essentially up in the air as the patient was sleeping on his side. Progress - Progress Progress: 12/12/18 00:54 the patient is an 83-year-old male presenting to the emergency room secondary to severe abrupt onset head, chest, back and abdominal pain with associated markedly tachycardia and hypertension. CT scan of the head was negative for any acute pathology. CT angiogram of the chest and abdomen CT with contrast showed no evidence of significant vascular pathology. Pain resolved essentially almost 10 minutes after arrival here. Blood pressures corrected down towards the low normal range. Initial set of cardiac enzymes were negative. Repeat at 4 hours while the patient essentially continued to be asymptomatic showed a rise in troponin. He is not having any chest pain or back pain at this time. EKG does not show any definitive acute changes. No hypoxia. He does have a small amount of abdominal pain which he has had intermittently since he has had the kidney stone several weeks ago. The patient is having a difficult time voiding which he apparently had a couple of weeks ago as well. A Chin catheter is being placed. a urine will be sent for analysis and culture if needed. Given the constellation of symptoms, the patient is going to transferred for higher level of care and further possible cardiac evaluation given the rise in heart enzymes. I'm not going to place the patient on any additional Plavix heparin or Lovenox as aortic pathology is significantly less likely but not definitively ruled out, and the patient is already on Eliquis for his atrial fibrillation. To that end, any catheterization to be done should also preferably include some contrast evaluation of the aorta. The patient is borderline hypotensive. if his blood pressures dropped anymore then we will add a small drip of the Levophed. The blood pressure medications that he received earlier along with the pain medications are also likely contributing some to this. 12/12/18 01:03 bp 106/57, hr 82 12/12/18 02:17 I have so far been unable to secure placement for the patient. The patient is developing some periumbilical to epigastric discomfort. the initial CT with IV contrast showed no evidence of any dissection or aneurysm of the abdominal aorta. No vomiting. No pulsatile mass is palpable at this time. no definite rebound or peritoneal signs. the patient will be given a milligram of morphine and a dose of IV Protonix. blood pressures are holding steady. 12/12/18 02:26 12/12/18 02:44 acceptance for transfer has been obtained. The patient is receiving a 500 cc bolus for borderline blood pressures with systolics ranging from 88-110. Blood pressures did drop significantly with really any pain medications. Transferred for higher level of care. - Results/Orders Results/Orders: Laboratory Tests 12/11/18 12/11/18 12/11/18 18:57 18:57 18:57 WBC 10.4 RBC 4.45 L Hgb 12.5 L Hct 40.1 L MCV 90.2 MCH 28.0 MCHC 31.2 L RDW 20.7 H Plt Count 278 MPV 9.6 Absolute Neuts (auto) 9.60 H Absolute Lymphs (auto) 0.70 L Absolute Monos (auto) 0.00 L Absolute Eos (auto) 0.00 Absolute Basos (auto) 0.00 Neutrophils % 92.6 H Lymphocytes % 6.5 L Monocytes % 0.4 L Eosinophils % 0.2 L Basophils % 0.3 PT 11.5 H INR 1.15 PTT (SP) 23.3 D-Dimer, Quantitative 1.09 H* Sodium 141 Potassium 3.4 L Chloride 104 Carbon Dioxide 25 Anion Gap 15.4 BUN 24 H Creatinine 0.93 BUN/Creatinine Ratio 25.8 H Random Glucose 104 Serum Osmolality 285.6 Calcium 8.9 Total Bilirubin 0.4 AST 36 ALT 26 Alkaline Phosphatase 113 Creatine Kinase 47 CK-MB (CK-2) 2.1 CK-MB (CK-2) % Not Reportable Troponin I < 0.02 B-Natriuretic Peptide 227.0 H* Serum Total Protein 7.1 Albumin 3.6 Globulin 3.5 Albumin/Globulin Ratio 1.0 L Amylase Lipase 12/11/18 23:25 WBC RBC Hgb Hct MCV MCH MCHC RDW Plt Count MPV Absolute Neuts (auto) Absolute Lymphs (auto) Absolute Monos (auto) Absolute Eos (auto) Absolute Basos (auto) Neutrophils % Lymphocytes % Monocytes % Eosinophils % Basophils % PT INR PTT (SP) D-Dimer, Quantitative Sodium Potassium Chloride Carbon Dioxide Anion Gap BUN Creatinine BUN/Creatinine Ratio Random Glucose Serum Osmolality Calcium Total Bilirubin AST ALT Alkaline Phosphatase Creatine Kinase 109 CK-MB (CK-2) 4.2 CK-MB (CK-2) % Not Reportable Troponin I 0.32 H* B-Natriuretic Peptide Serum Total Protein Albumin Globulin Albumin/Globulin Ratio Amylase [address] scan of the head without contrast shows no evidence of any hemorrhage or acute ischemia. No significant hydrocephalus. CT angiogram of chest shows no evidence of pulmonary embolus or aortic dissection. There is extensive calcification. CT angiogram abdomen showed no evidence of any filling defects or significant aneurysm or dissection either. The stone in the distal left ureter does appear to move somewhat more distally and the dilation of the renal pelvis on the left side appears to be reduced when compared to the CT scan from a few weeks ago. No evidence of significant free fluid. Departure - Departure Clinical Impression: Non-ST elevation CA (NSTEMI) Disposition: Transfer to Hospital Departure Forms: ED Discharge - Pt. Copy, Patient Portal Self Enrollment Referrals: Magdy Jones MD [Primary Care Provider] - 1-2 Weeks Home Medications: Ambulatory Orders Folic Acid 1 mg PO AM 12/25/13 Losartan Potassium 50 mg PO DAILY 12/25/13 Methotrexate Sodium [Methotrexate] 12.5 mg PO .QFRIDAYS 12/25/13 Citalopram Hydrobromide [Celexa] 10 mg PO DAILY 02/17/16 Atorvastatin Calcium [Lipitor] 40 mg PO BEDTIME 05/09/18 Nitroglycerin 0.4 mg SL ONCE PRN 11/23/18 Potassium Chloride [Micro-K] 10 meq PO BID 11/23/18 Apixaban [Eliquis] 2.5 mg PO BID 11/25/18 Omeprazole 20 mg PO DAILY 11/25/18 Terazosin HCl 10 mg PO BEDTIME 11/25/18 Sulfa/Trimeth 800/160 (Ds) Tab [Bactrim DS] 1 tablet PO BID 12/11/18 Transfer to Outside Facility - Transfer Information Accepting Provider:: Dr Moon Accepting Facility: [facility] Reason for Transfer: required specialist not available
[2018-12-12] MEDS ORDERED: MORPHINE SULFATE INJ 10 MG/ML VIAL IV ONE (02:25)
[2018-12-12] MEDS ORDERED: PANTOPRAZOLE SODIUM IV 40 MG VIAL IV ONE (02:26)
[2018-12-12] MEDS ORDERED: ASPIRIN TABLET 325 MG TAB PO ONE (02:27)
[2018-12-12] MEDS ORDERED: SODIUM CHLORIDE 0.9% 1000ML 500 ML IVS ONE (02:42)
[2018-12-12 03:02] VITALS: TEMP 96.7; O2SAT 96
[2018-12-12 03:12] VITALS: BP 90/49
== END 2018-12-12 03:12 | disposition short-term general hospital (02) ==
LOC: ER 19:08
DX: I21.4 Non-ST elevation (NSTEMI) myocardial infarction (principal); R51 Headache; M54.2 Cervicalgia; R10.32 Left lower quadrant pain; I48.91 Unspecified atrial fibrillation; I10 Essential (primary) hypertension; F32.9 Major depressive disorder, single episode, unspecified; J44.9 Chronic obstructive pulmonary disease, unspecified; Z86.73 Personal history of transient ischemic attack (TIA), and cerebral infarction without residual deficits; Z79.899 Other long term (current) drug therapy
CPT/HCPCS: 36415; 70450; 71275; 74177; 80053; 81001; 82150; 82550; 82553; 83690; 83880; 84484; 85025; 85379; 85610; 85730; 87086; 87502; 93005; J2270; J7030

== ENCOUNTER → 2019-02-05 | Outpatient (CLI) | payer MEDICARE | LOC: LAB.O 13:25 | PROVIDERS: ATTEND Internal Medicine Interventional Cardiology | DX: I48.0 Paroxysmal atrial fibrillation (principal) ==

== ENCOUNTER → 2019-02-08 | Outpatient (CLI) | payer MEDICARE | LOC: BFHH 10:22 | PROVIDERS: ATTEND Family Medicine | DX: N39.0 Urinary tract infection, site not specified (principal) ==

== ENCOUNTER 2019-03-19 20:55 | Emergency (ER) | payer MEDICARE ==
--- NOTE | 2019-03-19 21:51 | RAD ---
EXAM: XR Chest, 1 View CLINICAL HISTORY: 83 years old and is Male; low blood pressure TECHNIQUE: Frontal view of the chest. COMPARISON: 12/11/2018 FINDINGS: Limitations: None. Lungs: The lungs are hyperinflated. No consolidation. Pleural space: Unremarkable. No pneumothorax. Heart: Unremarkable. No cardiomegaly. Mediastinum: Unremarkable. Bones/joints: Chronic expansion and lucency of the anterior right first rib unchanged. IMPRESSION: No acute findings. Electronically signed by: Ivett Niño MD 03/19/2019 9:49 PM CDT
--- NOTE | 2019-03-19 21:55 | ED.PDOC ---
History of Present Illness - General Chief Complaint: Blood Pressure Problem Stated Complaint: Low blood pressure Time Seen by Provider: 03/19/19 21:41 Source: patient, family Exam Limitations: no limitations - History of Present Illness Initial Comments: HYPOTENSION PER SON, , AND PT, PT DRINKS VERY LITTLE FLUIDS PER DAY - JUST A FEW OUNCES - SINCE HE DOESN'T FEELS THIRSTY. A RESULT, CHRONIC CONSTIPATION AND HAS BM ONLY EVERY 4 OR SO DAYS. TODAY PT STRAINED AT STOOL AND HAD BM X 2. HE BECAME LIGHT HEADED (VASOVAGAL) AND WEAK SO TOOK BP AND IT WAS LOW (80'S/40'S). HIS GAVE HIM A NITROGLYCERIN AND HENCE BP REMAINED LOW. SHE WAS CONCERNED AND BROUGHT HIM TO ER. IN ER, ORTHOSTATICS NEG. BP 151/78. BP BACK TO NL, PT HAS NO SX (NEVER HAD CP NOR SOB), WEAKNESS AND LIGHT HEADEDNESS RESOLVED. PT HAD IA AND STENT DEC 2018 (2 MOS AGO), THUS APPROPRIATE TO DO CARDIAC SCREENING FOR COMPLETENESS. H/O AFIB - ON ELIQUIS. STENT - ON PLAVIX. Timing/Duration: 7-24 hours Activities at Onset: other - STRAINING ON TOILET Prior Chest Pain/Cardiac Workup: cardiac cath, heart attack Improving Factors: other - PT PAIN FREE AND NEVER HAD ANY CP TODAY; JUST TRANSIENT HYPOTENSION (AND CHRONIC CONSTIPATION). Associated Symptoms: denies symptoms Allergies/Adverse Reactions: Allergies NO KNOWN ALLERGY Allergy (Verified 11/23/18 15:18) Home Medications: Ambulatory Orders Folic Acid 1 mg PO AM 12/25/13 Losartan Potassium 50 mg PO DAILY 12/25/13 Citalopram Hydrobromide [Celexa] 10 mg PO DAILY 02/17/16 Atorvastatin Calcium [Lipitor] 40 mg PO BEDTIME 05/09/18 Nitroglycerin 0.4 mg SL ONCE PRN 11/23/18 Apixaban [Eliquis] 2.5 mg PO BID 11/25/18 Omeprazole 20 mg PO DAILY 11/25/18 Ferrous Sulfate [Fe Tabs] 325 mg PO DAILY #30 tab 03/19/19 Review of Systems - Review of Systems Constitutional: Denies: chills, fever, malaise, weakness EENTM: States: no symptoms reported Respiratory: Denies: cough, short of breath Cardiology: Denies: chest pain, palpitations Gastrointestinal/Abdominal: States: constipation. Denies: abdominal pain, diarrhea, nausea, vomiting Genitourinary: States: no symptoms reported Musculoskeletal: States: no symptoms reported Skin: States: no symptoms reported Neurological: Denies: headache, paresthesia, weakness Endocrine: States: no symptoms reported Hematologic/Lymphatic: States: no symptoms reported All other Systems: Reviewed and Negative Past Medical History (General) - Patient Medical History Hx Seizures: No Hx Stroke: Yes - TIA Hx Dementia: No Hx Asthma: No Hx of COPD: Yes Hx Cardiac Disorders: Yes - Hx A-Fib Hx Congestive Heart Failure: No Hx Pacemaker: No Hx Hypertension: Yes Hx Thyroid Disease: No Hx Diabetes: No Hx Gastroesophageal Reflux: Yes Hx Renal Disease: Yes - kidney stones requiring stents Hx of HIV: No Hx MRSA: No Surgical History: cholecystectomy - Vaccination History Hx Tetanus, Diphtheria Vaccination: No Hx Influenza Vaccination: Yes Hx Pneumococcal Vaccination: Yes - Social History Hx Tobacco Use: Yes Hx Chewing Tobacco Use: No Hx Alcohol Use: No Hx Substance Use: No Hx Substance Use Treatment: No Hx Depression: Yes Hx Physical Abuse: No Hx Emotional Abuse: No Hx Suspected Abuse: No - Triage Comment ED Triage Comment: Denies any pain at present. Bowel movements we considered normal today per spouse Family Medical History - Family History Father Living Status: Cause of : prostate cancer Hx Family;Other: kidney stone multiple family members Brother Family History: No Known Living Status: Hx Family Congestive Heart Failure: Yes Hx Family Hypertension: Yes Hx Cardiac Disease: Yes - CABG Hx Family;Other: Another sibling with DM and cardiac hx Physical Exam - Physical Exam General Appearance: Alert, No apparent distress Eyes, Ears, Nose, Throat Exam: PERRL/EOMI, normal ENT inspection Neck: full range of motion, normal inspection Respiratory: chest non-tender, lungs clear, normal breath sounds, no respiratory distress Cardiovascular/Chest: normal peripheral pulses, regular rate, rhythm, no edema, no gallop, no JVD, no murmur Peripheral Pulses: radial,right: 2+, radial,left: 2+, dorsalis pedis,right: 1+, dorsalis pedis,left: 1+, posterior tibialis,right: 1+ Gastrointestinal/Abdominal: normal bowel sounds, non tender, soft, no pulsatile mass Extremity: normal range of motion, normal inspection, no pedal edema, no calf tenderness 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 IRON STUDIES ORDERED. WEAKNESS AND HYPOTENSION EXACERBATED BY VASO-VAGAL HYPOTENSION FROM STRAINING ON THE STOOL TRANSIENT HYPOTENSION - RESOLVED. REPORTED H/O CHRONIC CONSTIPATION; BUN 27, POOR CHRONIC FLUID INTAKE - I ENCOURAGED PT TO START DRINKING 64 OZ FLUID PER DAY WHICH WILL HELP HIS CONSTIPATION AND DECREASE THE NEED TO STRAIN, AND THUS PREVENT VASO-VAGAL EPISODES SUCH THIS, WELL HELP TO PREVENT HYPOTENSION. 03/19/19 22:33 MICROCYTIC, HYPOCHROMIC ANEMIA WITH ELEVATED RDW - NEEDS FURTHER OUTPT W/U. ANEMIA COULD BE FROM ELIQUIS VS LYSIS (ELEV RDW) VS GI LOSSES VS IRON DEFIC VS ACD. IRON STUDIES PENDING. REFER TO GI FOR C-SCOPE AND EGD. PT FEELS WELL AND BP NORMALIZED, THUS IS SAFE FOR DC TO HOME WITH CLOSE OUTPT F/U. WILL START TRIAL OF FERROUS SULFATE 325 PO QDAY (INSTEAD OF BID SINCE IT MAY WORSEN HIS CONSTIPATION.) WBC 4.3 - NEEDS FURTHER OUTPT W/U. RANDOM GLUCOSE 233 - ABOVE 200 GUIDELINE. F/U W/ PCP FOR DM SCREENING. 03/19/19 22:58 CARDIAC EVAL UNREMARKABLE: CXR, BNP, EKG, CARDIAC ENZ, COAGS. 03/19/19 23:28 IRON STUDIES = IRON DEFIC ANEMIA (POOR INTAKE VS GI LOSSES). SERUM IRON VERY LOW AT 16. FERRITIN LOW. TIBC NL. OUTPT TX PER ABOVE. 03/19/19 23:29 - EKG/XRAY/CT EKG: Sinus Departure - Departure Clinical Impression: Vasovagal episode, History of chronic constipation, Microcytic hypochromic anemia, Elevated random blood glucose level, Elevated BUN, Poor fluid intake Hypotension Qualifiers: Hypotension type: other hypotension type Qualified Code(s): I95.89 - Other hypotension Leukopenia Qualifiers: Leukopenia type: lymphocytopenia Qualified Code(s): D72.810 - Lymphocytopenia Iron deficiency anemia Qualifiers: Iron deficiency anemia type: other iron deficiency Qualified Code(s): D50.8 - Other iron deficiency anemias Disposition: Discharge to Home or Self Care Condition: Fair Departure Forms: ED Discharge - Pt. Copy, Patient Portal Self Enrollment Instructions: DI for Hypotension Diet: resume usual diet Activity: increase activity as tolerated Referrals: Magdy Jones MD [Primary Care Provider] - 1-2 Weeks RAHAT BONE MD [Consulting Staff] - 1-2 Weeks Prescriptions: Ferrous Sulfate [Fe Tabs] 325 mg PO DAILY #30 tab Home Medications: Ambulatory Orders Folic Acid 1 mg PO AM 12/25/13 Losartan Potassium 50 mg PO DAILY 12/25/13 Citalopram Hydrobromide [Celexa] 10 mg PO DAILY 02/17/16 Atorvastatin Calcium [Lipitor] 40 mg PO BEDTIME 05/09/18 Nitroglycerin 0.4 mg SL ONCE PRN 11/23/18 Apixaban [Eliquis] 2.5 mg PO BID 11/25/18 Omeprazole 20 mg PO DAILY 11/25/18 Ferrous Sulfate [Fe Tabs] 325 mg PO DAILY #30 tab 03/19/19 Additional Instructions: You have anemia, which has worsened since November. It can be caused by multiple things and it will take further outpatient evaluation to determine the cause. One of the next steps is for you to see the gastrologist, Dr. Bone, who will help determine if there is an intestinal cause, which is very common. Please call Dr. Bone's office to schedule an appointment. Please take the iron tablets (ferrous sulfate) I prescribed and the doctor will see if it helps your anemia over time. Your blood sugar is elevated at 233, so please see your regular doctor for further evaluation. Please try to increase your fluid intake to 64 ounces per day. This will help the constipation which can help to decrease the need to strain at the stool. Straining at the stool can cause a "vasovagal response", whereby the blood pressure drops quickly, resulting in transient light-headedness and weakness.
[2019-03-19 23:39] VITALS: BP 156/60; TEMP 96.1; O2SAT 99
== END 2019-03-19 23:45 | disposition home or self-care (01) ==
LOC: ER 20:55
DX: I95.9 Hypotension, unspecified (principal); R55 Syncope and collapse; D50.8 Other iron deficiency anemias; D72.810 Lymphocytopenia; R79.89 Other specified abnormal findings of blood chemistry; R73.9 Hyperglycemia, unspecified; F32.9 Major depressive disorder, single episode, unspecified; I10 Essential (primary) hypertension; K21.9 Gastro-esophageal reflux disease without esophagitis; I48.91 Unspecified atrial fibrillation; J44.9 Chronic obstructive pulmonary disease, unspecified; I25.2 Old myocardial infarction; Z87.19 Personal history of other diseases of the digestive system; Z87.891 Personal history of nicotine dependence; Z86.73 Personal history of transient ischemic attack (TIA), and cerebral infarction without residual deficits; Z79.899 Other long term (current) drug therapy; Z79.01 Long term (current) use of anticoagulants; Z95.5 Presence of coronary angioplasty implant and graft; Z79.02 Long term (current) use of antithrombotics/antiplatelets

== ENCOUNTER → 2019-04-02 | Outpatient (CLI) | payer MEDICARE | LOC: NC 11:55 | PROVIDERS: ATTEND Family Medicine | DX: R73.9 Hyperglycemia, unspecified (principal); R33.9 Retention of urine, unspecified ==

== ENCOUNTER → 2019-05-10 | Outpatient (CLI) | payer MEDICARE | DX: R30.0 Dysuria (principal) ==

== ENCOUNTER 2019-05-29 15:56 | Emergency (ER) | payer MEDICARE ==
[2019-05-29] MEDS ORDERED: cloNIDine HCL 0.1 MG TAB PO ONE (17:09)
[2019-05-29 18:05] VITALS: O2SAT 95
--- NOTE | 2019-05-29 18:47 | ED.PDOC ---
History of Present Illness - General Chief Complaint: Cardiovascular Problem Stated Complaint: Elevated BP Time Seen by Provider: 05/29/19 16:39 Source: patient Exam Limitations: no limitations - History of Present Illness Initial Comments: PT SENT FROM PCP'S OFFICE FOR ELEVATED BP AND BASIC W/U. HAS HAD PROGRESSIVE INCREASE IN BLOOD PRESSURE. PT DENIES ANY SPECIFIC SX'S BUT STATES HE DOES NOT FEEL WELL. Severity: mild Improving Factors: nothing Associated Symptoms: denies symptoms Allergies/Adverse Reactions: Allergies NO KNOWN ALLERGY Allergy (Verified 11/23/18 15:18) Home Medications: Ambulatory Orders Folic Acid 1 mg PO AM 12/25/13 Losartan Potassium 50 mg PO DAILY 12/25/13 Citalopram Hydrobromide [Celexa] 10 mg PO DAILY 02/17/16 Atorvastatin Calcium [Lipitor] 40 mg PO BEDTIME 05/09/18 Nitroglycerin 0.4 mg SL ONCE PRN 11/23/18 Apixaban [Eliquis] 2.5 mg PO BID 11/25/18 Omeprazole 20 mg PO DAILY 11/25/18 Ferrous Sulfate [Fe Tabs] 325 mg PO DAILY #30 tab 03/19/19 Review of Systems - Review of Systems Constitutional: Denies: chills, fever EENTM: States: no symptoms reported Respiratory: States: no symptoms reported Cardiology: Denies: chest pain, palpitations Gastrointestinal/Abdominal: Denies: nausea, vomiting Genitourinary: States: no symptoms reported Musculoskeletal: States: no symptoms reported Skin: States: no symptoms reported Neurological: States: no symptoms reported Endocrine: States: no symptoms reported Hematologic/Lymphatic: States: no symptoms reported Past Medical History (General) - Patient Medical History Hx Seizures: No Hx Stroke: Yes - TIA Hx Dementia: No Hx Asthma: No Hx of COPD: Yes Hx Cardiac Disorders: Yes - Hx A-Fib Hx Congestive Heart Failure: No Hx Pacemaker: No Hx Hypertension: Yes Hx Thyroid Disease: No Hx Diabetes: No Hx Gastroesophageal Reflux: Yes Hx Renal Disease: Yes - kidney stones requiring stents Hx of HIV: No Hx MRSA: No - Vaccination History Hx Tetanus, Diphtheria Vaccination: No Hx Influenza Vaccination: Yes Hx Pneumococcal Vaccination: Yes - Social History Hx Tobacco Use: Yes - Quit smoking, Vapes now Hx Chewing Tobacco Use: No Hx Alcohol Use: No Hx Substance Use: No Hx Substance Use Treatment: No Hx Depression: Yes Hx Physical Abuse: No Hx Emotional Abuse: No Hx Suspected Abuse: No Family Medical History - Family History Father Living Status: Cause of : prostate cancer Hx Family;Other: kidney stone multiple family members Brother Family History: No Known Living Status: Hx Family Congestive Heart Failure: Yes Hx Family Hypertension: Yes Hx Cardiac Disease: Yes - CABG Hx Family;Other: Another sibling with DM and cardiac hx Physical Exam - Physical Exam General Appearance: Alert, No apparent distress Eyes, Ears, Nose, Throat Exam: PERRL/EOMI Neck: full range of motion, supple Respiratory: lungs clear, normal breath sounds Cardiovascular/Chest: regular rate, rhythm, no murmur Gastrointestinal/Abdominal: non tender, soft, no organomegaly Extremity: normal range of motion, non-tender Neurologic: alert, normal mood/affect Skin Exam: normal color, warm/dry Lymphatic: no adenopathy Progress - Progress Progress: 05/29/19 18:56 BP MUCH BETTER, PT FEELS BETTER. HAS RX FOR NEW BP MEDICATION TO START TOMORROW. - EKG/XRAY/CT EKG: Sundeep - RATE 53, LAD, 1ST DEGREE AV BLOCK, OLD ANT WALL ID, NAIP, , Sinus, no ST T wave changes, Unchanged from - 03/08/19 Departure - Departure Clinical Impression: HTN (hypertension), benign CAD (coronary artery disease) Qualifiers: Coronary Disease-Associated Artery/Lesion type: [place] artery [place] vs. transplanted heart: [place] heart Associated angina: without angina Qualified Code(s): I25.10 - Atherosclerotic heart disease of [place] coronary artery without angina pectoris Time of Disposition: 18:59 Disposition: Discharge to Home or Self Care Condition: Good Departure Forms: ED Discharge - Pt. Copy, Patient Portal Self Enrollment Instructions: High Blood Pressure in Adults Referrals: Magdy Jones MD [Primary Care Provider] - 1-2 Weeks Home Medications: Ambulatory Orders Folic Acid 1 mg PO AM 12/25/13 Losartan Potassium 50 mg PO DAILY 12/25/13 Citalopram Hydrobromide [Celexa] 10 mg PO DAILY 02/17/16 Atorvastatin Calcium [Lipitor] 40 mg PO BEDTIME 05/09/18 Nitroglycerin 0.4 mg SL ONCE PRN 11/23/18 Apixaban [Eliquis] 2.5 mg PO BID 11/25/18 Omeprazole 20 mg PO DAILY 11/25/18 Ferrous Sulfate [Fe Tabs] 325 mg PO DAILY #30 tab 03/19/19
[2019-05-29 19:13] VITALS: BP 152/68; TEMP 95.9
== END 2019-05-29 19:05 | disposition home or self-care (01) ==
LOC: ER 15:56
DX: I10 Essential (primary) hypertension (principal); I25.10 Atherosclerotic heart disease of native coronary artery without angina pectoris; R00.1 Bradycardia, unspecified; I44.0 Atrioventricular block, first degree; F32.9 Major depressive disorder, single episode, unspecified; J44.9 Chronic obstructive pulmonary disease, unspecified; I48.91 Unspecified atrial fibrillation; K21.9 Gastro-esophageal reflux disease without esophagitis; F17.290 Nicotine dependence, other tobacco product, uncomplicated; Z79.899 Other long term (current) drug therapy

== ENCOUNTER → 2019-06-17 | Outpatient (CLI) | payer MEDICARE | LOC: GMAJ 14:39 | PROVIDERS: ATTEND Family Medicine | DX: R30.0 Dysuria (principal) ==

== ENCOUNTER 2019-07-27 09:44 | Inpatient (IN) | payer MEDICARE, OTHER ==
--- NOTE | 2019-07-27 10:39 | RAD ---
EXAM DESCRIPTION: Femur,Left CLINICAL HISTORY: 83 years Male fall wiht left hip pain COMPARISON: December 11, 2014. TECHNIQUE: Four images of the left femur were obtained. FINDINGS: Prior internal fixation left femoral neck. Metallic screws again present. Satisfactory articulation left femoral head with acetabular region. Subtle lucency left ischio in region of acetabulum. Fracture in this region not excluded. No additional fractures involving the proximal or distal left femur. Posterior patellar spurring. Moderate bony demineralization. Marked vascular calcification. IMPRESSION: New subtle lucencies involving left ischium in region of mid and inferior acetabulum. Correlation with CT scan of the left hip would be suggested to further exclude subtle fracture in this region. Prior internal fixation left femoral neck. No additional fracture seen. Electronically signed by: Estefany Farris MD 07/27/2019 10:37 AM CDT
--- NOTE | 2019-07-27 10:44 | RAD ---
EXAM DESCRIPTION: Hip,Left 2 Views CLINICAL HISTORY: 83 years, Male, fall with left hip pain COMPARISON: CT abdomen and pelvis 05/28/2015 TECHNIQUE: Two views of the left hip FINDINGS/IMPRESSION: Two views of the left hip demonstrate cannulated transcervical screw fixation of an old left femoral neck fracture which demonstrate adequate healing and bridging callus formation. No hardware fracture or displacement. No acute displaced fracture or dislocation. The left hip joint is intact with osteoarthritic changes. The bone mineralization is decreased. Atherosclerotic vascular calcifications. Electronically signed by: Vern Winslow DO 07/27/2019 10:42 AM CDT
--- NOTE | 2019-07-27 11:25 | CT ---
Procedure: CT PELVIS WITHOUT IV CONTRAST Exam Date: 07/27/2019 10:47 AM CDT Ordering Provider: Ketan Veras Clinical Indication: fall, possible acetabular injury on left Comparison: None Technique: CT images of the pelvis were obtained without contrast administration. Coronal and sagittal reformats were obtained. This exam was performed according to our departmental dose-optimization program which includes automated exposure control, adjustment of the mA and/or kV according to patient size and/or use of iterative reconstruction technique. Findings: There are three separate artery threaded screws traversing the left femoral neck. No evidence of hardware failure or loosening is present. There is a geographic area of patchy sclerosis involving the left femoral head laterally and may represent an area of avascular necrosis. It involves primarily the central and posterior weightbearing surfaces. No evidence of subchondral collapse. There is profound osteopenia but there is a subtle nondisplaced fracture extending from the left anterior column of the acetabulum into the left iliac bone. No significant articular surface step-off is present. Hip joint spaces are maintained. Soft tissues are unremarkable in appearance. Vascular calcifications involve the abdominal aorta and iliac vessels. No pathologic adenopathy is present. Impression: Subtle nondisplaced left acetabular fracture extending into the left iliac bone. No articular surface incongruity/step-off. Profound osteopenia. 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 Electronically signed by: More Starks MD 07/27/2019 11:24 AM CDT
[2019-07-27] MEDS ORDERED: MORPHINE SULFATE INJ 10 MG/ML VIAL IV ONE (11:44)
--- NOTE | 2019-07-27 11:44 | ED.PDOC ---
History of Present Illness - General Chief Complaint: Lower Extremity Injury Stated Complaint: left hip pain Time Seen by Provider: 07/27/19 09:54 Source: patient Exam Limitations: no limitations - History of Present Illness Initial Comments: the patient is an 83-year-old male presenting to the emergency room secondary to having fallen at home. He normally gets around with a cane or a walker. He does have numerous chronic medical problems and is fairly weak to start with. The patient is reporting pain in the left hip only. He did not pass out. He simply tripped and fell. Timing/Duration: momentarily Severity: severe Improving Factors: immobilization Worsening Factors: movement Associated Symptoms: denies symptoms Allergies/Adverse Reactions: Allergies NO KNOWN ALLERGY Allergy (Verified 11/23/18 15:18) Home Medications: Ambulatory Orders Folic Acid 1 mg PO AM 12/25/13 Losartan Potassium 50 mg PO DAILY 12/25/13 Citalopram Hydrobromide [Celexa] 10 mg PO DAILY 02/17/16 Atorvastatin Calcium [Lipitor] 40 mg PO BEDTIME 05/09/18 Nitroglycerin 0.4 mg SL ONCE PRN 11/23/18 Apixaban [Eliquis] 2.5 mg PO BID 11/25/18 Omeprazole 20 mg PO DAILY 11/25/18 Ferrous Sulfate [Fe Tabs] 325 mg PO DAILY #30 tab 03/19/19 Review of Systems - Review of Systems Constitutional: States: no symptoms reported EENTM: States: no symptoms reported Respiratory: States: no symptoms reported Cardiology: States: no symptoms reported Gastrointestinal/Abdominal: States: no symptoms reported Genitourinary: States: no symptoms reported Musculoskeletal: States: see HPI Skin: States: no symptoms reported Neurological: States: no symptoms reported Endocrine: States: no symptoms reported Hematologic/Lymphatic: States: no symptoms reported All other Systems: No Change from Baseline Past Medical History (General) - Patient Medical History Hx Seizures: No Hx Stroke: Yes - TIA Hx Dementia: No Hx Asthma: No Hx of COPD: Yes Hx Cardiac Disorders: Yes - Hx A-Fib Hx Congestive Heart Failure: No Hx Pacemaker: No Hx Hypertension: Yes Hx Thyroid Disease: No Hx Diabetes: No Hx Gastroesophageal Reflux: Yes Hx Renal Disease: Yes - kidney stones requiring stents Hx of HIV: No Hx MRSA: No - Vaccination History Hx Tetanus, Diphtheria Vaccination: No Hx Influenza Vaccination: Yes - 2018 Hx Pneumococcal Vaccination: Yes - 2018 - Social History Hx Tobacco Use: Yes - Quit smoking, Vapes now Hx Chewing Tobacco Use: No Hx Alcohol Use: No Hx Substance Use: No Hx Substance Use Treatment: No Hx Depression: Yes Hx Physical Abuse: No Hx Emotional Abuse: No Hx Suspected Abuse: No - Activities of Daily Living Hospice Agency (if applicable):: [facility] Family Medical History - Family History Father Living Status: Cause of : prostate cancer Hx Family;Other: kidney stone multiple family members Brother Family History: No Known Living Status: Hx Family Congestive Heart Failure: Yes Hx Family Hypertension: Yes Hx Cardiac Disease: Yes - CABG Hx Family;Other: Another sibling with DM and cardiac hx Physical Exam - Physical Exam General Appearance: Alert, No apparent distress Eye Exam: bilateral normal Ears, Nose, Throat: hearing grossly normal, normal ENT inspection Neck: full range of motion, supple Respiratory: lungs clear, normal breath sounds, no respiratory distress, no accessory muscle use Cardiovascular/Chest: normal peripheral pulses, no edema, irregularly irregular Peripheral Pulses: radial,right: 2+, radial,left: 2+, dorsalis pedis,right: 2+, dorsalis pedis,left: 2+ Gastrointestinal/Abdominal: non tender, soft Rectal Exam: deferred Back Exam: no CVA tenderness, no vertebral tenderness Extremity: no pedal edema, no calf tenderness, normal capillary refill, other - pain in left hip. 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 Skin Exam: normal color Comments: Vital Signs - 24 hr 07/27/19 07/27/19 07/27/19 10:00 10:08 11:00 Temperature 97.5 F L Pulse Rate [ 67 66 left brachial] Respiratory Rate Blood Pressure 166/77 136/72 [right brachial ] O2 Sat by Pulse 95 93 L Oximetry Progress - Progress Progress: 07/27/19 11:44 the patient is an 83-year-old male presenting to the emergency room after having had a fall at home. Workup reveals a nondisplaced left acetabular fracture. The patient will be admitted for pain control secondary to uncontrolled pain as well as physical therapy evaluation and training to help him improve his gait stability. He is obviously going to require the use of assistive walking device in order to keepsome weight off of the acetabulum until it heals. in his current state the patient is unable to perform his activities of daily living. Baseline labs have been ordered. X-ray of the left hip and femur show no evidence of any femur fracture however there is a student of a small acetabular deformity. CT scan of the pelvis without contrast shows an anterior left nondisplaced acetabular fracture. 07/27/19 11:46 nargis schwartz [id number] Departure - Departure Clinical Impression: Uncontrolled pain, Inability to perform activities of daily living Acetabulum fracture, left Qualifiers: Encounter type: initial encounter Sublocation of acetabulum: anterior column Fracture type: closed Fracture alignment: nondisplaced Qualified Code(s): S32.435A - Nondisplaced fracture of anterior column [iliopubic] of left acetabulum, initial encounter for closed fracture Fall at home Qualifiers: Encounter type: initial encounter Qualified Code(s): W19.XXXA - Unspecified fall, initial encounter; Y92.009 - Unspecified place in unspecified non- institutional (private) residence as the place of occurrence of the external cause Disposition: Admit Patient Departure Forms: ED Discharge - Pt. Copy, Patient Portal Self Enrollment Referrals: Magdy Jones MD [Primary Care Provider] - 1-2 Weeks Home Medications: Ambulatory Orders Folic Acid 1 mg PO AM 12/25/13 Losartan Potassium 50 mg PO DAILY 12/25/13 Citalopram Hydrobromide [Celexa] 10 mg PO DAILY 02/17/16 Atorvastatin Calcium [Lipitor] 40 mg PO BEDTIME 05/09/18 Nitroglycerin 0.4 mg SL ONCE PRN 11/23/18 Apixaban [Eliquis] 2.5 mg PO BID 11/25/18 Omeprazole 20 mg PO DAILY 11/25/18 Ferrous Sulfate [Fe Tabs] 325 mg PO DAILY #30 tab 03/19/19 Decision To Admit - Decistion To Admit Decision to Admit Reason: Accidental Injury Decision to Admit Date: 07/27/19 Decision to Admit Time: 11:47
--- NOTE | 2019-07-27 12:13 | HP ---
SUPERVISING PHYSICIAN: Chalo Healy M.D. CHIEF COMPLAINT: Left hip pain status post same level fall. HISTORY OF PRESENT ILLNESS: Mr. Cruz is an 83 year-old male patient who presented to the Emergency Room today secondary to falling at home last night. He normally gets around with a walker or cane. He noted last night that he was trying to turn his air conditioner off, he turned, tripped and fell. He denies any other complaints other than left hip pain. He is currently under hospice care for chronic heart issues and is frail and very weak, and of course advanced in age. His imaging studies showed on pelvis CT that he had a nondisplaced left acetabular fracture with no other acute findings other than profound osteopenia and some questionable avascular necrosis in the left femoral head without subchondral collapse. Laboratory studies showed a normal white count at 5,700, hemoglobin 13.7, hematocrit 40.5, platelet count was within normal limits. No left shift. Chemistries showed normal electrolytes, BUN slightly elevated at 25, otherwise creatinine was normal at 0.84. Liver functions were all within normal limits. BNP was slightly elevated at 173. Given his advanced age and his frailty and current findings, the patient is going to be admitted for management of the acetabular fracture and close monitoring with physical therapy and orthopedic consultation to help with discharge planning. The patient is admitted in stable condition. PAST MEDICAL HISTORY: 1. Advanced cardiovascular disease with a history of atrial fibrillation on Eliquis currently under hospice care. 2. Benign prostatic hypertrophy. 3. Hyperlipidemia. 4. Hypertension. 5. Peptic ulcer disease. 6. Diverticulosis. 7. Multiple kidney stones. 8. Osteoporosis. 9. Rheumatoid arthritis. 10. Previous transient ischemic attack. 11. Vertigo. 12. Chronic obstructive pulmonary disease. 13. Depression. 14. Osteoarthritis. PAST SURGICAL HISTORY: 1. Transurethral incision of the prostate on 10/31/18. 2. Cholecystectomy. 3. Left hip fracture repair. 4. Vagotomy and pyloroplasty. 5. Colonoscopy. CURRENT MEDICATIONS: 1. Potassium chloride 10 mEq daily. 2. Omeprazole 20 mg daily. 3. Nitroglycerin 0.5 mg as needed. 4. Methotrexate 12 mg Monday. 5. Megace 400 mg b.i.d. 6. Losartan 50 mg daily. 7. [place] 10/325 one every 6 hours as needed. 8. Lasix 40 mg daily. 9. Folic acid 1 mg daily. 10. Iron 65 mg daily. 11. Plavix 75 mg daily. 12. Clonidine 0.1 mg every 8 hours as needed 13. Celexa 10 mg daily. 14. Lipitor 40 mg at bedtime. 15. Amlodipine 5 mg daily. ALLERGIES: NO KNOWN DRUG ALLERGIES. FAMILY HISTORY: Father secondary to prostate cancer. Mother secondary to congestive heart failure. SOCIAL HISTORY: The patient has a history of smoking but quit 6 years previously. He does drink on a rare social occasion. Does not use illicit drugs. He is and has 3 children and lives in [place], [place]. REVIEW OF SYSTEMS: Negative for any fevers, general malaise or chill. Positive for weakness. HEENT: Negative for any nasal congestion, sore throat, ear aches, headaches or vision changes. RESPIRATORY: Negative for any shortness of breath, coughing or wheezing. CARDIOVASCULAR: Negative for any chest pains, palpitations, syncopal episodes or peripheral edema. GASTROINTESTINAL: Negative for any nausea, vomiting, diarrhea, constipation or abdominal pains. GENITOURINARY: Denies any dysuria, hematuria or polyuria. MUSCULOSKELETAL: As noted in history of present illness. SKIN: Negative for lesions or rashes. NEUROLOGIC: Negative for headache, seizure activity or ataxia. PHYSICAL EXAMINATION: VITAL SIGNS: Temperature 97.5, pulse 67, blood pressure 166/77, respirations 19, satting 95% on room air. Admission weight 58.9 kg. GENERAL: The patient is very frail in appearance but appears to be comfortable in no acute distress. HEENT: Tympanic membranes are clear bilaterally. Oropharynx is pink and moist without any lesions. NECK: Supple, non-tender. Full range of motion. No jugular venous distention. CHEST: Lungs were clear to auscultation bilaterally, just slightly diminished towards the bases without any rhonchi, wheezing or rales. CARDIOVASCULAR: Regular rate and rhythm without appreciable murmurs, gallops, or rubs. ABDOMEN: Soft, non-tender. Positive bowel sounds. EXTREMITIES: No cyanosis, clubbing, or edema. He does have some discomfort over the left hip. No obvious deformities. No external or internal rotation or shortening. Distally pulses were strong. Capillary refill is brisk. No reported neurosensory deficits to the lower extremities. NEUROLOGIC: He is alert and oriented times three. Cranial nerves II-XII are grossly intact. Facial features were symmetrical. Extraocular movements are within normal limits. There is no notable nystagmus. He is alert and oriented times three. LABORATORY STUDIES: White count 5,700, hemoglobin 13.7, hematocrit 40.5, platelet count 176,000. Differential showed to be without a left shift. Chemistries showed normal electrolytes, BUN 25, creatinine normal at 0.84. Blood sugar is 121. Liver functions are all within normal limits. Troponin is less than 0.02. BNP was 173. Urinalysis was pending. RADIOLOGY: He had femur and hip x-rays and pelvis CT with the only acute finding being a nondisplaced left acute acetabular fracture with profound osteopenia with probably avascular necrosis in the left femoral head without any subchondral collapse. ASSESSMENT: 1. Acute left acetabular fracture, nondisplaced, secondary to same level fall with no loss of consciousness. 2. Generalized weakness secondary to chronic heart disease currently under hospice care resulting in same level fall as noted above. 3. History of hypertension showing to be stable. 4. Rheumatoid arthritis on methotrexate. 5. History of paroxysmal atrial fibrillation on Eliquis with controlled ventricular rate on admission. 6. History of peptic ulcer disease on proton pump inhibitor. 7. Chronic nephrolithiasis. 8. History of diverticulosis. 9. History of previous transient ischemic attacks with some vertigo. 10. Chronic obstructive pulmonary disease without any signs of exacerbation. PLAN: Given the patient's advanced age and frailty he is going to be admitted for further evaluation, physical therapy and orthopedic services. He will be placed on morphine for pain control and oral [place] as needed. Will put him on bed rest and if he is able to void without any complications avoid any catheter placements, but should he have issues we certainly with utilize a catheter for the patient's comfort issues. The patient is expected to be here at least 2 to 3 days until we get a better picture of his discharge planning. Will go ahead and get a social consultation and orthopedic services on board tomorrow for evaluation on Monday. Will await a urinalysis. He will be on DVT prophylaxis with his medication of Eliquis. Will start him on a regular diet. Until we can transition to outpatient management will continue to monitor and treat as needed. #[id number] [facility]
[2019-07-27] MEDS ORDERED: ACETAMINOPHEN 325 MG TAB PO PRN (12:51)
[2019-07-27] MEDS ORDERED: ONDANSETRON INJ 4 MG/2 ML VIAL IV PRN (12:51)
[2019-07-27] MEDS ORDERED: HYDROcodone 5MG/APAP 325MG 1 EA TAB PO PRN (12:51)
[2019-07-27] MEDS ORDERED: SODIUM CHLORIDE 0.9% (FLUSH) 10 ML SYG IV PRN (12:51)
[2019-07-27] MEDS ORDERED: MAGNESIUM HYDROXIDE 30 ML UD PO PRN (12:51)
[2019-07-27] MEDS ORDERED: ALUM & MAG HYDROX-SIMETHICONE 30 ML UD PO PRN (12:51)
[2019-07-27] MEDS ORDERED: MORPHINE SULFATE INJ 10 MG/ML VIAL IV PRN (12:51)
[2019-07-27] MEDS ORDERED: IV SET AND CAP CHANGE INJ INJ SCH (13:00)
[2019-07-27] MEDS ORDERED: PROMETHAZINE HCL INJ 25 MG/ML VIAL IVPB PRN (15:05)
[2019-07-27] MEDS: MORPHINE SULFATE INJ 10 MG/ML VIAL IV SCH ×3 (15:47→23:31)
[2019-07-27] MEDS ORDERED: TAMSULOSIN 0.4 MG CAP PO SCH (21:00)
[2019-07-28] MEDS: MORPHINE SULFATE INJ 10 MG/ML VIAL IV SCH ×6 (03:20→23:32)
[2019-07-28] MEDS: OMEPRAZOLE CAP 20 MG CAP PO SCH (06:05)
[2019-07-28] MEDS: IRON 65 MG PO SCH (06:58)
[2019-07-28] MEDS: CLOPIDOGREL 75 MG TAB PO SCH (08:27)
[2019-07-28] MEDS: amLODIPine BESYLATE 5 MG TAB PO SCH (08:27)
[2019-07-28] MEDS: CITALOPRAM 10 MG PO SCH (08:27)
[2019-07-28] MEDS: FOLIC ACID 1 MG TAB PO SCH (08:28)
[2019-07-28] MEDS: LOSARTAN 100 MG PO SCH (08:28)
[2019-07-28] MEDS: DOCUSATE SODIUM 100 MG CAP PO SCH (08:28)
[2019-07-28] MEDS ORDERED: DEX 5% W/NACL 0.45% 1000ML 1,000 ML IVS ONE (09:37)
[2019-07-28] MEDS ORDERED: DEX 5% W/NACL 0.45% 1000ML 1,000 ML IVS PRN (09:42)
[2019-07-29] MEDS: MORPHINE SULFATE INJ 10 MG/ML VIAL IV SCH ×6 (03:52→23:40)
[2019-07-29] MEDS: OMEPRAZOLE CAP 20 MG CAP PO SCH (06:01)
[2019-07-29] MEDS: IRON 65 MG PO SCH (07:43)
--- NOTE | 2019-07-29 08:17 | PN ---
DATE: 07-28-19 SUPERVISING PHYSICIAN: Chalo Healy MD SUBJECTIVE: The patient has been under the care of hospice. He has pain management, he has had no further complaint. No shortness of breath or chest pain and remains comfortable. OBJECTIVE: VITAL SIGNS: Stable, temperature 93, pulse 80, blood pressure 130/71, respirations 16, oxygen saturation 90 to 95% on room air. Weight 15.9 kg. GENERAL: The patient is resting comfortably, appears to be in no acute distress. He is alert. CHEST: Lung sounds are clear to auscultation bilaterally. HEART: Regular rate and rhythm. ABDOMEN: Soft, non-tender, positive bowel sounds. EXTREMITIES: No edema. Distal pulses were strong. Capillary refill brisk. NEUROLOGIC: He is alert and oriented x 3. LABORATORY: No additional studies were completed today. RADIOLOGY: No additional studies. ASSESSMENT: 1. Acute left acetabular fracture, nondisplaced, secondary to same level fall with no loss of consciousness. 2. Generalized weakness secondary to chronic heart disease currently under hospice care resulting in same level fall as noted above. 3. History of hypertension showing to be stable. 4. Rheumatoid arthritis on methotrexate. 5. History of paroxysmal atrial fibrillation on Eliquis with controlled ventricular rate on admission. 6. History of peptic ulcer disease on proton pump inhibitor. 7. Chronic nephrolithiasis. 8. History of diverticulosis. 9. History of previous transient ischemic attacks with some vertigo. 10. Chronic obstructive pulmonary disease without any signs of exacerbation. PLAN: The patient remains under hospice. Will consult with Dr. Kumar in the morning as well as physical therapy consultation. Continue pain management and once pain controlled, transition back to home to continue hospice care. Until the, we will continue to monitor and treat as needed. #[id number] [facility]
[2019-07-29] MEDS: amLODIPine BESYLATE 5 MG TAB PO SCH (08:37)
[2019-07-29] MEDS: LOSARTAN 100 MG PO SCH (08:37)
[2019-07-29] MEDS: CLOPIDOGREL 75 MG TAB PO SCH (08:37)
[2019-07-29] MEDS: FOLIC ACID 1 MG TAB PO SCH (08:37)
[2019-07-29] MEDS: DOCUSATE SODIUM 100 MG CAP PO SCH (08:37)
[2019-07-29] MEDS: CITALOPRAM 10 MG PO SCH (08:37)
--- NOTE | 2019-07-29 08:51 | CONS ---
CHIEF COMPLAINT: Left hip pain. HISTORY OF PRESENT ILLNESS: Mr. Cruz is an 83-year-old male with a history of a fall that occurred on the date of presentation. He had fallen directly on the left side. He has had a history of hip fracture on that side previously. He has pain now that is sharp located predominantly in the hip with some slight radiation to the leg. It is at a level of 10 with attempted range of motion. Alleviating factors include no range of motion and simply getting pain medicine. He was admitted and I was consulted. He denies any other injury associated with this fall. PAST MEDICAL HISTORY: 1. Cardiovascular disease. 2. Benign prostatic hypertrophy. 3. Hyperlipidemia. 4. Hypertension. 5. Peptic ulcer. 6. Diverticulosis. 7. Kidney stones. 8. Osteoporosis. 9. Rheumatoid arthritis. 10. Transient ischemic attack. 11. Vertigo. 12. Chronic obstructive pulmonary disease. 13. Depression. PAST SURGICAL HISTORY: 1. Transurethral resection of the prostate. 2. Cholecystectomy. 3. Percutaneous fixation of left hip fracture. 4. Vagotomy. 5. Colonoscopy. MEDICATIONS: 1. Potassium. 2. Omeprazole. 3. Nitroglycerin. 4. Methotrexate. 5. Megace. 6. Losartan. 7. Jackson. 8. Lasix. 9. Folate. 10. Iron. 11. Plavix. 12. Clonidine. 13. Celexa. 14. Lipitor. 15. Amlodipine. ALLERGIES: NO KNOWN DRUG ALLERGIES. SOCIAL HISTORY: He has a history of smoking, but does not currently drink. He is and lives in [place]. FAMILY HISTORY: None pertinent to today's complaint. REVIEW OF SYSTEMS: Negative except as indicated in the History of Present Illness. HEENT: The patient reports no symptoms. RESPIRATORY: The patient reports no symptoms. CARDIOVASCULAR: The patient reports no symptoms. GASTROINTESTINAL: The patient reports no symptoms. GENITOURINARY: The patient reports no symptoms. MUSCULOSKELETAL: Negative except as noted in History of Present Illness. SKIN: Negative per the patient. NEUROLOGIC: The patient reports no symptoms. PHYSICAL EXAMINATION: VITAL SIGNS: Blood pressure 166/77. Respirations 19. Pulse 67. O2 saturation 95%. Weight 59 kg. Temperature 97.5. MENTAL STATUS: The patient is awake, alert, and is able to give a good history and participate in the physical. The patient is oriented to person, place and time. SKIN: Normal tone and turgor. HEENT: Normocephalic, atraumatic. Pupils equal, round and reactive. Mucosal membranes are moist. NECK: Normal range of motion. No thyromegaly, no lymphadenopathy. CHEST: Normal respiratory excursion. CARDIAC: Regular rate and rhythm. No murmurs, rubs or gallops. MUSCULOSKELETAL: Bilateral upper extremities show full active range of motion without pain. He has intact sensation throughout both extremities. All joints are without crepitus or deformity. The right lower extremity shows no pain with range of motion of the hip, knee, ankle or digits. There is no deformity. It is warm and well perfused. Strength is 5/5. There are no outward signs of trauma, no bruising and no crepitus. The left lower extremity shows difficulty with range of motion of the hip. It is difficult to do a knee exam secondary to pain in the hip. He has intact sensation. It is warm and well perfused. He has 5/5 strength in plantar flexion. There is no overall malalignment of the extremity. There is no bruising, there is no swelling in the extremity. He does have pain with range of motion of the hip that is sharp. RADIOLOGY: My interpretation of CT scan does show very minimal fracture of the left acetabulum. There is no displacement and it appears as though it is a stable fracture pattern. ASSESSMENT: 1. Left acetabular fracture. PLAN: Given the stable nature of the fracture, I think it is safe for him to begin weightbearing, but only for foot-flat. He needs x-rays after he has been up ambulating. He will be able to progress as we see healing. #[id number] [facility]
[2019-07-29] MEDS: MORPHINE SULFATE INJ 10 MG/ML VIAL IV PRN (16:06)
[2019-07-29] MEDS ORDERED: TAMSULOSIN 0.4 MG CAP ONE (19:18)
[2019-07-30] MEDS: MORPHINE SULFATE INJ 10 MG/ML VIAL IV SCH ×3 (03:30→11:56)
[2019-07-30] MEDS: OMEPRAZOLE CAP 20 MG CAP PO SCH (06:09)
[2019-07-30] MEDS: IRON 65 MG PO SCH (07:31)
[2019-07-30] MEDS: DOCUSATE SODIUM 100 MG CAP PO SCH (07:59)
[2019-07-30] MEDS: FOLIC ACID 1 MG TAB PO SCH (07:59)
[2019-07-30] MEDS: LOSARTAN 100 MG PO SCH (07:59)
[2019-07-30] MEDS: CITALOPRAM 10 MG PO SCH (07:59)
[2019-07-30] MEDS: CLOPIDOGREL 75 MG TAB PO SCH (07:59)
[2019-07-30] MEDS: amLODIPine BESYLATE 5 MG TAB PO SCH (07:59)
[2019-07-30 08:47] VITALS: BP 150/68; TEMP 98.1
[2019-07-30] MEDS: MORPHINE SULFATE INJ 10 MG/ML VIAL IV PRN ×2 (09:39→15:36)
--- NOTE | 2019-07-30 11:32 | RAD ---
PROVIDED CLINICAL HISTORY/REASON FOR EXAM: hip fracture Findings: Number of images: Two Location: Left hip The previously described subtle nondisplaced left acetabular fracture is not well identified by x-ray. Redemonstrated partially cannulated screws associated with the healed left femur fracture. Atherosclerotic disease. Stable degenerative changes. No new fracture identified. Osteopenia. IMPRESSION: Previously described subtle nondisplaced left acetabular fracture is not well identified by x-ray. Electronically signed by: Gibson Kat MD 07/30/2019 11:30 AM CDT
[2019-07-30 13:55] VITALS: O2SAT 91
--- NOTE | 2019-07-30 14:37 | DS ---
SUPERVISING PHYSICIAN: Magdy Jones MD ADMISSION DIAGNOSIS: 1. Acute left acetabular fracture which was nondisplaced, secondary to a same- level fall. 2. Generalized weakness secondary to chronic heart failure under hospice. 3. History of hypertension. 4. Rheumatoid arthritis on methotrexate. 5. History of paroxysmal atrial fibrillation on Eliquis therapy. 6. History of peptic ulcer disease on proton pump inhibitor. 7. Chronic nephrolithiasis. 8. History of diverticulosis. 9. History of previous transient ischemic attacks. 10. Chronic obstructive pulmonary disease without exacerbation. DISCHARGE DIAGNOSIS: 1. Acute left acetabular fracture which was nondisplaced, secondary to a same- level fall. 2. Generalized weakness secondary to chronic heart failure under hospice. 3. History of hypertension. 4. Rheumatoid arthritis on methotrexate. 5. History of paroxysmal atrial fibrillation on Eliquis therapy. 6. History of peptic ulcer disease on proton pump inhibitor. 7. Chronic nephrolithiasis. 8. History of diverticulosis. 9. History of previous transient ischemic attacks. 10. Chronic obstructive pulmonary disease without exacerbation. HOSPITAL COURSE: This is an 83-year-old male patient who presented to the Emergency Room after a fall. He is currently under hospice care for weakness and chronic heart issues. Pelvic continue the showed a nondisplaced left acetabular fracture. He ended up being admitted under hospice for pain control. He was actually evaluated by Dr. Kumar and was instructed that he could utilize about 25% weightbearing and it would take about 2 to 3 months for this to heal, however, there was not an indication for any surgical intervention. Hospice was in charge of his care while he was in the hospital. He will be discharged today under hospice once again. Further instructions and medication will be clarified by the hospice team. #[id number] [facility]
[2019-08-03] MEDS ORDERED: METHOTREXATE 2.5 MG PO SCH (09:00)
== END 2019-07-30 16:20 | disposition hospice, home (50) | DRG 536 ==
LOC: ER 09:44 → MS 12:13 → OBSVTOIN 12:13 → UNDOADMOB 12:13
PROVIDERS: ADMIT Nurse Practitioner Family; ATTEND Nurse Practitioner
DX: S32.402A Unspecified fracture of left acetabulum, initial encounter for closed fracture (principal); N40.0 Benign prostatic hyperplasia without lower urinary tract symptoms; E78.5 Hyperlipidemia, unspecified; I10 Essential (primary) hypertension; M81.0 Age-related osteoporosis without current pathological fracture; M06.9 Rheumatoid arthritis, unspecified; M85.80 Other specified disorders of bone density and structure, unspecified site; J44.9 Chronic obstructive pulmonary disease, unspecified; W01.0XXA Fall on same level from slipping, tripping and stumbling without subsequent striking against object, initial encounter; I48.0 Paroxysmal atrial fibrillation; N32.0 Bladder-neck obstruction; R42 Dizziness and giddiness; K27.9 Peptic ulcer, site unspecified, unspecified as acute or chronic, without hemorrhage or perforation; F32.9 Major depressive disorder, single episode, unspecified; Z66 Do not resuscitate; Z86.73 Personal history of transient ischemic attack (TIA), and cerebral infarction without residual deficits; Z79.02 Long term (current) use of antithrombotics/antiplatelets; Z79.891 Long term (current) use of opiate analgesic; Z79.899 Other long term (current) drug therapy; F17.290 Nicotine dependence, other tobacco product, uncomplicated; Y92.008 Other place in unspecified non-institutional (private) residence as the place of occurrence of the external cause; Z87.81 Personal history of (healed) traumatic fracture

== ENCOUNTER → 2020-09-10 | Outpatient (CLI) | payer OTHER | LOC: BFHOS 09:40 | PROVIDERS: ATTEND Family Medicine | DX: R30.0 Dysuria (principal) ==

== ENCOUNTER 2020-10-16 14:36 | Emergency (ER) | payer MEDICARE, OTHER ==
[2020-10-16] MEDS ORDERED: LIDOCAINE HCL 2% (MOUTH-THROAT) 15 ML UD ONE (15:08)
[2020-10-16] MEDS ORDERED: LACTULOSE SYRUP 20 GM/30 ML UD PO ONE (15:18)
--- NOTE | 2020-10-16 15:46 | ED.PDOC ---
History of Present Illness - General Chief Complaint: Abdominal Pain Stated Complaint: constipation Time Seen by Provider: 10/16/20 14:39 Source: patient, family Exam Limitations: clinical condition - History of Present Illness Initial Comments: The patient is an 85-year-old male presented to the emergency room with his secondary to a weeks worth of constipation. For the last 2 to 3 days he has been having some lower abdominal and perirectal pain with straining at the toilet. He was partially manually disimpacted by home health this morning. On rectal exam today he is actually passing some stool on his own into his diaper and we further get manual disimpaction on him. He does have a hemorrhoid which is causing him some discomfort. He has not been throwing up. He has been taking some oral intake. He is on hospice for multiple reasons. The patient is on morphine as well for those same reasons. Activity level has been low. Timing/Duration: 1 week Severity: moderate Improving Factors: nothing Worsening Factors: nothing Associated Symptoms: malaise Allergies/Adverse Reactions: Allergies NO KNOWN ALLERGY Allergy (Verified 11/23/18 15:18) Home Medications: Ambulatory Orders Amlodipine Besylate 5 mg PO DAILY 10/16/20 Citalopram Hydrobromide [Citalopram] 20 mg PO DAILY 10/16/20 Clopidogrel Bisulfate 75 mg PO DAILY 10/16/20 Isosorbide Mononitrate [Isosorbide Mononitrate ER] 60 mg PO DAILY 10/16/20 Lactulose Syrup [Chronulac] 30 ml PO Q4HR PRN #500 ml 10/16/20 Losartan Potassium 100 mg PO DAILY 10/16/20 Methotrexate Sodium [Methotrexate] 2.5 mg PO DAILY 10/16/20 Morphine Oral Concentrate [Roxanol Concentrate] 20 mg PO PRN PRN 10/16/20 Pantoprazole Sodium 40 mg PO DAILY 10/16/20 Tramadol HCl 50 mg PO PRN PRN 10/16/20 Review of Systems - Review of Systems Constitutional: States: no symptoms reported EENTM: States: no symptoms reported Respiratory: States: no symptoms reported Cardiology: States: no symptoms reported Gastrointestinal/Abdominal: States: constipation Genitourinary: States: no symptoms reported Musculoskeletal: States: no symptoms reported Skin: States: no symptoms reported Neurological: States: no symptoms reported Endocrine: States: no symptoms reported All other Systems: No Change from Baseline Past Medical History (General) - Patient Medical History Hx Seizures: No Hx Stroke: No Hx Dementia: No Hx Asthma: No Hx of COPD: Yes Hx Cardiac Disorders: Yes - Hx A-Fib Hx Congestive Heart Failure: No Hx Pacemaker: No Hx Hypertension: Yes Hx Thyroid Disease: No Hx Diabetes: No Hx Gastroesophageal Reflux: Yes Hx Renal Disease: Yes - kidney stones requiring stents Hx of HIV: No Hx MRSA: No - Vaccination History Hx Tetanus, Diphtheria Vaccination: No Hx Influenza Vaccination: Yes - 2018 Hx Pneumococcal Vaccination: Yes - 2018 - Social History Hx Tobacco Use: Yes - Quit smoking, Vapes now Hx Chewing Tobacco Use: No Hx Alcohol Use: No Hx Substance Use: No Hx Substance Use Treatment: No Hx Depression: Yes Hx Physical Abuse: No Hx Emotional Abuse: No Hx Suspected Abuse: No Family Medical History - Family History Father Living Status: Cause of : prostate cancer Hx Family;Other: kidney stone multiple family members Brother Family History: No Known Living Status: Hx Family Congestive Heart Failure: Yes Hx Family Hypertension: Yes Hx Cardiac Disease: Yes - CABG Hx Family;Other: Another sibling with DM and cardiac hx Physical Exam - Physical Exam General Appearance: Alert, Other - Uncomfortable Eye Exam: bilateral normal Ears, Nose, Throat: hearing grossly normal - Chronically decreased bilaterally, normal pharynx - Well-hydrated Neck: non-tender, supple Respiratory: no respiratory distress, no accessory muscle use Cardiovascular/Chest: normal peripheral pulses, no edema Peripheral Pulses: radial,right: 2+, radial,left: 2+ Gastrointestinal/Abdominal: non tender, soft Rectal Exam: other - Hemorrhoid at about 8:00. No bleeding. 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 Clinically, the patient is still taking oral intake and still having bowel movements. He is not clinically obstructed. The patient had stopped taking his MiraLAX which likely contributed to the issue today. He has taken milk of magnesia for at least the last 3 to 4 days and that needs to be discontinued short-term. The patient is going to be placed on lactulose which can be used every 4 hours as needed to keep the patient going to the bathroom adequately while on opiates. Additionally increasing activity level will also help stimulate bowel movements as well as increasing fiber intake. He does not need to take the lactulose at the same time that he takes his other medications as it can reduce absorption. Abrupt discontinuation of the morphine should be avoided as it can cause some significant withdrawals, which his was likely seeing this morning in the form of some confusion. He does need to be kept very well-hydrated. ER warnings are given. Follow-up with primary care doctor early next week. nargis lana [phone] - Results/Orders Results/Orders: X-ray of the abdomen shows chronic changes and one mildly dilated loop of small bowel that could represent a focal ileus. Moderate stool. Departure - Departure Clinical Impression: Constipation due to opioid therapy Disposition: Discharge to Home or Self Care Condition: Poor Departure Forms: ED Discharge - Pt. Copy, Patient Portal Self Enrollment Instructions: DI for Abdominal Pain-Adult Diet: other - High-fiber Activity: increase activity as tolerated Referrals: Magdy Jones MD [Primary Care Provider] - 1-2 Weeks Prescriptions: Lactulose Syrup [Chronulac] 30 ml PO Q4HR PRN #500 ml PRN Reason: Constipation Home Medications: Ambulatory Orders Amlodipine Besylate 5 mg PO DAILY 10/16/20 Citalopram Hydrobromide [Citalopram] 20 mg PO DAILY 10/16/20 Clopidogrel Bisulfate 75 mg PO DAILY 10/16/20 Isosorbide Mononitrate [Isosorbide Mononitrate ER] 60 mg PO DAILY 10/16/20 Lactulose Syrup [Chronulac] 30 ml PO Q4HR PRN #500 ml 10/16/20 Losartan Potassium 100 mg PO DAILY 10/16/20 Methotrexate Sodium [Methotrexate] 2.5 mg PO DAILY 10/16/20 Morphine Oral Concentrate [Roxanol Concentrate] 20 mg PO PRN PRN 10/16/20 Pantoprazole Sodium 40 mg PO DAILY 10/16/20 Tramadol HCl 50 mg PO PRN PRN 10/16/20 Additional Instructions: The patient is an 85-year-old male presented to emergency room secondary to significant constipation. Clinically, the patient is still taking oral intake and still having bowel movements. He is not clinically obstructed. The patient had stopped taking his MiraLAX which likely contributed to the issue today. He has taken milk of magnesia for at least the last 3 to 4 days and that needs to be discontinued short-term. The patient is going to be placed on lactulose which can be used every 4 hours as needed to keep the patient going to the bathroom adequately while on opiates. Additionally increasing activity level will also help stimulate bowel movements as well as increasing fiber intake. He does not need to take the lactulose at the same time that he takes his other medications as it can reduce absorption. Abrupt discontinuation of the morphine should be avoided as it can cause some significant withdrawals, which his was likely seeing this morning in the form of some confusion. He does need to be kept very well-hydrated. ER warnings are given. Follow-up with primary care doctor early next week.
--- NOTE | 2020-10-16 15:49 | RAD ---
EXAM DESCRIPTION: Abdomen Series CLINICAL HISTORY: abd pain 3 days COMPARISON: May 13, 2018 FINDINGS: Frontal view of the chest and supine and upright images of the abdomen were submitted. There is atherosclerosis. Aorta is tortuous. Surgical clips at the right upper quadrant compatible with prior cholecystectomy. There is a mildly dilated small bowel loop in the left upper quadrant which could represent a focal ileus. Calcifications at the level of the pancreatic bed could be secondary to chronic pancreatitis changes. Cardiac silhouette is within normal limits. There is no focal parenchymal or pleural disease. There is no free air in the abdomen. . IMPRESSION: Mildly dilated small bowel loop at the left upper quadrant could represent a focal ileus. Electronically signed by: Gm Ko MD 10/16/2020 3:47 PM EDITOR MANAGING DIRECTOR
[2020-10-16 16:20] VITALS: BP 163/80; TEMP 97.1; O2SAT 95
== END 2020-10-16 16:14 | disposition home or self-care (01) ==
LOC: ER 14:36
DX: K59.03 Drug induced constipation (principal); T40.2X5A Adverse effect of other opioids, initial encounter; K64.9 Unspecified hemorrhoids; F32.9 Major depressive disorder, single episode, unspecified; J44.9 Chronic obstructive pulmonary disease, unspecified; I48.91 Unspecified atrial fibrillation; K21.9 Gastro-esophageal reflux disease without esophagitis; I10 Essential (primary) hypertension; Z79.899 Other long term (current) drug therapy; Z87.891 Personal history of nicotine dependence

== ENCOUNTER → 2020-10-19 | Outpatient (CLI) | payer MEDICARE | LOC: BFHH 14:09 | PROVIDERS: ATTEND Family Medicine | DX: R30.0 Dysuria (principal) ==